=== PATIENT | male | born 1945 | race African-American/Black ===

== ENCOUNTER 2016-11-26 06:15 | Inpatient (IN) ==
[2016-11-26] MEDS ORDERED: *HR* FentaNYL (PF) 100 MCG/2 ML VIAL ONE (06:33)
[2016-11-26] MEDS ORDERED: *HR* Midazolam HCl 2 MG/2 ML VIAL ONE (06:33)
[2016-11-26] MEDS ORDERED: Dexamethasone 4 MG/ML VIAL ONE (06:35)
[2016-11-26] MEDS ORDERED: *HR* Rocuronium Bromide 50 MG/5 ML VIAL ONE ×3 (06:35→10:47)
[2016-11-26] MEDS ORDERED: Lidocaine -MPF 2% 2 ML VIAL ONE (06:35)
[2016-11-26] MEDS ORDERED: Lidocaine -MPF 4% 5 ML AMPUL ONE (06:35)
[2016-11-26] MEDS ORDERED: *HR* Succinylcholine 200 MG/10 ML VIAL IVP ONE (06:35)
[2016-11-26] MEDS ORDERED: *HR* Propofol 200 MG/20 ML VIAL IVP ONE (06:35)
[2016-11-26] MEDS ORDERED: Ondansetron 4 MG/2 ML VIAL ONE (06:35)
[2016-11-26] MEDS ORDERED: Lidocaine 1% 20 ML MDV ID ONE (06:50)
[2016-11-26] MEDS ORDERED: CeFAZolin Pre 2,000 MG/100 ML 2,000 MG/100 ML BAG IVPB ONE (06:50)
[2016-11-26] MEDS ORDERED: Ringers Solution, Lactated 1,000 ML IVC SCH (07:00)
--- NOTE | 2016-11-26 07:05 | Anesthesia Evaluation PreOp ---
Date of Encounter: 11/26/16 Time of Encounter: 07:03 - Past History Planned Operation: Right Lap. Radicle Nephrectomy Cardiac History: HTN Pulmonary History: Denies Any Significant HX SKEIN DYER History: Denies Any Significant HX Other Medical History: Diabetes Type II, Other (Gout) Anesthesia History: No Prior Anesthetic Complications, Past Anesthesia (1989) Alcohol Use: none Drug use: none Medications and Allergies Allopurinol [Zyloprim] 300 mg PO DAILY 07/12/16 [History] Gabapentin [Neurontin] 300 mg PO BID 07/12/16 [History] GlyBURIDE 5 mg PO BIDWM 07/12/16 [History] Lisinopril [Zestril] 10 mg PO DAILY 07/12/16 [History] Lovastatin 10 mg PO DAILY 07/12/16 [History] Metformin HCl [Glucophage] 1,000 mg PO BID 07/12/16 [History] HYDROcodone/Acet 10/325 mg [Stanford 10-325 mg] 1 tab PO Q6HR PRN #42 tab 10/22/16 [Rx] Linagliptin [Tradjenta] 5 mg PO DAILY 10/22/16 [History] Ondansetron HCl [Zofran] 4 mg PO Q6HR PRN #20 tablet 10/22/16 [Rx] Aspirin [Lo-Dose Aspirin EC] 81 mg PO DAILY 11/05/16 [History] Tamsulosin HCl [Flomax] 0.4 mg PO DAILY 11/05/16 [History] Allergies No Known Allergies Allergy (Verified 10/22/16 14:41) - Meds/Allergy Pre-op Review Medications Reviewed: Yes Allergies Reviewed: Yes Beta Blockers on Current Med List: Yes If Beta Blockers taken, Date/Time (Last Dose taken): Atenolol @ 0705: 11/26/2016 Anesthesia Results - Labs Laboratory Tests 10/22/16 11/14/16 11/14/16 15:19 15:45 15:45 WBC 7.2 Hgb 12.4 L Hct 37.0 L Plt Count 135 L INR 1.2 Sodium 138 Potassium 4.4 Chloride 106 Carbon Dioxide 21 BUN 13 Creatinine 0.92 - Imaging EKG: image reviewed (ST, LAFB) Anesthesia Exam O2 Sat Height 1.88 m Height 1.88 m Height 1.88 m Weight 107.501 kg Weight 107.501 kg Weight 107.501 kg O2 Sat by Pulse Oximetry 99 O2 Sat by Pulse Oximetry 99 Vital Signs Temp Pulse Resp BP Pulse Ox 98.1 F 97 18 124/66 99 11/26/16 06:38 11/26/16 06:38 11/26/16 06:38 11/26/16 06:38 11/26/16 06:38 Height: 6'2'' Weight: 237# NPO (# of Hours): > 8 hrs Pain Scale: 0 Pain Scale Used: Numeric (1 - 10) - HEENT Pupil (Motor): Pupils equal, EOMI Mallampati: III Teeth: Edentulous Oral Opening: Greater than 3 - SKEIN DYER LOC: Oriented SKEIN DYER Motor: Normal RUE, Normal LUE, Normal RLE, Normal LLE, Normal Face SKEIN DYER Sensory: Normal: RUE, LUE, RLE, LLE, Face - Cardiac Rhythm: Regular Murmur: None JVD: No Carotid Bruit: No - Pulmonary Breath Sounds: bilateral Clear Respiratory Effort: Symmetrical Anesthesia Assess/Plan ASA Score: 2 Modified Arianne Scale for Level of Consciousness: Cooperative, oriented, and tranquil Anesthetic Plan: General Autologous Blood: Yes Monitoring Plan: Standard Monitors, A-Line Recovery Plan: PACU
--- NOTE | 2016-11-26 07:11 | History & Physical Report ---
Date of Encounter: 11/26/16 Time of Encounter: 07:11 24 Hour HP Update - Instructions Instructions: If the History and Physical is less than 30 days old and was completed prior to A.M. admission and or procedure and has NOT been updated on calendar day of procedure please complete this update prior to performing procedure. - Update Patient reports changes in Medical Condition: No Changes in assessment/condition: No Changes in Medication: No Preop tests/diagnostics Reviewed: Yes Surgery Remains Indicated: Yes Consent for Planned Operative Procedure(s) Verified: Yes - Pre-Operative Checklist Preoperative Checklist Indicated: Yes Prophylactic Antibiotic Ordered: Yes Home Medications Include Beta Ralf: Yes Beta Ralf Taken Today (Day of Surgery): Yes Beta Ralf Taken Yesterday (Day Prior to Surgery): Yes Is VTE Prophylaxis Indicated?: Yes
[2016-11-26] MEDS ORDERED: Bupivacaine/EPI 1:200k 0.25%PF 10 ML VIAL INFILT ONE (07:13)
[2016-11-26] MEDS ORDERED: Water for inj. (sterile) 10 ML IV ONE ×2 (07:15→11:19)
[2016-11-26] MEDS ORDERED: *HR* Phenylephrine 10 MG/ML VIAL ONE ×2 (07:16→10:42)
[2016-11-26] MEDS ORDERED: Heparin 1,000 UNITS/500 mL NS 500 ML ONE ×2 (07:17→07:21)
[2016-11-26] MEDS ORDERED: EPHEDrine 50 MG/ML VIAL ONE (08:39)
[2016-11-26] MEDS ORDERED: Neostigmine Methylsulfate 3 MG/3 ML SYRINGE ONE (08:53)
[2016-11-26] MEDS ORDERED: *HR* Promethazine 25 MG/ML VIAL IVP PRN (09:36)
[2016-11-26] MEDS ORDERED: Ondansetron 4 MG/2 ML VIAL IVP ONE (09:36)
[2016-11-26] MEDS ORDERED: Dexamethasone 4 MG/ML VIAL IVP ONE (09:36)
[2016-11-26] MEDS ORDERED: *HR* Labetalol 100 MG/20 ML MDV IVP PRN (09:36)
[2016-11-26] MEDS ORDERED: *HR* HYDROmorphone (PF) 1 MG/ML SYRINGE IVP PRN (09:36)
[2016-11-26] MEDS ORDERED: *HR* Heparin 5,000 UNIT/ML VIAL ONE (10:15)
[2016-11-26 10:26] LABS: ABG Base Excess -2.7 mEq/L (-2.0 to 3.0); ABG HCO3 21.8 mEQ/L (21-27); ABG Oxygen Saturation 100 % (95-98); ABG PCO2 36 mmHg (35-45); ABG PH 7.39 pH Units (7.32-7.45); ABG PO2 223 mmHg (85-104); ABG TCO2 22.9 mEq/L (20-26)
[2016-11-26 11:13] LABS: ABG Hematocrit 33 % (35-51)
[2016-11-26] MEDS ORDERED: *HR* HYDROmorphone 2 MG/ML SYRINGE ONE (11:17)
--- NOTE | 2016-11-26 12:26 | Operative Note ---
Date of procedure: 11/26/16 Pre-op diagnosis: right renal mass Post-op diagnosis: same Procedure: right laparoscopic converted to open radical nephrectomy Urethral dilation and cystoscopy with difficult catheter placement Anesthesia: GETA Surgeon: Quentin Solis Estimated blood loss (cc): 1,000 Specimen: Right kidney Condition: stable Disposition: PACU Procedure in Detail: Patient was taken back to the operating room positioned supine on the operating table. Anesthesia was applied without complication. I attempted to place a Perkins catheter but it would not pass through the mid penile urethra. I suspected a urethral stricture. I passed a sensor wire but it would not pass and then I converted to a zip wire which did pass. I dilated the penile urethra with Leonel dilators from 12 [place] up to 18. Initially the Perkins catheter did not pass after back loading onto the zip wire. I performed a flexible cystoscopy and confirmed proper positioning of the zip wire in the bladder. He did have significant BPH but a fairly patent prostatic urethra. At that point I withdrew the cystoscope and then was able to place the 16 [place] Perkins catheter over the zip wire. I returned clear urine. He was then positioned in a modified 45 up flank position. He was prepped and draped sterile fashion. I made a Whitt incision in the right lower quadrant for my hand port. I was able to enter the peritoneum in this location. 2 additional laparoscopic ports were placed in the umbilicus and then superiorly below the sternum. Using the Harmonic scalpel I began to reflect the descending colon over after incising the white line of Toldt. I quickly realized that the posterior aspect of the colon and mesentery was densely adherent to the tumor. I was able to also image superiorly near the duodenum which did also appear to be adherent to the tumor. After approximately 15-20 minutes of an attempt to free this up laparoscopically I felt it safer to move to an open procedure. A 15 blade scalpel was used to make a modified chevron incision and the underlying tissue was dissected and opened using a left cautery Bovie. I was able to enter the peritoneum over the kidney and then place a Bookwalter retractor. I had good exposure with the Bookwalter in place. Unfortunately, there was minimal surgical planes between the posterior mesentery of the colon and the tumor itself I am concerned that there are may be extension of the tumor in this location. With blunt dissection sharp dissection and Bovie I was finally able to free up the colon and mesentery. I do not feel that I compromised the blood flow to the colon as it appeared viable following the procedure and the mesentery remained intact. There were some nodular areas within the mesentery either reaction or potentially gross extension of tumor. The duodenum was not as densely adherent but still did not separate as freely as it should have. I used a combination of Metzenbaum scissors, blunt dissection and surgical clips to release the duodenum and complete the Merrifield maneuver. There were multiple parasitic vessels surrounding Rolo does fashion which did result in continued blood loss during the procedure. I was able to identify the ureter and likely gonadal vein which appeared significantly dilated. I elected to take both the gonadal vein and ureter with an endovascular stapler. Was able to continue my dissection superiorly until I encountered the renal artery. This was taken with the endovascular stapler. The renal vein was identified as well and taken separately with the endovascular stapler. I was able to free up the posterior and lateral attachments using blunt dissection, clips, Harmonic scalpel. The majority of my bleeding occurred superior to the renal vein as the vena cava and tumor were not easily . It appears that the adrenal vein was injured but I was able to control this with a Sondra clamp. I was eventually able to continue my dissection superiorly using multiple endovascular staple loads to come across the superior pole of the kidney. Multiple clips were placed along the adrenal vein which provided hemostasis and the clamp was removed. I placed FloSeal and Surgicel in this area for further hemostasis. We estimated blood loss at 1000 mL at this point. Both my abdominal incisions were closed using #1 looped PDS for the fascia. This included the hand port and by modified chevron incision. 2-0 Vicryl was used to close the Tiesha's tissue and the skin was all closed with jacy. The patient was stable after the procedure and there were no apparent complications besides the potential tumor extension mentioned in the operative note.
[2016-11-26] MEDS ORDERED: 0.9 % Sodium Chloride 500 ML ONE (12:31)
--- NOTE | 2016-11-26 13:31 | Anesthesia Evaluation Post Op ---
Date of Encounter: 11/26/16 Time of Encounter: 13:28 - Vital Signs Vital Signs: Vital Signs/O2 Sat/Glucose, Most Recent Temp Pulse Resp BP Pulse Ox 97.7 F 78 16 108/55 98 11/26/16 13:06 11/26/16 13:26 11/26/16 13:26 11/26/16 13:26 11/26/16 13:26 Blood Glucose* 183 - Lungs Lungs: Clear Ascult./Percussion - Airway Airway: Non-obstructed - Cardiovascular Regular Rate, Baseline Rhythm - Mental Status Mental Status: Asleep with brisk response to light stimulation - Pain Pain Scale: 0 Pain Scale used: Radha (Faces) - Nausea Vomiting Nausea Vomiting: Not Present - Hydration Hydration: NPO (denies fluid/ice chips. Denies N/V. prefers to rest.) Notes: 11/26/16 13:29 Will ordered [employer] to hang 1 unit PRBC sedondary to hypotension r/t 1000 mL EBL. Unit completely infused at 1325. Patient states "feeling better". VS normal. - Discharge PostOp Status: Transfer Patient to floor
[2016-11-26] MEDS ORDERED: Naloxone 0.4 MG/ML INJ IVP PRN (13:52)
[2016-11-26] MEDS ORDERED: Ondansetron 4 MG/2 ML VIAL IVP PRN (13:52)
[2016-11-26] MEDS ORDERED: *HR* Morphine 2 MG/ML SYRINGE IVP PRN (13:52)
[2016-11-26] MEDS ORDERED: *HR* Promethazine 25 MG/ML VIAL IV PRN (13:52)
[2016-11-26] MEDS: 0.9 % Sodium Chloride 1,000 ML IVC SCH (15:45)
[2016-11-26] MEDS ORDERED: *HR* Dextrose 50 % in Water (Syg) 50 ML SYRINGE IVP PRN (17:36)
[2016-11-26] MEDS ORDERED: D5% in Water 1,000 ML IV PRN (17:36)
[2016-11-26] MEDS ORDERED: Dextrose Gel 15 GM PO PRN ×2 (17:36)
[2016-11-26] MEDS: ceFAZolin 2,000 MG in D5% in Water 100 ML IVPB SCH (18:30)
[2016-11-26] MEDS: Insulin LISPRO 300 UNITS/3 ML VIAL SQ SCH ×2 (18:31→20:52)
[2016-11-26] MEDS: *HR* HYDROmorphone (PF) 1 MG/ML SYRINGE IVP PRN (20:52)
[2016-11-27] MEDS: 0.9 % Sodium Chloride 1,000 ML IVC SCH ×2 (00:34→19:59)
[2016-11-27] MEDS: ceFAZolin 2,000 MG in D5% in Water 100 ML IVPB SCH ×2 (00:34→07:38)
[2016-11-27] MEDS: *HR* HYDROmorphone (PF) 1 MG/ML SYRINGE IVP PRN (00:35)
[2016-11-27 05:09] LABS: Basophils % 0.2 %; Hematocrit 31.7 % (37.5-50.1); Hemoglobin 10.7 g/dL (12.9-16.9); Immature Granulocytes % 0.4 % (0-4); Lymphocytes # 0.9 K/mcL (0.6-4.6); Lymphocytes % 7.3 %; Mean Corpuscular HGB Conc 33.8 g/dL (31.6-35.5); Mean Corpuscular Hemoglobin 31.6 pg (28.0-33.3); Mean Corpuscular Volume 93.5 fL (83.0-100.0); Mean Platelet Volume 11.5 fL (9.4-12.4); Monocytes # 1.8 K/mcL (0.0-1.3); Monocytes % 14.7 %; Neutrophils # 9.2 K/mcL (1.6-8.9); Platelet Count 125 K/mcL (140-400); Red Blood Count 3.39 M/mcL (4.19-5.50); Red Cell Distribution Width 13.8 % (11.5-14.5); Segmented Neutrophils % 77.4 %
[2016-11-27 05:37] LABS: BUN/Creatinine Ratio 14 (6-26); Blood Urea Nitrogen 20 mg/dL (8-26); Calcium 7.8 mg/dL (8.6-10.8); Carbon Dioxide 19 mEq/L (19-29); Chloride 105 mEq/L (98-109); Glucose 193 mg/dL (70-99); Osmolality,Calculated 284 (280-300); Potassium 4.4 mEq/L (3.5-4.5); Sodium 133 mEq/L (136-145); eGFR For African Americans > 60 (> 60); eGFR For Non-African Americans 50 (> 60)
--- NOTE | 2016-11-27 07:25 | Urology Progress Note ---
Date of Encounter: 11/27/16 Time of Encounter: 07:23 - Assessment and Plan (1) Right kidney mass Current Visit: No Status: Acute Assessment and plan: lap converted to open right radiacl nephrectomy. difficult case. stable this AM. labs/vitals OK. keep cath in place bc dilated urethral stricture. out of bed to chair today. apply abd binder. Progress Note Subjective: still having pain Narrative: feels OK. expected pain Objective Initial Vital Signs Temp Pulse Resp BP Pulse Ox 98.1 F 97 18 124/66 99 11/26/16 06:38 11/26/16 06:38 11/26/16 06:38 11/26/16 06:38 11/26/16 06:38 - General physical appearance Present: well developed, no distress - Additional Exam russell cath with clear urine. - Labs 11/27/16 04:12 11/27/16 04:12 Diabetes panel 11/27/16 Range/Units 04:12 Sodium 133 L (136-145) mEq/L Potassium 4.4 (3.5-4.5) mEq/L Chloride 105 (98-109) mEq/L Carbon Dioxide 19 (19-29) mEq/L BUN 20 (8-26) mg/dL Creatinine 1.41 H (0.72-1.25) mg/dL Glucose 193 H (70-99) mg/dL Calcium 7.8 L (8.6-10.8) mg/dL Calcium panel 11/27/16 Range/Units 04:12 Calcium 7.8 L (8.6-10.8) mg/dL Pituitary panel 11/27/16 Range/Units 04:12 Sodium 133 L (136-145) mEq/L Potassium 4.4 (3.5-4.5) mEq/L Chloride 105 (98-109) mEq/L Carbon Dioxide 19 (19-29) mEq/L BUN 20 (8-26) mg/dL Creatinine 1.41 H (0.72-1.25) mg/dL Glucose 193 H (70-99) mg/dL Calcium 7.8 L (8.6-10.8) mg/dL Adrenal panel 11/27/16 Range/Units 04:12 Sodium 133 L (136-145) mEq/L Potassium 4.4 (3.5-4.5) mEq/L Chloride 105 (98-109) mEq/L Carbon Dioxide 19 (19-29) mEq/L BUN 20 (8-26) mg/dL Creatinine 1.41 H (0.72-1.25) mg/dL Glucose 193 H (70-99) mg/dL Calcium 7.8 L (8.6-10.8) mg/dL - VTE Documentation of Mechanical Device: Intermittent pneumatic compression device Consult Discharge Plan - Plan Referrals: Debi Richard [Primary Care Provider] -
[2016-11-27] MEDS: *HR* GlyBURIDE 5 MG TABLET PO SCH ×2 (07:37→16:42)
[2016-11-27] MEDS: Insulin LISPRO 300 UNITS/3 ML VIAL SQ SCH ×4 (07:40→22:54)
[2016-11-27] MEDS: *HR* OxyCODONE/APAP 5/325 TABLET PO PRN ×2 (09:59→22:52)
[2016-11-28] MEDS: *HR* OxyCODONE/APAP 5/325 TABLET PO PRN ×2 (03:12→19:47)
[2016-11-28] MEDS: 0.9 % Sodium Chloride 1,000 ML IVC SCH ×3 (03:13→19:50)
--- NOTE | 2016-11-28 07:08 | Urology Progress Note ---
Date of Encounter: 11/28/16 Time of Encounter: 07:06 - Assessment and Plan (1) Right kidney mass Current Visit: No Status: Acute Assessment and plan: hold diet bc some nausea. pt is passing gas. remove russell. will check labs bc pt doesnt feel as good as yesterday. overall doing OK. Progress Note Subjective: still having pain, flatus, nausea Objective Initial Vital Signs Temp Pulse Resp BP Pulse Ox 98.1 F 97 18 124/66 99 11/26/16 06:38 11/26/16 06:38 11/26/16 06:38 11/26/16 06:38 11/26/16 06:38 - General physical appearance Present: well developed, no distress - Abdomen Present: distended (distanded but soft. incisions closed and dry. ) - Additional Exam urine clear. - Labs 11/27/16 04:12 11/27/16 04:12 - VTE Documentation of Mechanical Device: Intermittent pneumatic compression device Consult Discharge Plan - Plan Referrals: Debi Richard [Primary Care Provider] -
[2016-11-28 07:59] LABS: Hematocrit 34.8 % (37.5-50.1); Hemoglobin 11.5 g/dL (12.9-16.9); Mean Corpuscular Hemoglobin 30.8 pg (28.0-33.3); Mean Corpuscular Volume 93.3 fL (83.0-100.0); Mean Platelet Volume 10.5 fL (9.4-12.4); Platelet Count 121 K/mcL (140-400); Red Blood Count 3.73 M/mcL (4.19-5.50); Red Cell Distribution Width 13.6 % (11.5-14.5)
[2016-11-28 08:12] LABS: Potassium 4.2 mEq/L (3.5-4.5)
[2016-11-28] MEDS: *HR* GlyBURIDE 5 MG TABLET PO SCH ×2 (08:28→18:52)
[2016-11-28] MEDS: Insulin LISPRO 300 UNITS/3 ML VIAL SQ SCH ×4 (08:28→21:41)
[2016-11-29] MEDS: 0.9 % Sodium Chloride 1,000 ML IVC SCH ×3 (04:03→16:33)
[2016-11-29] MEDS: *HR* OxyCODONE/APAP 5/325 TABLET PO PRN (04:10)
[2016-11-29] MEDS: *HR* HYDROmorphone (PF) 1 MG/ML SYRINGE IVP PRN (08:00)
[2016-11-29] MEDS: Insulin LISPRO 300 UNITS/3 ML VIAL SQ SCH ×4 (08:00→21:28)
[2016-11-29] MEDS: *HR* GlyBURIDE 5 MG TABLET PO SCH ×2 (08:01→16:35)
--- NOTE | 2016-11-29 09:11 | Urology Progress Note ---
Date of Encounter: 11/29/16 Time of Encounter: 09:09 - Assessment and Plan (1) Right kidney mass Current Visit: No Status: Acute Assessment and plan: hold advancing diet. keep cath in place for now. dulcolax suppository to promote bowel motility. continue ambulating. Progress Note Narrative: pt couldnt void overnight and cath reinserted. 2 episodes of N/V this AM. + flatus. Objective Initial Vital Signs Temp Pulse Resp BP Pulse Ox 98.1 F 97 18 124/66 99 11/26/16 06:38 11/26/16 06:38 11/26/16 06:38 11/26/16 06:38 11/26/16 06:38 - General physical appearance Present: well developed, no distress - Abdomen Present: soft, distended - Additional Exam incisions intact. no redness. - Labs 11/28/16 07:49 11/28/16 07:49 - VTE Documentation of Mechanical Device: Intermittent pneumatic compression device Consult Discharge Plan - Plan Referrals: Debi Richard [Primary Care Provider] -
[2016-11-29] MEDS: Bisacodyl 10 MG RECTAL SUPPOSITORY RC SCH (12:17)
[2016-11-30] MEDS: *HR* OxyCODONE/APAP 5/325 TABLET PO PRN ×3 (01:44→23:19)
[2016-11-30] MEDS: 0.9 % Sodium Chloride 1,000 ML IVC SCH ×7 (05:44→23:20)
--- NOTE | 2016-11-30 08:16 | Urology Progress Note ---
Date of Encounter: 11/30/16 Time of Encounter: 08:14 - Assessment and Plan (1) Right kidney mass Current Visit: No Status: Acute Assessment and plan: encourage ambulation. continue clears. sit in chair as much as possible. will check labs. Progress Note Narrative: POD 4 from right nephrectomy. + ambulation. + flatus, still with some vomiting which he states is because nothing tastes good. Objective Initial Vital Signs Temp Pulse Resp BP Pulse Ox 98.1 F 97 18 124/66 99 11/26/16 06:38 11/26/16 06:38 11/26/16 06:38 11/26/16 06:38 11/26/16 06:38 - General physical appearance Present: well developed - Abdomen Present: soft (incisions c/d/i) - Labs 11/28/16 07:49 11/28/16 07:49 - VTE Documentation of Mechanical Device: Intermittent pneumatic compression device Consult Discharge Plan - Plan Referrals: Debi Richard [Primary Care Provider] -
[2016-11-30 08:47] LABS: Basophils # 0.1 K/mcL (0.0-0.2); Basophils % 0.6 %; Eosinophils # 0.4 K/mcL (0.0-0.6); Eosinophils % 2.9 %; Hematocrit 32.3 % (37.5-50.1); Immature Granulocytes % 0.4 % (0-4); Lymphocytes # 1.3 K/mcL (0.6-4.6); Lymphocytes % 9.6 %; Mean Corpuscular HGB Conc 34.1 g/dL (31.6-35.5); Mean Corpuscular Hemoglobin 31.9 pg (28.0-33.3); Mean Corpuscular Volume 93.6 fL (83.0-100.0); Mean Platelet Volume 10.7 fL (9.4-12.4); Monocytes # 1.6 K/mcL (0.0-1.3); Monocytes % 11.7 %; Neutrophils # 10.4 K/mcL (1.6-8.9); Platelet Count 190 K/mcL (140-400); Red Blood Count 3.45 M/mcL (4.19-5.50); Red Cell Distribution Width 13.8 % (11.5-14.5); Segmented Neutrophils % 74.8 %
[2016-11-30 08:58] LABS: Calcium 8.4 mg/dL (8.6-10.8); Magnesium 1.2 mg/dL (1.6-2.6); Potassium 3.6 mEq/L (3.5-4.5)
[2016-11-30] MEDS: Bisacodyl 10 MG RECTAL SUPPOSITORY RC SCH (09:14)
[2016-11-30] MEDS: *HR* GlyBURIDE 5 MG TABLET PO SCH ×2 (09:14→18:30)
[2016-11-30] MEDS: Insulin LISPRO 300 UNITS/3 ML VIAL SQ SCH ×4 (09:14→20:51)
[2016-11-30] MEDS ORDERED: Magnesium Sulfate 2 GM in D5% in Water 100 ML IVPB ONE (09:16)
[2016-12-01] MEDS: *HR* OxyCODONE/APAP 5/325 TABLET PO PRN ×3 (03:52→23:21)
[2016-12-01] MEDS: 0.9 % Sodium Chloride 1,000 ML IVC SCH ×3 (07:20→16:09)
--- NOTE | 2016-12-01 08:19 | Urology Progress Note ---
Date of Encounter: 12/01/16 Time of Encounter: 08:16 - Assessment and Plan (1) Right kidney mass Current Visit: No Status: Acute Assessment and plan: ambulation. Chest xray for crepitus. continue using IS. continue clears until nausea resolves. sit in chair as much as possible Progress Note Narrative: pOD 5 from right nephrectomy. doreen a little more liquids. no more vomitting last night. + flatus and possible small BM. + ambulation. nurse noted some crepitus on right chest. Objective Initial Vital Signs Temp Pulse Resp BP Pulse Ox 98.1 F 97 18 124/66 99 11/26/16 06:38 11/26/16 06:38 11/26/16 06:38 11/26/16 06:38 11/26/16 06:38 - General physical appearance Present: well developed - Respiratory Present: other (+ crepitus on right lower chest no pain on palpation) - Abdomen Present: soft (softer than before. ) - Labs 11/30/16 08:28 11/30/16 08:28 Diabetes panel 11/30/16 Range/Units 08:28 Sodium 138 (136-145) mEq/L Potassium 3.6 (3.5-4.5) mEq/L Chloride 106 (98-109) mEq/L Carbon Dioxide 23 (19-29) mEq/L BUN 31 H D (8-26) mg/dL Creatinine 1.52 H (0.72-1.25) mg/dL Glucose 182 H (70-99) mg/dL Calcium 8.4 L (8.6-10.8) mg/dL Calcium panel 11/30/16 Range/Units 08:28 Calcium 8.4 L (8.6-10.8) mg/dL Pituitary panel 11/30/16 Range/Units 08:28 Sodium 138 (136-145) mEq/L Potassium 3.6 (3.5-4.5) mEq/L Chloride 106 (98-109) mEq/L Carbon Dioxide 23 (19-29) mEq/L BUN 31 H D (8-26) mg/dL Creatinine 1.52 H (0.72-1.25) mg/dL Glucose 182 H (70-99) mg/dL Calcium 8.4 L (8.6-10.8) mg/dL Adrenal panel 11/30/16 Range/Units 08:28 Sodium 138 (136-145) mEq/L Potassium 3.6 (3.5-4.5) mEq/L Chloride 106 (98-109) mEq/L Carbon Dioxide 23 (19-29) mEq/L BUN 31 H D (8-26) mg/dL Creatinine 1.52 H (0.72-1.25) mg/dL Glucose 182 H (70-99) mg/dL Calcium 8.4 L (8.6-10.8) mg/dL - VTE Documentation of Mechanical Device: Intermittent pneumatic compression device Consult Discharge Plan - Plan Referrals: Debi Richard [Primary Care Provider] -
[2016-12-01] MEDS: Insulin LISPRO 300 UNITS/3 ML VIAL SQ SCH ×4 (09:02→20:58)
[2016-12-01] MEDS: Bisacodyl 10 MG RECTAL SUPPOSITORY RC SCH (09:06)
[2016-12-01] MEDS: *HR* GlyBURIDE 5 MG TABLET PO SCH ×2 (09:06→16:23)
[2016-12-02] MEDS: 0.9 % Sodium Chloride 1,000 ML IVC SCH ×4 (00:27→07:36)
[2016-12-02] MEDS: Insulin LISPRO 300 UNITS/3 ML VIAL SQ SCH ×4 (07:25→20:25)
[2016-12-02] MEDS: *HR* GlyBURIDE 5 MG TABLET PO SCH ×3 (07:32→18:27)
[2016-12-02] MEDS: Bisacodyl 10 MG RECTAL SUPPOSITORY RC SCH (07:32)
[2016-12-02] MEDS: *HR* OxyCODONE/APAP 5/325 TABLET PO PRN ×2 (07:32→18:33)
--- NOTE | 2016-12-02 12:25 | Urology Progress Note ---
Date of Encounter: 12/02/16 Time of Encounter: 12:23 - Assessment and Plan (1) Right kidney mass Current Visit: No Status: Acute Assessment and plan: pt has definately turned the corner and doing well. cath removed. attempt voiding trial. hopefully discharge in the AM Progress Note Subjective: feels better, tolerating a regular diet, flatus Objective Initial Vital Signs Temp Pulse Resp BP Pulse Ox 98.1 F 97 18 124/66 99 11/26/16 06:38 11/26/16 06:38 11/26/16 06:38 11/26/16 06:38 11/26/16 06:38 - General physical appearance Present: well developed, no distress - Abdomen Present: soft - Additional Exam cath with clear urine. cath removed by MD - Labs 11/30/16 08:28 11/30/16 08:28 - VTE Documentation of Mechanical Device: Intermittent pneumatic compression device Consult Discharge Plan - Plan Referrals: Debi Richard [Primary Care Provider] -
[2016-12-03] MEDS: *HR* OxyCODONE/APAP 5/325 TABLET PO PRN ×2 (05:37→09:55)
--- NOTE | 2016-12-03 06:59 | Discharge Summary ---
Date of Encounter: 12/03/16 Time of Encounter: 06:54 - Discharge Diagnosis (1) Right kidney mass Priority: Primary Status: Resolved (2) Urinary retention Priority: Secondary Status: Acute - Discharge Medications Prescriptions: OxyCODONE/APAP 5/325 [Percocet 5/325 MG] 1 each PO Q4HR PRN #30 tablet PRN Reason: Pain Home Medications: Allopurinol [Zyloprim] 300 mg PO DAILY 07/12/16 [History] GlyBURIDE 5 mg PO BIDWM 07/12/16 [History] Lisinopril [Zestril] 10 mg PO DAILY 07/12/16 [History] Linagliptin [Tradjenta] 5 mg PO DAILY 10/22/16 [History] Aspirin [Lo-Dose Aspirin EC] 81 mg PO DAILY 11/05/16 [History] Tamsulosin HCl [Flomax] 0.4 mg PO DAILY 11/05/16 [History] OxyCODONE/APAP 5/325 [Percocet 5/325 MG] 1 each PO Q4HR PRN #30 tablet 12/03/16 [Rx] Allergies/Adverse Reactions: Allergies No Known Allergies Allergy (Verified 10/22/16 14:41) Labs on day of discharge: Labs from last 24 hours 12/02/16 12/02/16 16:20 11:01 POC Glucose 123 H 153 H - Impressions ITS Impressions Chest X-Ray 12/01/16 08:14 IMPRESSION: Linear atelectasis at the lung bases Pneumoperitoneum D/ / 12/01/2016 09:55:59 Ghulam Ruiz MD / [email or web address] Interpreting Provider: Ghulam Ruiz MD Date of admission: 11/26/16 13:37 Primary care physician: Debi Richard Discharging clinician: Quentin Solis Anticipated date of discharge: 12/03/16 - Patient Status Disposition: Home, Self-Care Condition: Good Functional capacity at discharge: independent ambulation Overall status at discharge: patient is progressing back to baseline - Discharge Instructions Follow Up With: Debi Richard [Primary Care Provider] - Quentin Solis MD [Partnered Physician] - (next week for voiding trial) Additional Instructions: OK to shower. avoid baths and swimming. keep cath in place at discharge. will attempt voiding trial at followup avoid heavy lifting and activity no driving until at least followup appointment with urology wear abd binder for comfort - Diet and Activity Activity: increase activity as tolerated Diet: diabetic diet - Hospital Course Hospital course: Mr. Olivera is a 71 year old male POD#6 laparoscopic converted to open radical nephrectomy. T3a. slow return bowel function but doing better. has failed 2 voiding trials and plan to discharge with cath in place. vitals stable. mild tachycardia. - Time Spent with Patient Total time spent providing and/or coordinating discharge services: Less than 30 minutes Exam Initial Vital Signs Temp Pulse Resp BP Pulse Ox 98.1 F 97 18 124/66 99 11/26/16 06:38 11/26/16 06:38 11/26/16 06:38 11/26/16 06:38 11/26/16 06:38 - General physical appearance Present: well developed, no distress - Abdomen Abdomen: Present: soft - Additional Findings russell with clear urine. - VTE Documentation of Mechanical Device: Intermittent pneumatic compression device
[2016-12-03 08:00] VITALS: BP 130/65
[2016-12-03] MEDS: Insulin LISPRO 300 UNITS/3 ML VIAL SQ SCH (09:02)
[2016-12-03] MEDS: Bisacodyl 10 MG RECTAL SUPPOSITORY RC SCH (09:04)
[2016-12-03] MEDS: *HR* GlyBURIDE 5 MG TABLET PO SCH (09:09)
== END 2016-12-03 12:06 | disposition home or self-care (01) | DRG 658 ==
LOC: SAMDAY 06:15 → 3ANU 13:37
PROVIDERS: ADMIT Urology; ATTEND Urology

== ENCOUNTER 2016-12-05 15:21 | Inpatient (IN) ==
[2016-12-05] MEDS ORDERED: Naloxone 0.4 MG/ML INJ IVP PRN (19:17)
[2016-12-05] MEDS ORDERED: Acetaminophen 325 MG TABLET PO PRN (19:17)
[2016-12-05] MEDS ORDERED: *HR* OxyCODONE/APAP 5/325 TABLET PO PRN (19:22)
[2016-12-05] MEDS ORDERED: 0.9 % Sodium Chloride 1,000 ML IVC SCH ×2 (19:30→19:41)
[2016-12-05] MEDS ORDERED: Vancomycin 1,750 MG in D5% in Water 500 ML IVPB ONE (20:00)
[2016-12-05] MEDS ORDERED: *HR* Phytonadione 5 MG TABLET PO ONE (20:00)
[2016-12-05 20:56] LABS: BUN/Creatinine Ratio 27 (6-26); Blood Urea Nitrogen 39 mg/dL (8-26); eGFR For African Americans 59 (> 60); eGFR For Non-African Americans 49 (> 60)
--- NOTE | 2016-12-05 21:37 | Internal Med History&Physical ---
<Tere Singleton - Last Filed: 12/06/16 00:08> Date of Encounter: 12/05/16 Time of Encounter: 21:14 Assessment and Plan (1) HCAP (healthcare-associated pneumonia) Status: Acute Patient discharged on 12/03/16 after open right nephrectomy for stage 3 kidney cancer. Patient now weak, lethargic, coughing. CT of the chest showed airspace disease in lower lobes, left upper lobe and lingula. Patient is afebrile, WBC 11.1, mildly tachycardic in the 90s, but not tachypnic. Does not meet sepsis criteria, however Lactate elevated at 3.3. Will recheck lactate. 2L total of fluid bolus IV fluids 0.9NS at 150mL/hr x 1 bag Vanc and Zosyn IVPB titrate oxygen to maintain O2 sat > 92% Duonebs QID (2) Elevated INR Status: Acute Patient's INR elevated to 2.05. Patient not on coumadin or anti-coagulation. LFTs normal except elevated Alk phos of 142 and Albumin low at 2.3. Suspect possible synthetic dysfunction of the liver. 10mg Vitamin K ordered. Will check LFTs and coags again in the morning. (3) Acute kidney injury Status: Acute BUN/Cr 49/2.28 at [facility] ED. Patient had a recent right radical nephrectomy. Cr was up from 1.52 on discharge after Nephrectomy.He has a russell catheter in place. Patient has received fluids and had a recheck of BUN/Cr this evening and has improved to 39/1.43. CHRIS likely related to dehydration. Will check labs again in the morning. (4) Renal cell carcinoma Status: Acute Patient s/p right radical nephrectomy by Dr. Solis on 11/26. Consult to Urology ordered, will need to be called in the morning. Qualifiers: Laterality: right Qualified Code(s): C64.1 - Malignant neoplasm of right kidney, except renal pelvis (5) Type 2 diabetes mellitus Status: Acute Diabetic diet check blood sugars ACHS sliding scale correction dose ACHS hypoglycemic protocol. Qualifiers: Diabetes mellitus complication status: without complication Diabetes mellitus intermediate teacher insulin use: with intermediate teacher use Qualified Code(s): E11.9 - Type 2 diabetes mellitus without complications; Z79.4 - rodent exterminator (current) use of insulin (6) DVT prophylaxis Status: Acute Up to chair BID SCDs Patient's INR is elevated despite not being on anticoagulation. Will hold any additional anticoagulation at this point. Internal Medicine - H&P: HPI Chief complaint: weakness and lethargy Admitted From: Hospital to Hospital Transfer Plans for Post Hospital Care: Home History of present illness: Mr. Olivera is a 71 year old male with hypertension, diabetes, renal cell cancer status post recent open right radical nephrectomy discharged on December 03, transferred from [facility] emergency department with pneumonia. Patient's called the squad because patient was weak and lethargic, sleepy and confused. Evaluation in the [facility] emergency department showed the patient was satting in the 80s on room air, his CRP was elevated to 11.9, white blood cell count was mildly elevated to 11.1, BUN elevated to 49, creatinine was elevated to 2.28, lactate was elevated at 3.3. CT of the chest showed airspace disease in the lower lobes and left upper lobe and lingula patient INR was also elevated to 2.05, though patient is not on Coumadin or anticoagulation. On exam, patient is drowsy, oriented to person, only answering questions with yes or no, not able to elaborate. Patient's abdomen is soft but distended. He has surgical incisions with jacy near his right groin approximately 8 cm and across his mid abdomen approximately 28 cm, both are clean, intact. The midabdomen incision has some small amount of serosanguineous drainage. He also has 2 additional laparoscopic incisions with 2 jacy each also clean dry and intact. Heart has regular rate and rhythm, lungs have rhonchi, and rales on the left. Past Med Surg Social Fam HX - Past Medical History Medical history: cancer (Stage 3 Right renal cancer), diabetes, hypertension, other Psychiatric history: no psych history - Past Surgical History Surgical History: cancer surgery (Right radical nephrectomy) - Social History Smoking Status: Never smoker Smokeless Tobacco Status: Yes Alcohol use: occasionally Drug use: none Internal Medicine - H&P: Meds Allopurinol [Zyloprim] 300 mg PO DAILY 07/12/16 [History] GlyBURIDE 10 mg PO BIDWM 07/12/16 [History] Lisinopril [Zestril] 10 mg PO DAILY 07/12/16 [History] Aspirin [Lo-Dose Aspirin EC] 81 mg PO DAILY 11/05/16 [History] Tamsulosin HCl [Flomax] 0.4 mg PO DAILY 11/05/16 [History] Metformin [Glucophage] 1,000 mg PO BIDWM 12/06/16 [History] Levofloxacin 750 mg PO DAILY #5 tablet 12/08/16 [Rx] OxyCODONE/APAP 5/325 [Percocet 5/325 MG] 1 each PO Q4HR PRN #30 tablet 12/08/16 [Rx] Allergies No Known Allergies Allergy (Verified 10/22/16 14:41) ROS unobtainable: due to mental status All Systems PM: A 10-system review of systems was performed and is negative for pertinent findings except as documented above in the HPI. - Constitutional Vitals: Temp Pulse Resp BP Pulse Ox 97.4 F L 92 18 114/73 100 12/05/16 17:36 12/05/16 17:36 12/05/16 17:36 12/05/16 17:36 12/05/16 17:36 General appearance: Present: no acute distress. Absent: answers questions appropriately - Head Head exam: Present: atraumatic, normocephalic - Eye Eye exam: Present: PERRL, conjuntiva pink, sclera anicteric Pupils: Present: PERRL - Neck Neck exam general surgery: Present: supple, trachea midline. Absent: lymphadenopathy - Respiratory Respiratory exam: Present: rales, rhonchi. Absent: accessory muscle use, wheezes - Cardiovascular Cardiovascular exam: Present: RRR, +S1, +S2, systolic murmur. Absent: diastolic murmur, gallop, rubs - GI/Abdominal GI/Abdominal exam: Present: distended, normal bowel sounds, soft, no peritoneal signs. Absent: tenderness - Extremities Exam Extremities exam: Present: pedal edema (trace), warm, radial pulses palpable and symetrical. Absent: calf tenderness, cyanotic - Neurological Exam Neurological exam: Present: CN II-XII intact, no focal deficits. Absent: facial droop, speech deficit - Expanded Neurological Exam Patient oriented to: Present: person - Skin Skin exam: Present: dry, intact Internal Med - H&P Results - Labs CBC & Chem 7: 12/05/16 20:37 Labs: BMP 12/05/16 20:37 BUN 39 H Creatinine 1.43 H Labs from [facility]: Na 140 K 4.3 Cl 107 Co2 19 BUN 49 Cr 2.28 Glu 181 Ca 8.1 AST 32 ALT 24 Alk Phos 142 Tbili 0.9 Albumin 2.3 total protein 5.9 BUN/Cr ratio 21.4 CRP 11.9 PT 17.7 INR 2.05 PTT 31.4 WBC 11.1 HGB 10.4 Hct 31.9 PLT 168 pH 7.47 PCO2 23.0 PO2 78 Bicarb 16.7 CO2 total 17.4 O2 Sat 96% UA Urine pH 5.5 Spec Grav 1.020 Protein Trace Glucose Negative Ketones Trace Bilirubin Small Blood Moderate Urobilogen 0.2 Nitrites Negative Leuk Est Negative RBC 6-10 Epith 0-2 <Jose Luis Pedraza - Last Filed: 12/10/16 10:22> Internal Medicine - H&P: HPI History of present illness: Mr. Olivera is a 71 year old male All Systems PM: A 10-system review of systems was performed and is negative for pertinent findings except as documented above in the HPI. - Constitutional Vitals: Temp Pulse Resp BP Pulse Ox 98.4 F 99 16 126/66 99 12/08/16 10:13 12/08/16 10:13 12/08/16 10:13 12/08/16 10:13 12/08/16 10:13 Internal Med - H&P Results - Labs CBC & Chem 7: 12/07/16 08:14 12/07/16 08:14 - Attending Attestation I examined this patient and my medical decision-making was reviewed with the Advanced Practice Nurse. I agree with the documented findings, disposition and treatment plan as described except to the extent set forth below. Patient is being admitted for healthcare associated pneumonia. He has had a recent nephrectomy for renal cell carcinoma. On exam he appears somnolent but arousable. Lung exam reveals diminished breath sounds bilaterally and rales. We will admit, provide treatment with broad-spectrum IV antibiotics for pneumonia.
[2016-12-05] MEDS: 0.9 % Sodium Chloride 1,000 ML IVC SCH ×2 (21:52→22:40)
[2016-12-05] MEDS ORDERED: Dextrose Gel 15 GM PO PRN ×2 (22:06)
[2016-12-05] MEDS ORDERED: D5% in Water 1,000 ML IV PRN (22:06)
[2016-12-05] MEDS ORDERED: *HR* Dextrose 50 % in Water (Syg) 50 ML SYRINGE IVP PRN (22:06)
[2016-12-05] MEDS: Ipratropium/Albuterol Neb 3 ML IH SCH (22:58)
[2016-12-06] MEDS ORDERED: *HR* Heparin 5,000 UNIT/ML VIAL SQ SCH
[2016-12-06] MEDS: Piperacillin/Tazobactam 3.375 GM in D5% in Water (Mini-Bag+) 100 ML IVPB SCH ×4 (01:47→23:35)
[2016-12-06] MEDS: Insulin LISPRO 300 UNITS/3 ML VIAL SQ SCH ×5 (01:49→23:36)
[2016-12-06] MEDS: Ipratropium/Albuterol Neb 3 ML IH SCH ×3 (03:39→15:25)
[2016-12-06 04:44] LABS: INR 1.6; Prothrombin Time 17.7 Seconds (9.4-12.1)
[2016-12-06 04:47] LABS: Activated Partial Thrombo Time 28.7 Seconds (26.0-36.0)
[2016-12-06 04:51] LABS: Mean Corpuscular HGB Conc 32.4 g/dL (31.6-35.5); Mean Corpuscular Hemoglobin 30.4 pg (28.0-33.3); Mean Corpuscular Volume 93.9 fL (83.0-100.0); Mean Platelet Volume 10.3 fL (9.4-12.4); Platelet Count 211 K/mcL (140-400); Red Blood Count 3.09 M/mcL (4.19-5.50); Red Cell Distribution Width 13.5 % (11.5-14.5)
[2016-12-06 05:17] LABS: BUN/Creatinine Ratio 25 (6-26); Blood Urea Nitrogen 35 mg/dL (8-26); Calcium 7.4 mg/dL (8.6-10.8); Carbon Dioxide 16 mEq/L (19-29); Chloride 116 mEq/L (98-109); Glucose 126 mg/dL (70-99); Osmolality,Calculated 302 (280-300); Potassium 3.6 mEq/L (3.5-4.5); Sodium 141 mEq/L (136-145); eGFR For African Americans > 60 (> 60); eGFR For Non-African Americans 50 (> 60)
[2016-12-06 05:18] LABS: Albumin/Globulin Ratio 0.6 (1.1-2.2); Bilirubin,Direct 0.4 mg/dL (0.0-0.5); Bilirubin,Indirect 0.3 mg/dL (0.0-1.2); Bilirubin,Total 0.7 mg/dL (0.2-1.2); Globulin 3.4 g/dL (2.4-3.5); Total Protein 5.4 g/dL (6.0-8.3)
[2016-12-06 05:53] LABS: Hemoglobin 9.4 g/dL (12.9-16.9); Lymphocytes # 1.1 K/mcL (0.6-4.6)
[2016-12-06 06:34] LABS: Eosinophils # 0.4 K/mcL (0.0-0.6); Monocytes # 0.4 K/mcL (0.0-1.3); Neutrophils # 8.7 K/mcL (1.6-8.9); Platelet Estimate Normal (Normal)
--- NOTE | 2016-12-06 07:27 | Urology Progress Note ---
Date of Encounter: 12/06/16 Time of Encounter: 07:24 - Assessment and Plan (1) Renal cell carcinoma Current Visit: Yes Status: Acute Assessment and plan: Patient is 1.5 weeks status post a laparoscopic converted to open radical nephrectomy. Final pathology revealed stage T3a. He was discharged from the hospital early in the week and reports that he was doing fine. Readmitted for confusion, lethargy, acute kidney injury. Overall, his abdominal exam is benign and I do not appreciate any acute surgical issues. His labs, including renal function and coags have improved, his mental status is normal and his exam is unconcerning. I do not feel that there is an acute need for repeat imaging of his abdomen at this point. I recommend hydration and supportive care for now. Appreciate hospitalist input. Qualifiers: Laterality: right Qualified Code(s): C64.1 - Malignant neoplasm of right kidney, except renal pelvis Progress Note Subjective: feels better Narrative: Patient transferred in from [facility] last night. When I asked the patient what happened he states "all hell broke loose " he states he had no nausea vomiting. He lost control of his bowels. Per the reported also appears he was lethargic and confused. States he feels better this morning Objective Initial Vital Signs Temp Pulse Resp BP Pulse Ox 97.4 F L 92 18 114/73 100 12/05/16 17:36 12/05/16 17:36 12/05/16 17:36 12/05/16 17:36 12/05/16 17:36 - General physical appearance Present: no distress, no pain - Abdomen Present: soft (Overall the abdomen is soft. There is no significant distention. Incisions are intact with minimal erythema. In the central portion of the Chevron incision there is some serous drainage when I palpate around the area. No obvious hernia. No crepitus. Minimal discomfort on deep palpation) - Genitourinary Urine Appearance: Present: Clear - Psychiatric Present: oriented to person, oriented to place, speech is normal, memory intact. Absent: oriented to time - Labs 12/06/16 04:08 12/06/16 04:08 Diabetes panel 12/05/16 12/06/16 12/06/16 Range/Units 20:37 04:08 04:08 Sodium 141 (136-145) mEq/L Potassium 3.6 (3.5-4.5) mEq/L Chloride 116 H (98-109) mEq/L Carbon Dioxide 16 L (19-29) mEq/L BUN 39 H 35 H (8-26) mg/dL Creatinine 1.43 H 1.41 H (0.72-1.25) mg/dL Glucose 126 H (70-99) mg/dL Calcium 7.4 L (8.6-10.8) mg/dL AST 25 (5-34) Units/L ALT 20 (0-55) Units/L Alkaline Phosphatase 136 H (38-126) Units/L Albumin 2.0 L (3.5-5.0) g/dL Calcium panel 12/06/16 12/06/16 Range/Units 04:08 04:08 Calcium 7.4 L (8.6-10.8) mg/dL Albumin 2.0 L (3.5-5.0) g/dL Pituitary panel 12/05/16 12/06/16 Range/Units 20:37 04:08 Sodium 141 (136-145) mEq/L Potassium 3.6 (3.5-4.5) mEq/L Chloride 116 H (98-109) mEq/L Carbon Dioxide 16 L (19-29) mEq/L BUN 39 H 35 H (8-26) mg/dL Creatinine 1.43 H 1.41 H (0.72-1.25) mg/dL Glucose 126 H (70-99) mg/dL Calcium 7.4 L (8.6-10.8) mg/dL Adrenal panel 12/05/16 12/06/16 12/06/16 Range/Units 20:37 04:08 04:08 Sodium 141 (136-145) mEq/L Potassium 3.6 (3.5-4.5) mEq/L Chloride 116 H (98-109) mEq/L Carbon Dioxide 16 L (19-29) mEq/L BUN 39 H 35 H (8-26) mg/dL Creatinine 1.43 H 1.41 H (0.72-1.25) mg/dL Glucose 126 H (70-99) mg/dL Calcium 7.4 L (8.6-10.8) mg/dL Total Bilirubin 0.7 (0.2-1.2) mg/dL AST 25 (5-34) Units/L ALT 20 (0-55) Units/L Alkaline Phosphatase 136 H (38-126) Units/L Albumin 2.0 L (3.5-5.0) g/dL Consult Discharge Plan - Plan Referrals: Debi Richard [Primary Care Provider] -
[2016-12-06] MEDS: Aspirin Enteric Coated 81 MG Tablet PO SCH (08:46)
[2016-12-06] MEDS: Vancomycin 1,500 MG in D5% in Water 250 ML IVPB SCH ×2 (10:51→19:58)
[2016-12-06] MEDS ORDERED: *HR* OxyCODONE/APAP 5/325 TABLET PO PRN (13:54)
--- NOTE | 2016-12-06 17:14 | Internal Med Progress Note ---
Date of Encounter: 12/06/16 Time of Encounter: 17:12 - Assessment and plan (1) HCAP (healthcare-associated pneumonia) Current Visit: Yes Status: Acute Assessment and plan: CT done at [facility] showed airspace disease. he has been started on IV antibiotics and clinically he appears much better. no leucocytosis or fever. will continue vanco and zosyn for today and de- escalate tomm. will send sputum for studies if he can bring out any. (2) Renal cell carcinoma Current Visit: Yes Status: Acute Assessment and plan: Patient is 1.5 weeks status post a laparoscopic converted to open radical nephrectomy. Final pathology revealed stage T3a. He was discharged from the hospital early in the week and reports that he was doing fine. seen by urology, recommend supportive treatment at this time. Qualifiers: Laterality: right Qualified Code(s): C64.1 - Malignant neoplasm of right kidney, except renal pelvis (3) Type 2 diabetes mellitus Current Visit: Yes Status: Acute Assessment and plan: will conitnue to monitotor fsg, continue humalog Qualifiers: Diabetes mellitus complication status: without complication Diabetes mellitus intermodal customer service insulin use: with detention use Qualified Code(s): E11.9 - Type 2 diabetes mellitus without complications; Z79.4 - halfway (current) use of insulin - Time Spent With Patient 25 - 35 minutes - Subjective Interval history: seen at the bedside,denies any complains and reports he feels a lot better. admitted for HCAP, transfer from [facility]. being treated with IV antibiotic. - Constitutional Vitals: Temp Pulse Resp BP Pulse Ox 97.4 F L 113 20 120/58 99 12/06/16 15:49 12/06/16 15:49 12/06/16 15:49 12/06/16 15:49 12/06/16 15:49 General appearance: Present: A&O X 3, no acute distress. Absent: answers questions appropriately Exam: - Head Head exam: Present: atraumatic, normocephalic - Eye Eye exam: Present: PERRL, conjuntiva pink, sclera anicteric Pupils: Present: PERRL - Neck Neck exam general surgery: Present: supple, trachea midline. Absent: lymphadenopathy - Respiratory Respiratory exam: Present: rales, rhonchi. Absent: accessory muscle use, wheezes - Cardiovascular Cardiovascular exam: Present: RRR, +S1, +S2, systolic murmur. Absent: diastolic murmur, gallop, rubs - GI/Abdominal GI/Abdominal exam: Present: distended, normal bowel sounds, soft, no peritoneal signs. Absent: tenderness - Extremities Exam Extremities exam: Present: pedal edema (trace), warm, radial pulses palpable and symetrical. Absent: calf tenderness, cyanotic - Neurological Exam Neurological exam: Present: CN II-XII intact, no focal deficits. Absent: facial droop, speech deficit - Expanded Neurological Exam Patient oriented to: Present: person - Skin Skin exam: Present: dry, intact Internal Medicine: Result - Labs CBC & Chem 7: 12/06/16 04:08 12/06/16 04:08 Labs: Short CBC 12/06/16 Range/Units 04:08 WBC 10.6 (4.3-11.1) K/mcL Hgb 9.4 L D (12.9-16.9) g/dL Hct 29.0 L (37.5-50.1) % Plt Count 211 (140-400) K/mcL Neutrophils # 8.7 (1.6-8.9) K/mcL BMP 12/05/16 12/06/16 20:37 04:08 Sodium 141 Potassium 3.6 Chloride 116 H Carbon Dioxide 16 L BUN 39 H 35 H Creatinine 1.43 H 1.41 H Glucose 126 H Calcium 7.4 L Liver Function 12/06/16 Range/Units 04:08 Total Bilirubin 0.7 (0.2-1.2) mg/dL Direct Bilirubin 0.4 (0.0-0.5) mg/dL AST 25 (5-34) Units/L ALT 20 (0-55) Units/L Alkaline Phosphatase 136 H (38-126) Units/L Albumin 2.0 L (3.5-5.0) g/dL - ABG Interpretation ABG results: PT/INR, D-dimer PT 17.7 Seconds (9.4-12.1) H 12/06/16 04:08 Consult Discharge Plan - Plan Referrals: Debi Richard [Primary Care Provider] -
[2016-12-06] MEDS ORDERED: Ipratropium/Albuterol Neb 3 ML IH PRN (19:49)
[2016-12-07 08:22] LABS: Basophils # 0.1 K/mcL (0.0-0.2); Basophils % 0.6 %; Eosinophils # 0.4 K/mcL (0.0-0.6); Eosinophils % 4.2 %; Hematocrit 28.3 % (37.5-50.1); Hemoglobin 9.4 g/dL (12.9-16.9); Immature Granulocytes % 1.4 % (0-4); Lymphocytes # 1.4 K/mcL (0.6-4.6); Lymphocytes % 13.6 %; Mean Corpuscular HGB Conc 33.2 g/dL (31.6-35.5); Mean Corpuscular Hemoglobin 31.3 pg (28.0-33.3); Mean Corpuscular Volume 94.3 fL (83.0-100.0); Mean Platelet Volume 9.9 fL (9.4-12.4); Monocytes % 9.7 %; Neutrophils # 7.2 K/mcL (1.6-8.9); Platelet Count 196 K/mcL (140-400); Red Cell Distribution Width 13.8 % (11.5-14.5); Segmented Neutrophils % 70.5 %
[2016-12-07] MEDS: Aspirin Enteric Coated 81 MG Tablet PO SCH (08:23)
[2016-12-07] MEDS: Piperacillin/Tazobactam 3.375 GM in D5% in Water (Mini-Bag+) 100 ML IVPB SCH ×2 (08:23→18:55)
[2016-12-07] MEDS: Insulin LISPRO 300 UNITS/3 ML VIAL SQ SCH ×4 (08:24→21:40)
--- NOTE | 2016-12-07 08:27 | Urology Progress Note ---
Date of Encounter: 12/07/16 Time of Encounter: 08:24 - Assessment and Plan (1) Renal cell carcinoma Current Visit: Yes Status: Acute Assessment and plan: He seems to be doing fairly well today. He is moving his bowels well. He is tolerating diet. No fevers overnight. Abdomen is soft. Appreciate IM support. Continue antibiotics for HCAP. Will continue to monitor. Labs are pending for today. Qualifiers: Laterality: right Qualified Code(s): C64.1 - Malignant neoplasm of right kidney, except renal pelvis Progress Note Narrative: 71-year-old man status post right nephrectomy who returned with hospital- acquired pneumonia. He is feeling better today. He denies any shortness of breath. He is moving his bowels, but does have some loose stools. A Perkins catheter is in place and he has clear urine. Objective Initial Vital Signs Temp Pulse Resp BP Pulse Ox 97.4 F L 92 18 114/73 100 12/05/16 17:36 12/05/16 17:36 12/05/16 17:36 12/05/16 17:36 12/05/16 17:36 - General physical appearance Present: well developed, well nourished, no distress - Respiratory Present: normal respiratory effort - Abdomen Present: soft (Staple line is intact. No erythema to the wound. Mild serous drainage noted from nephrectomy site.) - Labs 12/07/16 08:14 12/06/16 04:08 Consult Discharge Plan - Plan Referrals: Debi Richard [Primary Care Provider] -
[2016-12-07 08:33] LABS: Calcium 7.5 mg/dL (8.6-10.8); Potassium 3.6 mEq/L (3.5-4.5)
--- NOTE | 2016-12-07 17:29 | Internal Med Progress Note ---
Date of Encounter: 12/07/16 Time of Encounter: 17:27 - Assessment and plan (1) HCAP (healthcare-associated pneumonia) Current Visit: Yes Status: Acute Assessment and plan: CT done at [facility] showed airspace disease. he has been started on IV antibiotics and clinically he appears much better. no leucocytosis or fever. will continue vanco and zosyn for now. de - escalate tomm and plan dc. will order PT/OT consult. (2) Renal cell carcinoma Current Visit: Yes Status: Acute Assessment and plan: Patient is 1.5 weeks status post a laparoscopic converted to open radical nephrectomy. Final pathology revealed stage T3a. He was discharged from the hospital early in the week and reports that he was doing fine. seen by urology, recommend supportive treatment at this time. Qualifiers: Laterality: right Qualified Code(s): C64.1 - Malignant neoplasm of right kidney, except renal pelvis (3) Type 2 diabetes mellitus Current Visit: Yes Status: Acute Assessment and plan: will conitnue to monitotor fsg, continue humalog Qualifiers: Diabetes mellitus complication status: without complication Diabetes mellitus terminologist insulin use: with shelter use Qualified Code(s): E11.9 - Type 2 diabetes mellitus without complications; Z79.4 - intermediate manager (current) use of insulin - Time Spent With Patient 25 - 35 minutes - Subjective Interval history: seen at the bedside, reports he feels a lot better but says he feels weak. admitted for HCAP, transfer from [facility]. being treated with IV antibiotic. - Constitutional Vitals: Temp Pulse Resp BP Pulse Ox 98.1 F 97 16 128/64 99 12/07/16 14:44 12/07/16 14:44 12/07/16 14:44 12/07/16 14:44 12/07/16 14:44 General appearance: Present: A&O X 3, no acute distress. Absent: answers questions appropriately Exam: - Head Head exam: Present: atraumatic, normocephalic - Eye Eye exam: Present: PERRL, conjuntiva pink, sclera anicteric Pupils: Present: PERRL - Neck Neck exam general surgery: Present: supple, trachea midline. Absent: lymphadenopathy - Respiratory Respiratory exam: Present: b/l clear Absent: accessory muscle use, wheezes - Cardiovascular Cardiovascular exam: Present: RRR, +S1, +S2, systolic murmur. Absent: diastolic murmur, gallop, rubs - GI/Abdominal GI/Abdominal exam: Present: distended, normal bowel sounds, soft, no peritoneal signs. Absent: tenderness - Extremities Exam Extremities exam: Present: pedal edema (trace), warm, radial pulses palpable and symetrical. Absent: calf tenderness, cyanotic - Neurological Exam Neurological exam: Present: CN II-XII intact, no focal deficits. Absent: facial droop, speech deficit - Expanded Neurological Exam Patient oriented to: Present: person - Skin Skin exam: Present: dry, intact Internal Medicine: Result - Labs CBC & Chem 7: 12/07/16 08:14 12/07/16 08:14 Labs: Short CBC 12/07/16 Range/Units 08:14 WBC 10.2 (4.3-11.1) K/mcL Hgb 9.4 L (12.9-16.9) g/dL Hct 28.3 L (37.5-50.1) % Plt Count 196 (140-400) K/mcL Neutrophils # 7.2 (1.6-8.9) K/mcL BMP 12/07/16 08:14 Sodium 141 Potassium 3.6 Chloride 117 H Carbon Dioxide 18 L BUN 22 D Creatinine 1.52 H Glucose 127 H Calcium 7.5 L - ABG Interpretation ABG results: PT/INR, D-dimer PT 17.7 Seconds (9.4-12.1) H 12/06/16 04:08 Consult Discharge Plan - Plan Referrals: Debi Richard [Primary Care Provider] -
[2016-12-07] MEDS ORDERED: Vancomycin 1,250 MG in D5% in Water 250 ML IVPB SCH (20:00)
[2016-12-08] MEDS: Piperacillin/Tazobactam 3.375 GM in D5% in Water (Mini-Bag+) 100 ML IVPB SCH (00:40)
[2016-12-08] MEDS: Aspirin Enteric Coated 81 MG Tablet PO SCH (08:36)
[2016-12-08] MEDS: Insulin LISPRO 300 UNITS/3 ML VIAL SQ SCH ×2 (08:36→12:17)
[2016-12-08] MEDS ORDERED: levoFLOXacin 750 MG TABLET PO SCH (09:00)
--- NOTE | 2016-12-08 10:00 | Urology Progress Note ---
Date of Encounter: 12/08/16 Time of Encounter: 09:59 - Assessment and Plan (1) Renal cell carcinoma Current Visit: Yes Status: Acute Assessment and plan: Doing well after admission for hospital-acquired pneumonia. I removed his catheter today. He was able to pass a voiding trial. He can follow up with Dr. Solis in 1 week for a staple removal. Qualifiers: Laterality: right Qualified Code(s): C64.1 - Malignant neoplasm of right kidney, except renal pelvis Progress Note Narrative: Doing well today. He is tolerating diet. He has more firm stools today. He wishes to have his catheter removed. I filled his bladder with 240 mL of sterile saline. The catheter was removed. He was able to void 200 mL. He felt his flow was good. Objective Initial Vital Signs Temp Pulse Resp BP Pulse Ox 97.4 F L 92 18 114/73 100 12/05/16 17:36 12/05/16 17:36 12/05/16 17:36 12/05/16 17:36 12/05/16 17:36 - General physical appearance Present: well developed, well nourished, no distress - Respiratory Present: normal respiratory effort - Abdomen Present: soft (Serous drainage from the wound. No evidence of erythema. Ronn are intact.) - Genitourinary Present: normal penis with no external lesions, other (Edematous foreskin.) - Labs 12/07/16 08:14 12/07/16 08:14 Consult Discharge Plan - Plan Referrals: Debi Richard [Primary Care Provider] -
[2016-12-08 10:15] VITALS: BP 126/66
--- NOTE | 2016-12-08 10:29 | Physician Discharge Referral ---
ExtendedCare Referral Info Transfer To: [facility] Provider in Charge: laura nolan Institutional Level of Care: Intermediate - MR - Diagnosis (1) HCAP (healthcare-associated pneumonia) Status: Acute (2) Renal cell carcinoma Status: Acute (3) Type 2 diabetes mellitus Status: Acute - Transfer Medications Prescriptions: OxyCODONE/APAP 5/325 [Percocet 5/325 MG] 1 each PO Q4HR PRN #30 tablet PRN Reason: Pain Levofloxacin 750 mg PO DAILY #5 tablet Home Medications: Allopurinol [Zyloprim] 300 mg PO DAILY 07/12/16 [History] GlyBURIDE 10 mg PO BIDWM 07/12/16 [History] Lisinopril [Zestril] 10 mg PO DAILY 07/12/16 [History] Linagliptin [Tradjenta] 5 mg PO DAILY 10/22/16 [History] Aspirin [Lo-Dose Aspirin EC] 81 mg PO DAILY 11/05/16 [History] Tamsulosin HCl [Flomax] 0.4 mg PO DAILY 11/05/16 [History] Metformin [Glucophage] 1,000 mg PO BIDWM 12/06/16 [History] Levofloxacin 750 mg PO DAILY #5 tablet 12/08/16 [Rx] OxyCODONE/APAP 5/325 [Percocet 5/325 MG] 1 each PO Q4HR PRN #30 tablet 12/08/16 [Rx] Allergies/Adverse Reactions: Allergies No Known Allergies Allergy (Verified 10/22/16 14:41) - Respiratory Orders Smoking Cessation: Smoking cessation has been advised. For more information, call the [place] Tobacco Quit Line at 3-086-JMUY-NOW. - Advance Directives Code Status: Full Code - Mobility Orders Chair, Ambulate - Rehabiliation Orders Rehab Potential: Fair Rehab Orders: Evaluation for Physical Therapy, Evaluation for Occupational Therapy - Diet Orders Regular CERTIFICATION: I certify that the transfer of the above named patient to an Extended Care Facility is necessary for the continuing treatment of the diagnosis listed. The above information is true and accurate reflection of patient's current condition. Confidential - Redisclosure prohibited without a patient's written consent.
--- NOTE | 2016-12-08 10:29 | Discharge Summary ---
Date of Encounter: 12/08/16 Time of Encounter: 10:27 - Discharge Diagnosis (1) HCAP (healthcare-associated pneumonia) Priority: Primary Status: Acute (2) Renal cell carcinoma Priority: Secondary Status: Acute Qualifiers: Laterality: right Qualified Code(s): C64.1 - Malignant neoplasm of right kidney, except renal pelvis (3) Type 2 diabetes mellitus Priority: Secondary Status: Acute Qualifiers: Diabetes mellitus complication status: without complication Diabetes mellitus shelter insulin use: with shelter use Qualified Code(s): E11.9 - Type 2 diabetes mellitus without complications; Z79.4 - dedicated intermodal truck driver (current) use of insulin - Discharge Medications Prescriptions: OxyCODONE/APAP 5/325 [Percocet 5/325 MG] 1 each PO Q4HR PRN #30 tablet PRN Reason: Pain Levofloxacin 750 mg PO DAILY #5 tablet Home Medications: Allopurinol [Zyloprim] 300 mg PO DAILY 07/12/16 [History] GlyBURIDE 10 mg PO BIDWM 07/12/16 [History] Lisinopril [Zestril] 10 mg PO DAILY 07/12/16 [History] Linagliptin [Tradjenta] 5 mg PO DAILY 10/22/16 [History] Aspirin [Lo-Dose Aspirin EC] 81 mg PO DAILY 11/05/16 [History] Tamsulosin HCl [Flomax] 0.4 mg PO DAILY 11/05/16 [History] Metformin [Glucophage] 1,000 mg PO BIDWM 12/06/16 [History] Levofloxacin 750 mg PO DAILY #5 tablet 12/08/16 [Rx] OxyCODONE/APAP 5/325 [Percocet 5/325 MG] 1 each PO Q4HR PRN #30 tablet 12/08/16 [Rx] Allergies/Adverse Reactions: Allergies No Known Allergies Allergy (Verified 10/22/16 14:41) Date of admission: 12/05/16 20:55 Primary care physician: Debi Richard Consults: 12/05/16 19:02 Consult to Mantel Craftsman [CONS] Routine Reason for SW Consult: possible needs for home health when d/c 12/05/16 19:43 Consult to Urology [CONS] Routine Consulting Provider: Urology Flavia Reason for Consult: 71M discharged 12/03 after right radical nephrectomy for right renal mass (Dr. Solis) readmitted with HCAP Call Completed: No 12/07/16 08:28 Consult to Occupational Therapy [CONS] Stat Comment: Evaluate, develop and implement POC Consult to Physical Therapy [CONS] Stat Comment: Evaluate, develop and implement POC Discharging clinician: Tere Qiu Anticipated date of discharge: 12/08/16 - Patient Status Disposition: Transfer Inpatient Rehab Fac Condition: Fair Functional capacity at discharge: independent ambulation Overall status at discharge: patient is back to baseline - Discharge Instructions Follow Up With: Jayden Pretty MD [Partnered Physician] - (A web request will be entered for this appt. Thank you) - Diet and Activity Activity: as per physical therapy Diet: advance to your usual diet Interval History: Mr. Olivera is a 71 year old male with hypertension, diabetes, renal cell cancer status post recent open right radical nephrectomy discharged on December 03, transferred from [facility] emergency department with pneumonia. Patient's called the squad because patient was weak and lethargic, sleepy and confused. Evaluation in the [facility] emergency department showed the patient was satting in the 80s on room air, his CRP was elevated to 11.9, white blood cell count was mildly elevated to 11.1, BUN elevated to 49, creatinine was elevated to 2.28, lactate was elevated at 3.3. CT of the chest showed airspace disease in the lower lobes and left upper lobe and lingula . he was sent to ED for further evlautaion. he was admitted with HCAP and was started emperically on IV antibotics. consulted urology and recommended that there is no surgical issues at this time. he had a russell in place which was draining well and was later removed at the time of dc. he improved clinically with IV antibiotics. he was consulted with PT/OT adn was recommneded to be dc to inpt. rehab,. he is being dc to inpt. rehab in stable condition. Hospital course: Mr. Olivera is a 71 year old male Time spent discussing smoking cessation with patient: more than 10 minutes - Time Spent with Patient Total time spent providing and/or coordinating discharge services: Greater than 30 minutes - Constitutional Vitals: Temp Pulse Resp BP Pulse Ox 98.4 F 99 16 126/66 99 12/08/16 10:13 12/08/16 10:13 12/08/16 10:13 12/08/16 10:13 12/08/16 10:13 General appearance: Present: A&O X 3, no acute distress. Absent: answers questions appropriately Exam: Head Head exam: Present: atraumatic, normocephalic - Eye Eye exam: Present: PERRL, conjuntiva pink, sclera anicteric Pupils: Present: PERRL - Neck Neck exam general surgery: Present: supple, trachea midline. Absent: lymphadenopathy - Respiratory Respiratory exam: Present: b/l clear Absent: accessory muscle use, wheezes - Cardiovascular Cardiovascular exam: Present: RRR, +S1, +S2, systolic murmur. Absent: diastolic murmur, gallop, rubs - GI/Abdominal GI/Abdominal exam: Present: distended, normal bowel sounds, soft, no peritoneal signs. Absent: tenderness - Extremities Exam Extremities exam: Present: pedal edema (trace), warm, radial pulses palpable and symetrical. Absent: calf tenderness, cyanotic - Neurological Exam Neurological exam: Present: CN II-XII intact, no focal deficits. Absent: facial droop, speech deficit - Expanded Neurological Exam Patient oriented to: Present: person - Skin Skin exam: Present: dry, intact
[2016-12-08] MEDS ORDERED: Aminoglycoside Consult 1 EACH MC ONE (14:49)
== END 2016-12-08 14:50 | DRG 194 ==
LOC: 3ANU → SUATTDRO 20:55
PROVIDERS: ADMIT Internal Medicine; ATTEND Internal Medicine Endocrinology, Diabetes & Metabolism

== ENCOUNTER 2018-01-02 15:49 | Inpatient (IN) ==
[2018-01-02] MEDS ORDERED: *HR* FentaNYL (PF) 100 MCG/2 ML VIAL IVP ONE (16:49)
[2018-01-02] MEDS ORDERED: 0.9 % Sodium Chloride 1,000 ML IVC ONE (16:49)
--- NOTE | 2018-01-02 17:03 | Emergency Department Note ---
Disposition Clinical Impression: CKD (chronic kidney disease) stage 3, GFR 30-59 ml/min, Urinary retention Hematuria Qualifiers: Hematuria type: gross Qualified Code(s): R31.0 - Gross hematuria Disposition: Admitted As Inpatient Condition: Fair Referrals: Debi Richard [Primary Care Provider] - Forms: ED Satisfaction Letter Time of Disposition: 19:27 General Adult HPI - General Chief complaint: ED Urogenital-Male Stated complaint: blood in urine Time Seen by Provider: 01/02/18 16:35 Source: patient, family Mode of arrival: ambulatory Limitations: no limitations Nursing Notes Reviewed: Yes Vital Signs Reviewed: Yes - History of Present Illness HPI Narrative: 72-year-old male with history of right-sided nephrectomy due to renal cancer presents to the emergency department complaining of blood in the urine. He did have his right kidney removed in approximately 13 months ago. States had no problems since then. Said last 2 or 3 days he has noticed bright red blood in his urine. Said this is never happened to him before. He has had some generalized weakness but said that is mainly due to back pain that he is currently going through rehabilitation with. Patient states he is having mild abdominal pain mainly suprapubic nonradiating said that 6 out of 10 dull ache. Patient is having no other complaints including fevers, chills, nausea, vomiting , headaches, blurry vision, neck pain, back pain, changes in bowel movements, pain with urination, pain or tingling down the arms or legs. Pain Scale: 10 - Related Data Home Medications Medication Instructions Recorded Confirmed Allopurinol [Zyloprim] 300 mg PO DAILY 07/12/16 10/30/17 Aspirin [Lo-Dose Aspirin EC] 81 mg PO DAILY 11/05/16 10/30/17 Tamsulosin HCl [Flomax] 0.4 mg PO DAILY 11/05/16 10/30/17 Insulin Glargine,Hum.rec.anlog 40 unit SQ HS 03/11/17 10/30/17 [Lantus Solostar] Insulin ASPART [Novolog Flexpen] 20 unit SQ QPM 04/08/17 10/30/17 Insulin Glargine,Hum.rec.anlog 65 unit SQ QAM 07/08/17 10/30/17 [Lantus Solostar] Atenolol [Tenormin] 12.5 mg PO DAILY 10/30/17 10/30/17 Bumetanide 0.5 mg PO DAILY 10/30/17 10/30/17 Cholecalciferol (Vitamin D3) 50,000 unit PO QWEEK 10/30/17 10/30/17 [Vitamin D] Ferrous Sulfate [Iron] 325 mg PO DAILY 10/30/17 10/30/17 Allergies Allergy/AdvReac Type Severity Reaction Status Date / Time No Known Allergies Allergy Verified 10/30/17 08:43 Review of Systems: 10 point review of systems done and negative unless otherwise stated in the history of present illness. All systems ED: reviewed and negative except as stated. Review of Systems: As Per [facility] Past Medical History - Past Medical History Attestation: Yes The following information was validated with the patient. Source: patient Medical history: Reports: cancer, diabetes, hypertension, other Surgical history: Reports: cancer surgery Psychiatric history: Reports: no psych history - Social History Smoking Status: Former smoker Smokeless Tobacco Status: No Alcohol use: Reports: none Drug use: Reports: none Physical Exam - General Limitations: no limitations General appearance: alert, in no apparent distress - Head Head exam: atraumatic, normocephalic, normal inspection - Eye Eye exam: Present: normal appearance, PERRL, EOMI - ENT ENT exam: normal exam, normal oropharynx, mucous membranes moist - Neck Neck exam: Present: normal inspection, full ROM, trachea midline - Chest Chest inspection: Present: normal inspection, symmetric chest wall rise - Respiratory Respiratory exam: Present: normal lung sounds bilaterally. Absent: respiratory distress, wheezes, accessory muscle use - Cardiovascular Cardiovascular exam: Present: regular rate, normal rhythm, normal heart sounds - Abdominal Exam Abdominal exam: Present: soft, Non-Tender, tenderness, normal bowel sounds. Absent: distention, guarding, rebound, rigidity, Huynh's sign, Rovsing's sign, tenderness at McBurney's Point, mass, bruit Abdominal tenderness: Present: suprapubic, mild - Extremities Exam Extremities exam: Present: normal inspection, full ROM. Absent: tenderness, pedal edema - Expanded Lower Extremity Exam Neurovascular/Tendon exam: Present: normal capillary refill. Absent: pulse deficit, motor deficit, sensory deficit, tendon deficit - Back Exam Back exam: Present: normal inspection, full ROM. Absent: tenderness, CVA tenderness (R), CVA tenderness (L) - Neurological Exam Neurological exam: Present: alert, oriented X3 - Skin Skin exam: Present: warm, dry, intact, normal color Course Course Narrative: 72-year-old male presented to the emergency department complaining of blood in the urine. We will get urinalysis, basic labs including CBC, CMP as well as coags. We will also do CT abdomen and pelvis without contrast. We will give IV fluids as well as fentanyl for pain control. Disposition pending results - Reevaluation(s) Reevaluation #1: Patient was finally able to urinate but it was Alejandro gross blood so we did not do a bladder scan this time. We will try and place a 20-Kazakh Perkins catheter so we can irrigate well. Plan on admitting patient due to elevated creatinine. This all based on his hydronephrosis and hydroureter seen on CT. Time: 18:40 - Consultations Consultation #1: Spoke with the on-call urologist Dr. Pretty who recommended we place a 20- Kazakh to a catheter in and do an irrigation until the clot is removed. He also recommended admission due to patient only having one kidney and a bump in his creatinine. Time: 18:56 Vital Signs Temperature 98.2 F 01/02/18 16:15 Pulse Rate 81 01/02/18 16:15 Respiratory Rate 16 01/02/18 16:15 Blood Pressure 103/53 01/02/18 16:15 O2 Sat by Pulse Oximetry 99 01/02/18 16:15 Temperature 98.2 F 01/02/18 16:15 Pulse Rate 62 01/02/18 19:18 Respiratory Rate 16 01/02/18 19:18 Blood Pressure 114/54 01/02/18 19:18 O2 Sat by Pulse Oximetry 98 01/02/18 19:18 Oxygen Delivery Oxygen Delivery Room Air Medical Decision Making - [facility] Narrative Medical decision making narrative: 72-year-old male presented to the emergency department complaining of hematuria. He does have renal cell carcinoma of his right kidney which was removed said no problems since then. He has had a TURP done in the past for hypertrophy of the prostate. I did speak with urology as he had most likely bladder obstruction for a Perkins placement to have it then flushed but we tried with both and 18 and 20-Kazakh to a catheter and runny unable to pass it. I think I will urologist back who said that he would come and see the patient. Due to patient having one kidney having hydroureter and hydronephrosis recommended admission due to elevated creatinine. I spoke with the hospitalist Dr. Bridges who agreed to admit the patient to their service. Patient's urine did show positive nitrites but no bacteria so we will treat him prophylactically with Rocephin here in the emergency department. All other labs were normal. Patient does not take any blood thinners. Patient is admitted in stable condition. Abdomen/Pelvis CT 01/02/18 16:48 IMPRESSION: Markedly distended bladder concerning for bladder outlet obstruction. There is a small amount of soft tissue layering in the gravity dependent portion of the bladder, which could represent hemorrhagic material. Underlying lesion/mass cannot be excluded. Consider direct visualization or cystoscopy. There is associated mild left hydroureter and hydronephrosis. A 10 mm left renal cyst is slightly more dense on this examination and likely represents a hyperdense cyst with proteinaceous material. Postsurgical change of prior right nephrectomy. Cirrhosis. D/ / 01/02/2018 17:50:25 Jose Elias Stern MD / [facility] Interpreting Provider: Jose Elias Stern MD - Medical Records Medical records reviewed: Yes I reviewed the patient's medical records. - Lab Data Lab results reviewed: Yes I reviewed the patient's lab results. Result diagrams: 01/02/18 16:58 01/02/18 16:58 Lab Results 01/02/18 01/02/18 01/02/18 Range/Units 16:58 16:58 16:58 WBC 9.4 (4.3-11.1) K/mcL RBC 3.93 L (4.19-5.50) M/mcL Hgb 11.9 L (12.9-16.9) g/dL Hct 36.5 L (37.5-50.1) % MCV 92.9 (83.0-100.0) fL MCH 30.3 (28.0-33.3) pg MCHC 32.6 (31.6-35.5) g/dL RDW 13.8 (11.5-14.5) % Plt Count 121 L (140-400) K/mcL MPV 11.8 (9.4-12.4) fL Immature Gran % 0.4 (0-4) % Seg Neutrophils % 74.4 % Lymphocytes % 15.2 % Monocytes % 7.8 % Eosinophils % 1.6 % Basophils % 0.6 % Neutrophils # 7.0 (1.6-8.9) K/mcL Lymphocytes # 1.4 (0.6-4.6) K/mcL Monocytes # 0.7 (0.0-1.3) K/mcL Eosinophils # 0.2 (0.0-0.6) K/mcL Basophils # 0.1 (0.0-0.2) K/mcL PT 12.5 H (9.4-12.1) Seconds INR 1.2 APTT 31.1 (26.0-36.0) Seconds Sodium 137 (136-145) mEq/L Potassium 4.4 (3.5-5.1) mEq/L Chloride 107 (98-107) mEq/L Carbon Dioxide 24 (23-29) mEq/L BUN 39 H (8-23) mg/dL Creatinine 2.21 H (0.70-1.30) mg/dL Est GFR ( Amer) 36 L (> 60) Est GFR (Non-Af Amer) 30 L (> 60) BUN/Creatinine Ratio 18 (6-26) Glucose 179 H (70-105) mg/dL Calculated Osmolality 298 (280-300) Calcium 9.4 (8.6-10.3) mg/dL Total Bilirubin 0.5 (0.3-1.0) mg/dL AST 22 (13-39) Units/L ALT 17 (7-52) Units/L Alkaline Phosphatase 99 (34-104) Units/L Serum Total Protein 7.1 (6.4-8.9) g/dL Albumin 3.9 (3.5-5.7) g/dL Globulin 3.2 (2.4-3.5) g/dL Albumin/Globulin Ratio 1.2 (1.1-2.2) Ur Specimen Adequacy Urine Color (Yellow) Urine Clarity (Clear) Urine pH (5.0-8.0) pH Units Ur Specific [place] (1.010-1.025) Urine Protein (Neg-Trace) mg/dL Urine Glucose (UA) (Normal) mg/dL Urine Ketones (Negative) mg/dL Urine Blood (Negative) Urine Nitrite (Negative) Urine Bilirubin (Negative) Urine Urobilinogen (Normal) mg/dL Ur Leukocyte Esterase (Negative) Ur Culture Indicated? (NO) 01/02/18 Range/Units 18:39 WBC (4.3-11.1) K/mcL RBC (4.19-5.50) M/mcL Hgb (12.9-16.9) g/dL Hct (37.5-50.1) % MCV (83.0-100.0) fL MCH (28.0-33.3) pg MCHC (31.6-35.5) g/dL RDW (11.5-14.5) % Plt Count (140-400) K/mcL MPV (9.4-12.4) fL Immature Gran % (0-4) % Seg Neutrophils % % Lymphocytes % % Monocytes % % Eosinophils % % Basophils % % Neutrophils # (1.6-8.9) K/mcL Lymphocytes # (0.6-4.6) K/mcL Monocytes # (0.0-1.3) K/mcL Eosinophils # (0.0-0.6) K/mcL Basophils # (0.0-0.2) K/mcL PT (9.4-12.1) Seconds INR APTT (26.0-36.0) Seconds Sodium (136-145) mEq/L Potassium (3.5-5.1) mEq/L Chloride (98-107) mEq/L Carbon Dioxide (23-29) mEq/L BUN (8-23) mg/dL Creatinine (0.70-1.30) mg/dL Est GFR ( Amer) (> 60) Est GFR (Non-Af Amer) (> 60) BUN/Creatinine Ratio (6-26) Glucose (70-105) mg/dL Calculated Osmolality (280-300) Calcium (8.6-10.3) mg/dL Total Bilirubin (0.3-1.0) mg/dL AST (13-39) Units/L ALT (7-52) Units/L Alkaline Phosphatase (34-104) Units/L Serum Total Protein (6.4-8.9) g/dL Albumin (3.5-5.7) g/dL Globulin (2.4-3.5) g/dL Albumin/Globulin Ratio (1.1-2.2) Ur Specimen Adequacy See below A Urine Color Red A (Yellow) Urine Clarity Cloudy A (Clear) Urine pH 6.0 (5.0-8.0) pH Units Ur Specific [place] 1.021 (1.010-1.025) Urine Protein >=300 H (Neg-Trace) mg/dL Urine Glucose (UA) Normal (Normal) mg/dL Urine Ketones Trace H (Negative) mg/dL Urine Blood Large H (Negative) Urine Nitrite Positive A (Negative) Urine Bilirubin Moderate H (Negative) Urine Urobilinogen Normal (Normal) mg/dL Ur Leukocyte Esterase Moderate H (Negative) Ur Culture Indicated? YES A (NO)
--- NOTE | 2018-01-02 17:08 | Emergency Department Note ---
START Narrative - START START: I examined this patient and my medical decision-making was reviewed with the Resident Physician. I agree with the documented findings, disposition and treatment plan as described except to the extent set forth below. 72-year-old male presented to the emergency room for hematuria. Patient has a history of a previous nephrectomy secondary to renal cancer. He states he did not have to have any chemotherapy done. He denies any blood thinners. States he is having some suprapubic pain and pressure that radiates to his back. He does admit to the hematuria since this morning. No other complaints at this time. No blood in his stool. No gum bleeding. We will do labs as well as a CT scan and urinalysis.
[2018-01-02 17:21] LABS: Basophils # 0.1 K/mcL (0.0-0.2); Basophils % 0.6 %; Eosinophils # 0.2 K/mcL (0.0-0.6); Eosinophils % 1.6 %; Hematocrit 36.5 % (37.5-50.1); Hemoglobin 11.9 g/dL (12.9-16.9); Immature Granulocytes % 0.4 % (0-4); Lymphocytes # 1.4 K/mcL (0.6-4.6); Lymphocytes % 15.2 %; Mean Corpuscular HGB Conc 32.6 g/dL (31.6-35.5); Mean Corpuscular Hemoglobin 30.3 pg (28.0-33.3); Mean Corpuscular Volume 92.9 fL (83.0-100.0); Mean Platelet Volume 11.8 fL (9.4-12.4); Monocytes # 0.7 K/mcL (0.0-1.3); Monocytes % 7.8 %; Platelet Count 121 K/mcL (140-400); Red Blood Count 3.93 M/mcL (4.19-5.50); Red Cell Distribution Width 13.8 % (11.5-14.5); Segmented Neutrophils % 74.4 %
[2018-01-02 17:26] LABS: INR 1.2; Prothrombin Time 12.5 Seconds (9.4-12.1)
[2018-01-02 17:29] LABS: Activated Partial Thrombo Time 31.1 Seconds (26.0-36.0)
[2018-01-02 17:42] LABS: Albumin 3.9 g/dL (3.5-5.7); Albumin/Globulin Ratio 1.2 (1.1-2.2); Bilirubin,Total 0.5 mg/dL (0.3-1.0); Calcium 9.4 mg/dL (8.6-10.3); Globulin 3.2 g/dL (2.4-3.5); Potassium 4.4 mEq/L (3.5-5.1); Total Protein 7.1 g/dL (6.4-8.9)
[2018-01-02 19:04] LABS: Bilirubin,Urine Moderate (Negative); Blood,Urine Large (Negative); Clarity,Urine Cloudy (Clear); Color,Urine Red (Yellow); Glucose,Urine (UA) Normal (Normal); Ketones,Urine Trace mg/dL (Negative); Leukocyte Esterase,Urine Moderate (Negative); Nitrite,Urine Positive (Negative); Protein,Urine >=300 mg/dL (Neg-Trace); Specific Gravity,Urine 1.021 (1.010-1.025); Urobilinogen,Urine Normal (Normal)
[2018-01-02] MEDS ORDERED: cefTRIAXone 1,000 MG in Water for inj. (sterile) 20 ML 10 ML IVP ONE (19:25)
[2018-01-02] MEDS ORDERED: *HR* Nalbuphine 20 MG/ML AMPUL IVP ONE (20:05)
[2018-01-02] MEDS ORDERED: *HR* Nalbuphine 10 MG/ML AMPUL IVP ONE (20:15)
[2018-01-02] MEDS ORDERED: Naloxone 0.4 MG/ML INJ IVP PRN (21:28)
[2018-01-02] MEDS ORDERED: Ondansetron 4 MG/2 ML VIAL IVP PRN (21:28)
[2018-01-02] MEDS ORDERED: *HR* Promethazine 25 MG/ML VIAL IVP PRN (21:28)
[2018-01-02] MEDS ORDERED: D5% in Water 1,000 ML IVC PRN (21:36)
[2018-01-02] MEDS ORDERED: *HR* Dextrose 50 % in Water (Syg) 50 ML SYRINGE IVP PRN (21:36)
[2018-01-02] MEDS ORDERED: Dextrose Gel 15 GM/37.5 ML TUBE PO PRN ×2 (21:36)
--- NOTE | 2018-01-02 21:43 | Internal Med History&Physical ---
Date of Encounter: 01/02/18 Time of Encounter: 20:15 Internal Medicine - H&P: HPI Chief complaint: Hematuria Admitted From: Emergency Dept Plans for Post Hospital Care: Home History of present illness: Mr. Olivera is a 72 year old male with known past medical history of HTN, DM2, Renal cell cancer s/p right-sided nephrectomy pt presented to the emergency department complaining of blood in the urine. He did have his right kidney removed in approximately 13 months ago. States had no problems since then. Said last 2 or 3 days he has noticed bright red blood in his urine. He does c/ o generalized weakness and mild low back pain. He does have mild supra pubic pain. He denied any fever / chills. Denied any urinary retention Past Med Surg Social Fam HX - Past Medical History Medical history: cancer, diabetes, hypertension, other Psychiatric history: no psych history - Past Surgical History Surgical History: cancer surgery - Social History Smoking Status: Former smoker Smokeless Tobacco Status: No Alcohol use: none Drug use: none - Additional Family History Additional family history: Family hsitory reviewed and non contribuitory to current problem. Internal Medicine - H&P: Meds Allopurinol [Zyloprim] 300 mg PO DAILY 07/12/16 [History] Aspirin [Lo-Dose Aspirin EC] 81 mg PO DAILY 11/05/16 [History] Tamsulosin HCl [Flomax] 0.4 mg PO DAILY 11/05/16 [History] Insulin Glargine,Hum.rec.anlog [Lantus Solostar] 40 unit SQ HS 03/11/17 [History ] Insulin ASPART [Novolog Flexpen] 20 unit SQ QPM 04/08/17 [History] Insulin Glargine,Hum.rec.anlog [Lantus Solostar] 64 unit SQ QAM 07/08/17 [ History] Atenolol [Tenormin] 12.5 mg PO DAILY 10/30/17 [History] Bumetanide 0.5 mg PO DAILY 10/30/17 [History] Cholecalciferol (Vitamin D3) [Vitamin D] 50,000 unit PO TU 10/30/17 [History] Ferrous Sulfate [Iron] 325 mg PO DAILY 10/30/17 [History] 3 Allergy/AdvReac Type Severity Reaction Status Date / Time No Known Allergies Allergy Verified 10/30/17 08:43 All Systems PM: A 10-system review of systems was performed and is negative for pertinent findings except as documented above in the HPI. Review of systems: All the systems are reviewed everything is benign except the systems and symptoms I mentioned in the history of present illness - Constitutional Vitals: Temp Pulse Resp BP Pulse Ox 98.2 F 62 16 130/70 98 01/02/18 16:15 01/02/18 20:49 01/02/18 19:18 01/02/18 20:49 01/02/18 19:18 General appearance: Present: A&O X 3, no acute distress, answers questions appropriately - Head Head exam: Present: atraumatic, normal inspection - Neck Neck exam general surgery: Present: supple - Respiratory Respiratory exam: Present: decreased breath sounds. Absent: rales, respiratory distress, rhonchi, wheezes - Cardiovascular Cardiovascular exam: Present: RRR, +S1, +S2. Absent: tachycardia - GI/Abdominal GI/Abdominal exam: Present: normal bowel sounds, soft. Absent: rebound, rigid, tenderness - Extremities Exam Extremities exam: Absent: calf tenderness, pedal edema, tenderness - Back Exam Back exam: Present: paraspinal tenderness (mild). Absent: CVA tenderness (L), CVA tenderness (R) - Neurological Exam Neurological exam: Present: alert, oriented X3 - Psychiatric Psychiatric exam: Present: normal affect, normal mood - Skin Skin exam: Absent: rash Internal Med - H&P Results - Labs CBC & Chem 7: 01/02/18 16:58 01/02/18 16:58 - Assessment and plan (1) Hematuria Current Visit: Yes Status: Acute Assessment and plan: Admit the pt into Med Surg So far stable Hb @ 11.9 Cont close monitoring of H/H Held ASA Avoid any anti coag / Anti platelets Reviewed CT of Abd / Pelvis showed markedly distended bladder concerning for outlet obstruction He urinated well now.. Urologist planning on placing a russell Need bladder irrigation Urology consulted Qualifiers: Hematuria type: gross Qualified Code(s): R31.0 - Gross hematuria (2) UTI (urinary tract infection) Current Visit: Yes Status: Acute Assessment and plan: Reviewed UA - positive for WBC, Nitrite and bacteria started him on empirical abx Rocephin Qualifiers: Urinary tract infection type: acute cystitis Hematuria presence: with hematuria Qualified Code(s): N30.01 - Acute cystitis with hematuria (3) Acute kidney injury Current Visit: No Status: Acute Assessment and plan: Slightly elevated Cr than baseline he does have CKD-3 avoid nephro toxic meds Urinary retention noticed Urology consulted (4) Renal cell carcinoma Current Visit: Yes Status: Chronic Qualifiers: Laterality: right Qualified Code(s): C64.1 - Malignant neoplasm of right kidney, except renal pelvis (5) Type 2 diabetes mellitus Current Visit: No Status: Chronic Assessment and plan: on ISS + Levemir 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 Diabetes mellitus complication status: without complication Qualified Code(s): E11.9 - Type 2 diabetes mellitus without complications; Z79.4 - middle or intermediate school principal (current) use of insulin (6) CKD (chronic kidney disease) stage 3, GFR 30-59 ml/min Current Visit: Yes Status: Chronic (7) Thrombocytopenia Current Visit: No Status: Chronic Assessment and plan: chronic thrombocytopenia noticed unclear etiology stable platelets @ 120 - Time Spent With Patient Total time spent is greater than 50% in coordination of care (as documented) at patient's floor/unit and/or counseling patient:
[2018-01-02 21:58] LABS: Hemoglobin 11.2 g/dL (12.9-16.9)
[2018-01-02] MEDS: Insulin DETEMIR 100 UNIT/ML X5UNITS SQ SCH (22:18)
--- NOTE | 2018-01-03 00:30 | Urology - Consult Note ---
Date of Encounter: 01/03/18 Time of Encounter: 00:27 - Assessment and Plan (1) Hematuria Current Visit: Yes Status: Acute Assessment and plan: I was able to pass a 16-Georgian Perkins catheter after dilating his urethra. The catheter did irrigate to a light pink color. We will see how the hematuria does with drainage. It may be more challenging to place a large bore 3-way catheter given his stricture disease. Qualifiers: Hematuria type: gross Qualified Code(s): R31.0 - Gross hematuria (2) UTI (urinary tract infection) Current Visit: Yes Status: Acute Assessment and plan: There is concern for urinary tract infection. He has been given IV antibiotic. We will await results from his urine culture. Qualifiers: Urinary tract infection type: acute cystitis Hematuria presence: with hematuria Qualified Code(s): N30.01 - Acute cystitis with hematuria (3) Urinary retention Current Visit: Yes Status: Acute Assessment and plan: I was able to pass a catheter. We will need to maintain his Perkins through his hospital stay. Urology CN:[email or web address] Consult date: 01/03/18 Reason for consult Urology: Difficult Perkins History of present illness: 72-year-old man who is well-known to the urology service status post right nephrectomy returns with a history of gross hematuria. He had a CT scan which showed a distended bladder and some layering debris at the trigone. The bleeding started this morning. He had some slowing of his stream. He feels that he is not emptying adequately. The urine was maroon colored. He came to the emergency department. Attempts were made at placing a catheter but they were unsuccessful. He was then admitted to the hospital. Past Med Surg Social Fam HX - Past Medical History Medical history: cancer, diabetes, hypertension, other Psychiatric history: no psych history - Past Surgical History Surgical History: cancer surgery - Social History Smoking Status: Former smoker Smokeless Tobacco Status: Yes (Snuff) Alcohol use: none Drug use: none Medications and Allergies Allopurinol [Zyloprim] 300 mg PO DAILY 07/12/16 [History] Aspirin [Lo-Dose Aspirin EC] 81 mg PO DAILY 11/05/16 [History] Tamsulosin HCl [Flomax] 0.4 mg PO DAILY 11/05/16 [History] Insulin Glargine,Hum.rec.anlog [Lantus Solostar] 40 unit SQ HS 03/11/17 [History ] Insulin ASPART [Novolog Flexpen] 20 unit SQ QPM 04/08/17 [History] Insulin Glargine,Hum.rec.anlog [Lantus Solostar] 64 unit SQ QAM 07/08/17 [ History] Atenolol [Tenormin] 12.5 mg PO DAILY 10/30/17 [History] Bumetanide 0.5 mg PO DAILY 10/30/17 [History] Cholecalciferol (Vitamin D3) [Vitamin D] 50,000 unit PO TU 10/30/17 [History] Ferrous Sulfate [Iron] 325 mg PO DAILY 10/30/17 [History] 3 Allergy/AdvReac Type Severity Reaction Status Date / Time No Known Allergies Allergy Verified 10/30/17 08:43 Review of Systems - Constitutional no chills, no fever(s) - EENT Nose, mouth and throat: no dizziness - Cardiovascular no chest pain - Respiratory no dyspnea - Gastrointestinal no nausea, no vomiting - Genitourinary difficulty urinating, hematuria, no flank pain - Musculoskeletal no back pain - Integumentary no erythema, no rash - Neurological no weakness - Psychiatric no suicidal ideation - Hematologic/Lymphatic no easy bleeding - Allergic/Immunologic no wheezing Exam Initial Vital Signs Temp Pulse Resp BP Pulse Ox 98.2 F 81 16 103/53 99 01/02/18 16:15 01/02/18 16:15 01/02/18 16:15 01/02/18 16:15 01/02/18 16:15 - General physical appearance Present: well developed, well nourished, no distress - Eyes Absent: icteric - ENT Present: normal nares - Neck Present: trachea midline - Respiratory Present: normal respiratory effort - Cardiovascular Cardiovascular exam IM: RRR - Abdomen Abdomen: Present: soft - Genitourinary normal penis with no external lesions, testicles non-tender Penis: Present: edema Urethral meatis: Present: patent, orthotopic Testicles: Present: normal size - Integumentary Present: no rash - Neurologic Present: normal coordination - Musculoskeletal Present: other (No edema) Urology Results - Labs 01/02/18 21:49 01/02/18 16:58 Abnormal lab results RBC 3.93 M/mcL (4.19-5.50) L 01/02/18 16:58 Hgb 11.2 g/dL (12.9-16.9) L 01/02/18 21:49 Hct 34.0 % (37.5-50.1) L 01/02/18 21:49 Plt Count 121 K/mcL (140-400) L 01/02/18 16:58 PT 12.5 Seconds (9.4-12.1) H 01/02/18 16:58 BUN 39 mg/dL (8-23) H 01/02/18 16:58 Creatinine 2.21 mg/dL (0.70-1.30) H 01/02/18 16:58 Est GFR ( Amer) 36 (> 60) L 01/02/18 16:58 Est GFR (Non-Af Amer) 30 (> 60) L 01/02/18 16:58 Glucose 179 mg/dL (70-105) H 01/02/18 16:58 Ur Specimen Adequacy See below A 01/02/18 18:39 Urine Color Red (Yellow) A 01/02/18 18:39 Urine Clarity Cloudy (Clear) A 01/02/18 18:39 Urine Protein >=300 mg/dL (Neg-Trace) H 01/02/18 18:39 Urine Ketones Trace mg/dL (Negative) H 01/02/18 18:39 Urine Blood Large (Negative) H 01/02/18 18:39 Urine Nitrite Positive (Negative) A 01/02/18 18:39 Urine Bilirubin Moderate (Negative) H 01/02/18 18:39 Ur Leukocyte Esterase Moderate (Negative) H 01/02/18 18:39 Ur Culture Indicated? YES (NO) A 01/02/18 18:39 All other labs normal. - Imaging CT scan - abdomen: report reviewed, image reviewed CT scan - pelvis: report reviewed, image reviewed Procedures:Urology - Catheter Insertion (Urinary) Additional comments: Under sterile conditions I attempted to place a catheter. I first passed a wire down his urethra. He voiced the sensation of feeling the wire in his bladder. I attempted to pass a 16-Georgian catheter over the wire, but resistance was met within the penile urethra. The catheter was removed and I sequentially dilated the urethra to 18-Georgian. I was unable to pass a 16- Georgian Perkins catheter in the bladder. 10 mL was instilled the balloon. Approximately 1 L of maroon colored urine drained from the bladder. I then irrigated the catheter and it was fairly clear without any significant clot. The catheter was left to dependent drainage. Consult Discharge Plan - Plan Referrals: Debi Richard [Primary Care Provider] -
[2018-01-03] MEDS: Acetaminophen 325 MG TABLET PO PRN (05:47)
[2018-01-03 06:17] LABS: Red Cell Distribution Width 14.1 % (11.5-14.5)
[2018-01-03 06:19] LABS: Basophils % 0.3 %; Eosinophils # 0.1 K/mcL (0.0-0.6); Eosinophils % 0.8 %; Hematocrit 31.4 % (37.5-50.1); Hemoglobin 10.3 g/dL (12.9-16.9); Immature Granulocytes % 0.2 % (0-4); Immature Platelets 4.7 % (1.1-6.1); Lymphocytes # 0.7 K/mcL (0.6-4.6); Lymphocytes % 8.1 %; Mean Corpuscular HGB Conc 32.8 g/dL (31.6-35.5); Mean Corpuscular Hemoglobin 30.2 pg (28.0-33.3); Mean Corpuscular Volume 92.1 fL (83.0-100.0); Mean Platelet Volume 11.9 fL (9.4-12.4); Monocytes # 0.9 K/mcL (0.0-1.3); Monocytes % 10.8 %; Red Blood Count 3.41 M/mcL (4.19-5.50); Segmented Neutrophils % 79.8 %
[2018-01-03 06:21] LABS: Neutrophils # 6.9 K/mcL (1.6-8.9); Platelet Count 83 K/mcL (140-400)
[2018-01-03 06:35] LABS: Calcium 8.8 mg/dL (8.6-10.3); Magnesium 1.7 mg/dL (1.6-2.6); Potassium 4.1 mEq/L (3.5-5.1)
[2018-01-03] MEDS: Insulin LISPRO 300 UNITS/3 ML VIAL SQ SCH ×4 (08:01→20:42)
[2018-01-03] MEDS: cefTRIAXone 1,000 MG in Water for inj. (sterile) 20 ML 10 ML IVP SCH (08:06)
--- NOTE | 2018-01-03 09:57 | Urology Progress Note ---
Date of Encounter: 01/03/18 Time of Encounter: 09:56 - Assessment and Plan (1) Hematuria Current Visit: Yes Status: Acute Assessment and plan: 72-year-old man with gross hematuria and urinary tract infection. Continue Perkins catheter. He will need to follow-up as an outpatient for catheter removal. Continue IV antibiotic for UTI and await urine culture results. Qualifiers: Hematuria type: gross Qualified Code(s): R31.0 - Gross hematuria (2) UTI (urinary tract infection) Current Visit: Yes Status: Acute Qualifiers: Urinary tract infection type: acute cystitis Hematuria presence: with hematuria Qualified Code(s): N30.01 - Acute cystitis with hematuria (3) Urinary retention Current Visit: Yes Status: Acute Progress Note Narrative: Doing well this morning. Urine is clearing. Objective Initial Vital Signs Temp Pulse Resp BP Pulse Ox 98.2 F 81 16 103/53 99 01/02/18 16:15 01/02/18 16:15 01/02/18 16:15 01/02/18 16:15 01/02/18 16:15 - General physical appearance Present: well developed, well nourished, no distress - Respiratory Present: normal respiratory effort - Abdomen Present: soft - Genitourinary Present: other (Catheter in place. Urine is tea colored.) - Labs 01/03/18 05:45 01/03/18 05:45 Diabetes panel 01/03/18 Range/Units 05:45 Sodium 139 (136-145) mEq/L Potassium 4.1 (3.5-5.1) mEq/L Chloride 112 H (98-107) mEq/L Carbon Dioxide 21 L (23-29) mEq/L BUN 39 H (8-23) mg/dL Creatinine 2.03 H (0.70-1.30) mg/dL Glucose 81 (70-105) mg/dL Calcium 8.8 (8.6-10.3) mg/dL Calcium panel 01/03/18 Range/Units 05:45 Calcium 8.8 (8.6-10.3) mg/dL Pituitary panel 01/03/18 Range/Units 05:45 Sodium 139 (136-145) mEq/L Potassium 4.1 (3.5-5.1) mEq/L Chloride 112 H (98-107) mEq/L Carbon Dioxide 21 L (23-29) mEq/L BUN 39 H (8-23) mg/dL Creatinine 2.03 H (0.70-1.30) mg/dL Glucose 81 (70-105) mg/dL Calcium 8.8 (8.6-10.3) mg/dL Adrenal panel 01/03/18 Range/Units 05:45 Sodium 139 (136-145) mEq/L Potassium 4.1 (3.5-5.1) mEq/L Chloride 112 H (98-107) mEq/L Carbon Dioxide 21 L (23-29) mEq/L BUN 39 H (8-23) mg/dL Creatinine 2.03 H (0.70-1.30) mg/dL Glucose 81 (70-105) mg/dL Calcium 8.8 (8.6-10.3) mg/dL - VTE Documentation of Mechanical Device: Intermittent pneumatic compression device Consult Discharge Plan - Plan Referrals: Debi Richard [Primary Care Provider] -
[2018-01-03] MEDS ORDERED: 0.9 % Sodium Chloride 500 ML IVC ONE (12:22)
--- NOTE | 2018-01-03 12:23 | Internal Med Progress Note ---
Date of Encounter: 01/03/18 Time of Encounter: 12:20 - Assessment and plan (1) Sepsis Current Visit: Yes Status: Acute Assessment and plan: NOw septic with T max 101.4, tachycardia, UTI Lactate is WNL Blood pressure is WNL Give additional bolus for CHRIS Blood culture sent today 01/03 urine culture sent 01/02, pending Continue ceftriaxone MOnitor closely Qualifiers: Sepsis type: sepsis due to unspecified organism Qualified Code(s): A41.9 - Sepsis, unspecified organism (2) Acute kidney injury Current Visit: Yes Status: Acute Assessment and plan: CHRIS on CKD Post-renal due to urinary retention Improving slowly Give additional bolus Per urology needs to eb discharged home on Perkins Avoid nephrotoxins MOnitor closely (3) Renal cell carcinoma Current Visit: Yes Status: Chronic Assessment and plan: chronic stable Qualifiers: Laterality: right Qualified Code(s): C64.1 - Malignant neoplasm of right kidney, except renal pelvis (4) Type 2 diabetes mellitus Current Visit: Yes Status: Chronic Assessment and plan: on ISS + Levemir, continue same FS acceptable ADA diet Qualifiers: Diabetes mellitus skilled nursing insulin use: with skilled nursing use Diabetes mellitus complication status: without complication Qualified Code(s): E11.9 - Type 2 diabetes mellitus without complications; Z79.4 - terminal superintendent (current) use of insulin (5) CKD (chronic kidney disease) stage 3, GFR 30-59 ml/min Current Visit: Yes Status: Chronic Assessment and plan: See CHRIS (6) Thrombocytopenia Current Visit: Yes Status: Chronic Assessment and plan: chronic thrombocytopenia noticed PLT this a.m 83 Possibly due to hemodilution as well as consumption from sepsis No bleeding Continue to monitor (7) Hematuria Current Visit: Yes Status: Resolved Assessment and plan: HB slighlt less to 10.3 following Urine is clear now Continue IVF MOnitor closley PEr , needs to be discharged on Perkins Qualifiers: Hematuria type: gross Qualified Code(s): R31.0 - Gross hematuria (8) UTI (urinary tract infection) Current Visit: Yes Status: Acute Assessment and plan: Contnue ceftriaxone Follow final urine culture Qualifiers: Urinary tract infection type: acute cystitis Hematuria presence: with hematuria Qualified Code(s): N30.01 - Acute cystitis with hematuria - Time Spent With Patient Total time spent is greater than 50% in coordination of care (as documented) at patient's floor/unit and/or counseling patient: - Subjective Interval history: Seen and evaluated at bedside 72 M with PMH of CKD III, HTN, DM, s/p R nephrectomy He is admitted and being managed for CHRIS on CKD, Urinary retention, Sepsis secondary to UTI He is being followed by urology He continues to have fever Lactic acid done this morning was WNL Blood pressure is WNL CHRIS is improving Urine is clear now. Urine culture has been sent and pending Blood culture has been sent and pending - Constitutional Vitals: Temp Pulse Resp BP Pulse Ox 99.4 F 85 18 128/57 97 01/03/18 11:20 01/03/18 11:20 01/03/18 11:20 01/03/18 11:20 01/03/18 11:20 General appearance: Present: A&O X 3, no acute distress, answers questions appropriately - Head Head exam: Present: atraumatic, normocephalic - Eye Eye exam: Present: PERRL, conjuntiva pink, sclera anicteric Pupils: Present: PERRL - Neck Neck exam general surgery: Present: supple, trachea midline. Absent: lymphadenopathy - Respiratory Respiratory exam: Present: CTAB. Absent: accessory muscle use, rales, rhonchi, wheezes - Cardiovascular Cardiovascular exam: Present: RRR, +S1, +S2. Absent: diastolic murmur, gallop, rubs, systolic murmur - GI/Abdominal GI/Abdominal exam: Present: normal bowel sounds, soft, no peritoneal signs. Absent: distended, tenderness - Additional comments: Perkins draining clear urine - Extremities Exam Extremities exam: Present: warm, radial pulses palpable and symmetrical. Absent : calf tenderness, cyanotic, pedal edema - Neurological Exam Neurological exam: Present: alert, CN II-XII intact, oriented X3, no focal deficits. Absent: pronater drift, facial droop, speech deficit - Skin Skin exam: Present: dry, intact Internal Medicine: Result - Labs CBC & Chem 7: 01/03/18 05:45 01/03/18 05:45 Labs: Short CBC 01/02/18 01/03/18 Range/Units 21:49 05:45 WBC 8.6 (4.3-11.1) K/mcL Hgb 11.2 L 10.3 L (12.9-16.9) g/dL Hct 34.0 L 31.4 L (37.5-50.1) % Plt Count 83 L (140-400) K/mcL Neutrophils # 6.9 (1.6-8.9) K/mcL BMP 01/03/18 05:45 Sodium 139 Potassium 4.1 Chloride 112 H Carbon Dioxide 21 L BUN 39 H Creatinine 2.03 H Glucose 81 Calcium 8.8 - ABG Interpretation ABG results: PT/INR, D-dimer PT 12.5 Seconds (9.4-12.1) H 01/02/18 16:58 - VTE Documentation of Mechanical Device: Intermittent pneumatic compression device Consult Discharge Plan - Plan Referrals: Debi Richard [Primary Care Provider] -
[2018-01-03] MEDS: *HR* HYDROcodone/Acet 5/325 mg TABLET PO PRN (20:41)
[2018-01-03] MEDS: Insulin DETEMIR 100 UNIT/ML X5UNITS SQ SCH (20:42)
[2018-01-04] MEDS: Acetaminophen 325 MG TABLET PO PRN ×2 (00:16→23:44)
[2018-01-04 06:51] LABS: Red Cell Distribution Width 13.8 % (11.5-14.5)
[2018-01-04 06:53] LABS: Basophils % 0.7 %; Eosinophils # 0.2 K/mcL (0.0-0.6); Eosinophils % 3.4 %; Hematocrit 30.6 % (37.5-50.1); Hemoglobin 10.2 g/dL (12.9-16.9); Immature Granulocytes % 0.2 % (0-4); Immature Platelets 2.9 % (1.1-6.1); Lymphocytes # 0.9 K/mcL (0.6-4.6); Lymphocytes % 20.8 %; Mean Corpuscular HGB Conc 33.3 g/dL (31.6-35.5); Mean Corpuscular Hemoglobin 31.2 pg (28.0-33.3); Mean Corpuscular Volume 93.6 fL (83.0-100.0); Monocytes # 0.6 K/mcL (0.0-1.3); Monocytes % 14.6 %; Nucleated Red Blood Cells 0.9 /100 WBC (0); Red Blood Count 3.27 M/mcL (4.19-5.50); Segmented Neutrophils % 60.3 %
[2018-01-04 07:01] LABS: Calcium 8.6 mg/dL (8.6-10.3); Potassium 4.2 mEq/L (3.5-5.1)
[2018-01-04 07:05] LABS: Neutrophils # 2.7 K/mcL (1.6-8.9); Platelet Count 73 K/mcL (140-400)
[2018-01-04] MEDS: cefTRIAXone 1,000 MG in Water for inj. (sterile) 20 ML 10 ML IVP SCH (08:12)
[2018-01-04] MEDS: Insulin LISPRO 300 UNITS/3 ML VIAL SQ SCH ×4 (08:14→20:43)
[2018-01-04 09:06] LABS: Estimated Average Glucose 128 mg/dl; Hemoglobin A1C 6.1 %
--- NOTE | 2018-01-04 10:02 | Urology Progress Note ---
Date of Encounter: 01/04/18 Time of Encounter: 10:01 - Assessment and Plan (1) Hematuria Current Visit: Yes Status: Resolved Assessment and plan: Resolved. Continue Perkins catheter. Qualifiers: Hematuria type: gross Qualified Code(s): R31.0 - Gross hematuria (2) UTI (urinary tract infection) Current Visit: Yes Status: Acute Assessment and plan: Defer to internal medicine. Continue IV antibiotics until fever curve resolved. Qualifiers: Urinary tract infection type: acute cystitis Hematuria presence: with hematuria Qualified Code(s): N30.01 - Acute cystitis with hematuria (3) Urinary retention Current Visit: Yes Status: Acute Progress Note Narrative: 72-year-old man with hematuria and incomplete bladder emptying is seen in the hospital today. His urine has been clear coming from the Perkins catheter. He did have a temperature after admission, and had some low-grade temperatures yesterday. He is on IV antibiotic. Objective Initial Vital Signs Temp Pulse Resp BP Pulse Ox 98.2 F 81 16 103/53 99 01/02/18 16:15 01/02/18 16:15 01/02/18 16:15 01/02/18 16:15 01/02/18 16:15 - General physical appearance Present: well developed, well nourished, no distress - Respiratory Present: normal respiratory effort - Abdomen Present: soft - Labs 01/04/18 06:02 01/04/18 06:02 Diabetes panel 01/04/18 Range/Units 06:02 Sodium 139 (136-145) mEq/L Potassium 4.2 (3.5-5.1) mEq/L Chloride 112 H (98-107) mEq/L Carbon Dioxide 24 (23-29) mEq/L BUN 31 H (8-23) mg/dL Creatinine 1.91 H (0.70-1.30) mg/dL Glucose 158 H (70-105) mg/dL Calcium 8.6 (8.6-10.3) mg/dL Calcium panel 01/04/18 Range/Units 06:02 Calcium 8.6 (8.6-10.3) mg/dL Pituitary panel 01/04/18 Range/Units 06:02 Sodium 139 (136-145) mEq/L Potassium 4.2 (3.5-5.1) mEq/L Chloride 112 H (98-107) mEq/L Carbon Dioxide 24 (23-29) mEq/L BUN 31 H (8-23) mg/dL Creatinine 1.91 H (0.70-1.30) mg/dL Glucose 158 H (70-105) mg/dL Calcium 8.6 (8.6-10.3) mg/dL Adrenal panel 01/04/18 Range/Units 06:02 Sodium 139 (136-145) mEq/L Potassium 4.2 (3.5-5.1) mEq/L Chloride 112 H (98-107) mEq/L Carbon Dioxide 24 (23-29) mEq/L BUN 31 H (8-23) mg/dL Creatinine 1.91 H (0.70-1.30) mg/dL Glucose 158 H (70-105) mg/dL Calcium 8.6 (8.6-10.3) mg/dL - VTE Documentation of Mechanical Device: Intermittent pneumatic compression device Consult Discharge Plan - Plan Referrals: Debi Richard [Primary Care Provider] -
[2018-01-04] MEDS: *HR* HYDROcodone/Acet 5/325 mg TABLET PO PRN (11:23)
--- NOTE | 2018-01-04 12:17 | Internal Med Progress Note ---
Date of Encounter: 01/04/18 Time of Encounter: 11:30 - Assessment and plan (1) Sepsis Current Visit: Yes Status: Acute Assessment and plan: septic with T max 101.4, tachycardia, UTI Lactate is WNL Blood pressure is WNL Give additional bolus for CHRIS Blood culture sent 01/03, prelim no growth urine culture sent 01/02, pending Continue ceftriaxone MOnitor closely Qualifiers: Sepsis type: sepsis due to unspecified organism Qualified Code(s): A41.9 - Sepsis, unspecified organism (2) Acute kidney injury Current Visit: Yes Status: Acute Assessment and plan: CHRIS on CKD Post-renal due to urinary retention Improving slowly Continue to monitor Per urology needs to eb discharged home on Russell Avoid nephrotoxins (3) Renal cell carcinoma Current Visit: Yes Status: Chronic Assessment and plan: chronic stable Qualifiers: Laterality: right Qualified Code(s): C64.1 - Malignant neoplasm of right kidney, except renal pelvis (4) Type 2 diabetes mellitus Current Visit: Yes Status: Chronic Assessment and plan: on ISS + Levemir, continue same FS acceptable ADA diet Qualifiers: Diabetes mellitus snf insulin use: with manager intermediate use Diabetes mellitus complication status: without complication Qualified Code(s): E11.9 - Type 2 diabetes mellitus without complications; Z79.4 - intermediate manager (current) use of insulin (5) CKD (chronic kidney disease) stage 3, GFR 30-59 ml/min Current Visit: Yes Status: Chronic Assessment and plan: See CHRIS (6) Thrombocytopenia Current Visit: Yes Status: Chronic Assessment and plan: chronic thrombocytopenia noticed PLT this a.m 73 Possibly due to hemodilution as well as consumption from sepsis No bleeding Continue to monitor (7) Hematuria Current Visit: Yes Status: Resolved Assessment and plan: HB slightly less to 10.2 - 10.3 following Urine is clear now MOnitor closley PEr , needs to be discharged on Russell Qualifiers: Hematuria type: gross Qualified Code(s): R31.0 - Gross hematuria (8) UTI (urinary tract infection) Current Visit: Yes Status: Acute Assessment and plan: Contnue ceftriaxone Follow final urine culture Qualifiers: Urinary tract infection type: acute cystitis Hematuria presence: with hematuria Qualified Code(s): N30.01 - Acute cystitis with hematuria - Time Spent With Patient Total time spent is greater than 50% in coordination of care (as documented) at patient's floor/unit and/or counseling patient: - Subjective Interval history: Seen and evaluated at bedside 72 M with PMH of CKD III, HTN, DM, s/p R nephrectomy He is admitted and being managed for CHRIS on CKD, Urinary retention, Sepsis secondary to UTI s/p russell placement with improvement in renal function Afebrile since 01/03 23.32 Blood culture prelim no growth, urine culture is pending His complain this mrn is of low back pain (chronic) - Constitutional Vitals: Temp Pulse Resp BP Pulse Ox 98.9 F 69 15 120/63 97 01/04/18 11:39 01/04/18 11:39 01/04/18 11:39 01/04/18 11:39 01/04/18 11:39 General appearance: Present: A&O X 3, no acute distress, answers questions appropriately - Head Head exam: Present: atraumatic, normocephalic - Eye Eye exam: Present: PERRL, conjuntiva pink, sclera anicteric Pupils: Present: PERRL - Neck Neck exam general surgery: Present: supple, trachea midline. Absent: lymphadenopathy - Respiratory Respiratory exam: Present: CTAB. Absent: accessory muscle use, rales, rhonchi, wheezes - Cardiovascular Cardiovascular exam: Present: RRR, +S1, +S2. Absent: diastolic murmur, gallop, rubs, systolic murmur - GI/Abdominal GI/Abdominal exam: Present: normal bowel sounds, soft, no peritoneal signs. Absent: distended, tenderness - Additional comments: Russell draining clear urine - Extremities Exam Extremities exam: Present: warm, radial pulses palpable and symmetrical. Absent : calf tenderness, cyanotic, pedal edema - Neurological Exam Neurological exam: Present: alert, CN II-XII intact, oriented X3, no focal deficits. Absent: pronater drift, facial droop, speech deficit - Skin Skin exam: Present: dry, intact Internal Medicine: Result - Labs CBC & Chem 7: 01/04/18 06:02 01/04/18 06:02 Labs: Short CBC 01/04/18 Range/Units 06:02 WBC 4.4 (4.3-11.1) K/mcL Hgb 10.2 L (12.9-16.9) g/dL Hct 30.6 L (37.5-50.1) % Plt Count 73 L (140-400) K/mcL Neutrophils # 2.7 (1.6-8.9) K/mcL BMP 01/04/18 06:02 Sodium 139 Potassium 4.2 Chloride 112 H Carbon Dioxide 24 BUN 31 H Creatinine 1.91 H Glucose 158 H Calcium 8.6 - ABG Interpretation ABG results: PT/INR, D-dimer PT 12.5 Seconds (9.4-12.1) H 01/02/18 16:58 - VTE Documentation of Mechanical Device: Intermittent pneumatic compression device Consult Discharge Plan - Plan Referrals: Debi Richard [Primary Care Provider] -
[2018-01-04] MEDS: Insulin DETEMIR 100 UNIT/ML X5UNITS SQ SCH (20:51)
[2018-01-05 05:11] LABS: Basophils % 0.7 %; Red Cell Distribution Width 13.5 % (11.5-14.5)
[2018-01-05 05:14] LABS: Eosinophils # 0.2 K/mcL (0.0-0.6); Eosinophils % 4.1 %; Hematocrit 31.6 % (37.5-50.1); Hemoglobin 10.5 g/dL (12.9-16.9); Immature Granulocytes % 0.2 % (0-4); Immature Platelets 3.9 % (1.1-6.1); Lymphocytes # 1.4 K/mcL (0.6-4.6); Lymphocytes % 25.5 %; Mean Corpuscular HGB Conc 33.2 g/dL (31.6-35.5); Mean Corpuscular Hemoglobin 30.7 pg (28.0-33.3); Mean Corpuscular Volume 92.4 fL (83.0-100.0); Mean Platelet Volume 11.9 fL (9.4-12.4); Monocytes # 0.7 K/mcL (0.0-1.3); Monocytes % 12.8 %; Neutrophils # 3.2 K/mcL (1.6-8.9); Red Blood Count 3.42 M/mcL (4.19-5.50); Segmented Neutrophils % 56.7 %
[2018-01-05 05:21] LABS: Calcium 8.9 mg/dL (8.6-10.3); Potassium 4.3 mEq/L (3.5-5.1)
[2018-01-05 05:27] LABS: Platelet Count 81 K/mcL (140-400)
[2018-01-05] MEDS: cefTRIAXone 1,000 MG in Water for inj. (sterile) 20 ML 10 ML IVP SCH (07:23)
[2018-01-05] MEDS: Insulin LISPRO 300 UNITS/3 ML VIAL SQ SCH ×2 (07:24→12:03)
[2018-01-05] MEDS: *HR* HYDROcodone/Acet 5/325 mg TABLET PO PRN (07:29)
--- NOTE | 2018-01-05 08:42 | Discharge Summary ---
<Kat Escobar - Last Filed: 01/05/18 12:58> Orders not resulted at time of discharge: Pending orders 01/03/18 08:39 Culture,Blood [BC] Stat Date of Encounter: 01/05/18 Time of Encounter: 08:15 - Discharge Diagnosis (1) Sepsis Priority: Primary Status: Acute Qualifiers: Sepsis type: sepsis due to unspecified organism Qualified Code(s): A41.9 - Sepsis, unspecified organism (2) Acute kidney injury Priority: Secondary Status: Acute (3) Renal cell carcinoma Priority: Secondary Status: Chronic Qualifiers: Laterality: right Qualified Code(s): C64.1 - Malignant neoplasm of right kidney, except renal pelvis (4) CKD (chronic kidney disease) stage 3, GFR 30-59 ml/min Priority: Secondary Status: Chronic (5) Thrombocytopenia Priority: Secondary Status: Chronic (6) Hematuria Priority: Secondary Status: Resolved Qualifiers: Hematuria type: gross Qualified Code(s): R31.0 - Gross hematuria (7) UTI (urinary tract infection) Priority: Secondary Status: Acute Qualifiers: Urinary tract infection type: acute cystitis Hematuria presence: with hematuria Qualified Code(s): N30.01 - Acute cystitis with hematuria (8) Type 2 diabetes mellitus Priority: Secondary Status: Chronic Qualifiers: Diabetes mellitus termite treater helper insulin use: with long-term use Diabetes mellitus complication status: without complication Qualified Code(s): E11.9 - Type 2 diabetes mellitus without complications; Z79.4 - nursing home (current) use of insulin Hospital course: Mr. Olivera is a 72 year old male with known past medical history of HTN, DM2, Renal cell cancer s/p right-sided nephrectomy pt presented to the emergency department complaining of blood in the urine. He did have his right kidney removed in approximately 13 months ago. States had no problems since then. Said last 2 or 3 days he has noticed bright red blood in his urine. He does c/ o generalized weakness and mild low back pain. He does have mild supra pubic pain. He denied any fever / chills. Denied any urinary retention. Attempts to place a fully catheter were unsuccessful. He was admitted in urology was consulted and was able to place a fully catheter. He was found to be septic with cause being UTI. Tachycardic, febrile. He also had an CHRIS for which IV fluids were given. Urinalysis demonstrated UTI. Abdominal CT demonstrated a distended bladder, bladder outlet obstruction with hydroureter and hydronephrosis. Started on Rocephin. The hematuria improved throughout his stay. Blood cultures were negative. Urine culture was positive for aerococcus. Upon discharge he was afebrile, white blood cell count within normal limits, CHRIS improving, hematuria resolved. He was then discharged home on omniceph for 10 more days, fully catheter in place, follow-up with nephrology outpatient. He was told to return to the hospital should he develop fever, chills, worsened hematuria. He is alert and oriented times 3 with full capacity and stated clear understanding the treatment plan. Discharge discussed with: patient - Time Spent with Patient Total time spent providing and/or coordinating discharge services: Greater than 30 minutes - Discharge Medications Prescriptions: Cefdinir [Omnicef] 300 mg PO DAILY #10 capsule Home Medications: Allopurinol [Zyloprim] 300 mg PO DAILY 07/12/16 [History] Aspirin [Lo-Dose Aspirin EC] 81 mg PO DAILY 11/05/16 [History] Tamsulosin HCl [Flomax] 0.4 mg PO DAILY 11/05/16 [History] Insulin Glargine,Hum.rec.anlog [Lantus Solostar] 40 unit SQ HS 03/11/17 [History ] Insulin ASPART [Novolog Flexpen] 20 unit SQ QPM 04/08/17 [History] Insulin Glargine,Hum.rec.anlog [Lantus Solostar] 64 unit SQ QAM 07/08/17 [ History] Atenolol [Tenormin] 12.5 mg PO DAILY 10/30/17 [History] Bumetanide 0.5 mg PO DAILY 10/30/17 [History] Cholecalciferol (Vitamin D3) [Vitamin D3] 50,000 unit PO TU 10/30/17 [History] Ferrous Sulfate [Iron] 325 mg PO DAILY 10/30/17 [History] Cefdinir [Omnicef] 300 mg PO DAILY #10 capsule 01/05/18 [Rx] Allergies/Adverse Reactions: 3 Allergy/AdvReac Type Severity Reaction Status Date / Time No Known Allergies Allergy Verified 10/30/17 08:43 Date of admission: 01/02/18 21:28 Primary care physician: Debi Richard Consults: Urology Discharging clinician: Armani Bynum Anticipated date of discharge: 01/05/18 - Constitutional Vitals: Temp Pulse Resp BP Pulse Ox 98.6 F 68 16 122/68 97 01/05/18 07:18 01/05/18 07:18 01/05/18 07:18 01/05/18 07:18 01/05/18 07:33 General appearance: Present: A&O X 3, no acute distress, answers questions appropriately Exam: Gen.: Vitals noted. No acute distress. AAOx3 HEENT: oropharynx clear, Normocephalic, atraumatic Neck: Supple. No adenopathy. Cardiac: RRR, no murmur, +S1/S2 Pulmonary: CTA bilaterally, no wheezes, rales or rhonchi, equal chest expansion Abdomen: soft, nontender, Bowel sounds noted, no guarding Extremities: no BLE edema, nontender calf, no cyanosis or clubbing Neuro: A&Ox3, moves all extremities, no focal deficits Psych: Appropriate mood and behavior - Patient Status Disposition: Home, Self-Care Condition: Fair Functional capacity at discharge: independent ambulation Overall status at discharge: patient is back to baseline - Discharge Instructions Follow Up With: Debi Richard [Primary Care Provider] - Jayden Pretty MD [Partnered Physician] - Additional Instructions: Finished taking antibiotic to completion. Follow-up with urology outpatient return hospital should you develop fever, chills, worsened hematuria. - Diet and Activity Activity: resume usual activities as tolerated Diet: advance to your usual diet - VTE Documentation of Mechanical Device: Intermittent pneumatic compression device <Armani Bynum - Last Filed: 01/05/18 13:39> Orders not resulted at time of discharge: Pending orders 01/03/18 08:39 Culture,Blood [BC] Stat Date of Encounter: 01/05/18 - Discharge Diagnosis (1) Sepsis Status: Acute Qualifiers: Sepsis type: sepsis due to unspecified organism Qualified Code(s): A41.9 - Sepsis, unspecified organism (2) Acute kidney injury Status: Acute (3) Renal cell carcinoma Status: Chronic Qualifiers: Laterality: right Qualified Code(s): C64.1 - Malignant neoplasm of right kidney, except renal pelvis (4) Type 2 diabetes mellitus Status: Chronic Qualifiers: Diabetes mellitus termite treater helper insulin use: with long-term use Diabetes mellitus complication status: without complication Qualified Code(s): E11.9 - Type 2 diabetes mellitus without complications; Z79.4 - intermediate card tender (current) use of insulin (5) CKD (chronic kidney disease) stage 3, GFR 30-59 ml/min Status: Chronic (6) Thrombocytopenia Status: Chronic (7) Hematuria Status: Resolved Qualifiers: Hematuria type: gross Qualified Code(s): R31.0 - Gross hematuria (8) UTI (urinary tract infection) Status: Acute Qualifiers: Urinary tract infection type: acute cystitis Hematuria presence: with hematuria Qualified Code(s): N30.01 - Acute cystitis with hematuria Hospital course: Mr. Olivera is a 72 year old male - Time Spent with Patient Total time spent providing and/or coordinating discharge services: Date of admission: 01/02/18 21:28 Primary care physician: Debi Richard - Constitutional Vitals: Temp Pulse Resp BP Pulse Ox 98.5 F 71 16 114/68 98 01/05/18 11:14 01/05/18 11:14 01/05/18 11:14 01/05/18 11:14 01/05/18 11:14 - Attending Attestation Seen and examined independently at the bedside Plan of care discussed with patient and resident physician Sepsis has resolved, patient has been afberile, urine culture with aerococcus urinae-usually branch-sensitive Safe to discharge home with indwelling Perkins and renally adjusted cephalosporin Rest of details is as in the resident physician's documentation
[2018-01-05 11:14] VITALS: BP 114/68
[2018-01-05] MEDS: Acetaminophen 325 MG TABLET PO PRN (12:06)
== END 2018-01-05 15:25 | disposition home or self-care (01) | DRG 872 ==
LOC: 3ANU 15:49 → EMEROO 15:49 → 3ANU 22:07
PROVIDERS: ADMIT Internal Medicine; ATTEND Internal Medicine

== ENCOUNTER 2019-07-21 18:03 | Inpatient (IN) ==
[2019-07-21 21:48] LABS: Immature Granulocytes % 0.4 % (0-4); Mean Platelet Volume 10.7 fL (9.4-12.4)
[2019-07-21 21:49] LABS: Basophils % 0.4 %; Eosinophils % 0.7 %; Hematocrit 33.3 % (37.5-50.1); Hemoglobin 11.1 g/dL (12.9-16.9); Immature Platelets 2.9 % (1.1-6.1); Lymphocytes # 0.6 K/mcL (0.6-4.6); Lymphocytes % 9.7 %; Mean Corpuscular HGB Conc 33.3 g/dL (31.6-35.5); Mean Corpuscular Hemoglobin 31.3 pg (28.0-33.3); Mean Corpuscular Volume 93.8 fL (83.0-100.0); Monocytes # 0.4 K/mcL (0.0-1.3); Monocytes % 6.2 %; Neutrophils # 4.7 K/mcL (1.6-8.9); Red Blood Count 3.55 M/mcL (4.19-5.50); Segmented Neutrophils % 82.6 %; White Blood Count 5.7 K/mcL (4.3-11.1)
[2019-07-21 22:05] LABS: Albumin 3.5 g/dL (3.5-5.7); Bilirubin,Direct 0.1 mg/dL (0.0-0.2); Bilirubin,Indirect 0.3 mg/dL (0.0-1.0); Bilirubin,Total 0.4 mg/dL (0.3-1.0); Calcium 8.7 mg/dL (8.6-10.3); Globulin 3.4 g/dL (2.4-3.5); Magnesium 1.7 mg/dL (1.6-2.6); Potassium 4.3 mEq/L (3.5-5.1); Total Protein 6.9 g/dL (6.4-8.9)
[2019-07-21] MEDS ORDERED: *HR* Dextrose 50 % in Water (Syg) 50 ML SYRINGE IVP PRN (22:08)
[2019-07-21] MEDS ORDERED: Dextrose Gel 15 GM/37.5 ML TUBE PO PRN (22:08)
[2019-07-21] MEDS ORDERED: Acetaminophen 325 MG TABLET PO PRN (22:08)
[2019-07-21] MEDS ORDERED: traMADol 50 MG TABLET PO PRN (22:08)
[2019-07-21 22:09] LABS: Platelet Count 81 K/mcL (140-400); Platelet Estimate Decreased (Normal)
[2019-07-21] MEDS: Insulin DETEMIR 100 UNIT/ML X5UNITS SQ SCH (22:45)
[2019-07-21] MEDS: 0.9 % Sodium Chloride 1,000 ML IVC SCH (23:48)
[2019-07-22] MEDS: *HR* Heparin 5,000 UNIT/ML VIAL SQ SCH ×2 (05:29→17:48)
[2019-07-22 05:43] LABS: Bilirubin,Urine Negative (Negative); Blood,Urine Large (Negative); Clarity,Urine Cloudy (Clear); Color,Urine Yellow (Yellow); Glucose,Urine (UA) Normal (Normal); Ketones,Urine Negative (Negative); Leukocyte Esterase,Urine Moderate (Negative); Nitrite,Urine Negative (Negative); Protein,Urine >=300 mg/dL (Neg-Trace); Specific Gravity,Urine 1.015 (1.010-1.025); Urobilinogen,Urine Normal (Normal)
[2019-07-22] MEDS: Dextrose Gel 15 GM/37.5 ML TUBE PO PRN (06:13)
[2019-07-22 06:51] LABS: Red Cell Distribution Width 13.2 % (11.5-14.5)
[2019-07-22 06:52] LABS: Hematocrit 29.8 % (37.5-50.1); Hemoglobin 10.2 g/dL (12.9-16.9); Immature Platelets 3.5 % (1.1-6.1); Mean Corpuscular HGB Conc 34.2 g/dL (31.6-35.5); Mean Corpuscular Hemoglobin 31.7 pg (28.0-33.3); Mean Corpuscular Volume 92.5 fL (83.0-100.0); Mean Platelet Volume 11.5 fL (9.4-12.4); Red Blood Count 3.22 M/mcL (4.19-5.50); White Blood Count 5.6 K/mcL (4.3-11.1)
[2019-07-22 07:15] LABS: Calcium 8.5 mg/dL (8.6-10.3)
[2019-07-22] MEDS ORDERED: D5% in Water 1,000 ML IVC PRN (07:56)
[2019-07-22] MEDS: 0.9 % Sodium Chloride 1,000 ML IVC SCH ×2 (11:24→17:48)
[2019-07-22] MEDS: Insulin LISPRO 300 UNITS/3 ML VIAL SQ SCH ×4 (11:27→21:18)
[2019-07-22] MEDS: Insulin DETEMIR 100 UNIT/ML X5UNITS SQ SCH (21:19)
[2019-07-23] MEDS: *HR* Heparin 5,000 UNIT/ML VIAL SQ SCH ×2 (04:35→17:22)
[2019-07-23] MEDS: 0.9 % Sodium Chloride 1,000 ML IVC SCH ×2 (04:35→12:18)
[2019-07-23 07:00] LABS: Basophils % 0.6 %; Immature Granulocytes % 0.2 % (0-4); Lymphocytes % 23.9 %; Red Cell Distribution Width 13.2 % (11.5-14.5)
[2019-07-23 07:02] LABS: Eosinophils # 0.1 K/mcL (0.0-0.6); Eosinophils % 2.2 %; Hematocrit 30.2 % (37.5-50.1); Hemoglobin 10.3 g/dL (12.9-16.9); Immature Platelets 2.8 % (1.1-6.1); Lymphocytes # 1.2 K/mcL (0.6-4.6); Mean Corpuscular HGB Conc 34.1 g/dL (31.6-35.5); Mean Corpuscular Hemoglobin 32.2 pg (28.0-33.3); Mean Corpuscular Volume 94.4 fL (83.0-100.0); Monocytes # 0.5 K/mcL (0.0-1.3); Monocytes % 9.5 %; Neutrophils # 3.2 K/mcL (1.6-8.9); Segmented Neutrophils % 63.6 %
[2019-07-23 07:07] LABS: Platelet Count 79 K/mcL (140-400)
[2019-07-23 07:20] LABS: Calcium 8.3 mg/dL (8.6-10.3)
[2019-07-23 07:21] LABS: % Iron Saturation 45 % (20-55); Iron 103 mcg/dL (65-175); Transferrin 164 mg/dL (203-362)
[2019-07-23] MEDS: Dextrose Gel 15 GM/37.5 ML TUBE PO PRN (07:26)
[2019-07-23 07:40] LABS: Ferritin 266 ng/mL (20-250)
[2019-07-23] MEDS: Insulin LISPRO 300 UNITS/3 ML VIAL SQ SCH ×4 (09:06→21:16)
[2019-07-23 09:15] LABS: Folate > 22.3 ng/mL (3.0-16.0); Vitamin B12 499 pg/mL (250-1100)
[2019-07-23 12:01] LABS: Estimated Average Glucose 166 mg/dl
[2019-07-23 12:39] LABS: Bilirubin,Urine Negative (Negative); Blood,Urine Large (Negative); Clarity,Urine Cloudy (Clear); Color,Urine Yellow (Yellow); Glucose,Urine (UA) Normal (Normal); Ketones,Urine Negative (Negative); Leukocyte Esterase,Urine Small (Negative); Nitrite,Urine Negative (Negative); Protein,Urine >=300 mg/dL (Neg-Trace); Specific Gravity,Urine 1.012 (1.010-1.025); Urobilinogen,Urine Normal (Normal)
[2019-07-23 12:41] LABS: Bacteria,Urine None Seen per hpf (None-Few); Hyaline Casts,Urine None Seen per lpf (None-Few); RBC,Urine TNTC per hpf (0-3); Squamous Epithelial Cell,Urine Many per lpf (None-Few); WBC,Urine 15-30 per hpf (0-3)
[2019-07-23 12:50] LABS: Protein/Creatinine Ratio,Urine 2.77 mg/mg (0.00-0.20); Sodium, Urine 80.2 mEq/L
[2019-07-23 15:37] LABS: Complement C3 112 mg/dL (87-200)
[2019-07-23] MEDS: Insulin DETEMIR 100 UNIT/ML X5UNITS SQ SCH (21:18)
[2019-07-24] MEDS: *HR* Heparin 5,000 UNIT/ML VIAL SQ SCH ×2 (05:56→20:41)
[2019-07-24 18:52] LABS: Calcium 8.4 mg/dL (8.6-10.3)
[2019-07-24 18:56] LABS: Basophils % 0.6 %; Eosinophils % 2.5 %; Immature Granulocytes % 0.2 % (0-4); Mean Platelet Volume 11.7 fL (9.4-12.4); Segmented Neutrophils % 61.6 %
[2019-07-24 18:58] LABS: Eosinophils # 0.1 K/mcL (0.0-0.6); Hematocrit 30.5 % (37.5-50.1); Hemoglobin 10.3 g/dL (12.9-16.9); Immature Platelets 3.3 % (1.1-6.1); Lymphocytes # 1.2 K/mcL (0.6-4.6); Lymphocytes % 25.3 %; Mean Corpuscular HGB Conc 33.8 g/dL (31.6-35.5); Mean Corpuscular Hemoglobin 31.4 pg (28.0-33.3); Monocytes # 0.5 K/mcL (0.0-1.3); Monocytes % 9.8 %; Red Blood Count 3.28 M/mcL (4.19-5.50); White Blood Count 4.8 K/mcL (4.3-11.1)
[2019-07-24 19:45] LABS: Platelet Count 81 K/mcL (140-400)
[2019-07-24] MEDS: Insulin LISPRO 300 UNITS/3 ML VIAL SQ SCH ×3 (20:32→22:31)
[2019-07-24] MEDS: Insulin DETEMIR 100 UNIT/ML X5UNITS SQ SCH (22:31)
[2019-07-25] MEDS: *HR* Heparin 5,000 UNIT/ML VIAL SQ SCH ×2 (06:36→16:19)
[2019-07-25 07:03] LABS: Magnesium 1.7 mg/dL (1.6-2.6); Phosphorous 3.7 mg/dL (2.7-4.5)
[2019-07-25 07:27] LABS: Basophils % 0.6 %; Eosinophils # 0.1 K/mcL (0.0-0.6); Eosinophils % 2.6 %; Hemoglobin 10.7 g/dL (12.9-16.9); Immature Granulocytes % 0.2 % (0-4); Lymphocytes # 1.2 K/mcL (0.6-4.6); Lymphocytes % 24.4 %; Mean Corpuscular HGB Conc 34.5 g/dL (31.6-35.5); Mean Corpuscular Hemoglobin 31.8 pg (28.0-33.3); Mean Platelet Volume 11.3 fL (9.4-12.4); Monocytes # 0.5 K/mcL (0.0-1.3); Monocytes % 10.3 %; Red Blood Count 3.37 M/mcL (4.19-5.50); Red Cell Distribution Width 12.9 % (11.5-14.5); Segmented Neutrophils % 61.9 %; White Blood Count 5.1 K/mcL (4.3-11.1)
[2019-07-25 07:28] LABS: Neutrophils # 3.2 K/mcL (1.6-8.9); Platelet Count 96 K/mcL (140-400)
[2019-07-25 07:33] LABS: Calcium 8.7 mg/dL (8.6-10.3); Potassium 4.8 mEq/L (3.5-5.1)
[2019-07-25] MEDS: Insulin LISPRO 300 UNITS/3 ML VIAL SQ SCH ×4 (07:33→22:01)
[2019-07-25] MEDS ORDERED: Ringers Solution, Lactated 1,000 ML IVC SCH (13:00)
[2019-07-25] MEDS ORDERED: Sodium Bicarbonate 75 MEQ in 0.45 % Sodium Chloride 1,000 ML IVC SCH (15:15)
[2019-07-25] MEDS: Insulin DETEMIR 100 UNIT/ML X5UNITS SQ SCH (22:01)
[2019-07-26 02:16] LABS: Kappa Qnt Free Light Chains 15.4 mg/dL (0.33-1.94); Lambda Qnt Free Light Chains 7.76 mg/dL (0.57-2.63)
[2019-07-26 05:10] LABS: Bilirubin,Urine Negative (Negative); Blood,Urine Large (Negative); Clarity,Urine Cloudy (Clear); Color,Urine Yellow (Yellow); Glucose,Urine (UA) Normal (Normal); Ketones,Urine Negative (Negative); Leukocyte Esterase,Urine Moderate (Negative); Nitrite,Urine Negative (Negative); Protein,Urine >=300 mg/dL (Neg-Trace); Specific Gravity,Urine 1.013 (1.010-1.025); Urobilinogen,Urine Normal (Normal)
[2019-07-26 05:12] LABS: Bacteria,Urine None Seen per hpf (None-Few); Hyaline Casts,Urine Few per lpf (None-Few); RBC,Urine TNTC per hpf (0-3); Squamous Epithelial Cell,Urine Many per lpf (None-Few); WBC,Urine TNTC per hpf (0-3)
[2019-07-26] MEDS: *HR* Heparin 5,000 UNIT/ML VIAL SQ SCH (05:19)
[2019-07-26 05:37] LABS: Immature Granulocytes % 0.2 % (0-4); Monocytes % 9.7 %
[2019-07-26 05:40] LABS: Basophils % 0.7 %; Eosinophils # 0.1 K/mcL (0.0-0.6); Eosinophils % 2.6 %; Hematocrit 29.6 % (37.5-50.1); Hemoglobin 10.1 g/dL (12.9-16.9); Lymphocytes # 1.1 K/mcL (0.6-4.6); Lymphocytes % 25.1 %; Mean Corpuscular HGB Conc 34.1 g/dL (31.6-35.5); Mean Corpuscular Hemoglobin 31.3 pg (28.0-33.3); Mean Corpuscular Volume 91.6 fL (83.0-100.0); Monocytes # 0.4 K/mcL (0.0-1.3); Neutrophils # 2.6 K/mcL (1.6-8.9); Platelet Count 79 K/mcL (140-400); Red Blood Count 3.23 M/mcL (4.19-5.50); Red Cell Distribution Width 12.7 % (11.5-14.5); Segmented Neutrophils % 61.7 %; White Blood Count 4.2 K/mcL (4.3-11.1)
[2019-07-26 05:41] LABS: INR 1.2; Prothrombin Time 13.4 Seconds (9.4-12.1)
[2019-07-26 05:44] LABS: Activated Partial Thrombo Time 32.6 Seconds (26.0-36.0)
[2019-07-26 06:01] LABS: Calcium 8.4 mg/dL (8.6-10.3); Magnesium 1.6 mg/dL (1.6-2.6); Potassium 4.2 mEq/L (3.5-5.1)
[2019-07-26] MEDS: Insulin LISPRO 300 UNITS/3 ML VIAL SQ SCH ×2 (07:49→12:56)
[2019-07-26] MEDS ORDERED: predniSONE 20 MG TABLET PO SCH (09:00)
[2019-07-26] MEDS ORDERED: *HR* Midazolam HCl 2 MG/2 ML VIAL IVP ONE (09:16)
[2019-07-26] MEDS ORDERED: *HR* Midazolam HCl 2 MG/2 ML VIAL ONE (09:21)
[2019-07-26] MEDS ORDERED: *HR* FentaNYL (PF) 100 MCG/2 ML VIAL ONE (09:22)
[2019-07-26] MEDS ORDERED: *HR* FentaNYL (PF) 100 MCG/2 ML VIAL IVP ONE (09:23)
[2019-07-26 09:43] VITALS: BP 130/71
[2019-07-26 09:50] LABS: Protein/Creatinine Ratio,Urine 3.03 mg/mg (0.00-0.20)
[2019-07-26 10:18] LABS: Serine Protease-3 Antibody 1 AU/mL (0-19)
[2019-07-26 10:26] LABS: ANA IgG by ELISA DETECTED (None Detected)
[2019-07-26] MEDS ORDERED: FLU Vac QV 19-20 (6Month+)/PF 0.5 ML SYRINGE IM ONE (10:48)
[2019-07-26 13:00] LABS: Hematocrit 32.2 % (37.5-50.1); Hemoglobin 10.5 g/dL (12.9-16.9)
[2019-07-27 11:11] LABS: ANA HEp-2 IgG IFA DETECTED (<1:80); Anti Nuclear Ab Pattern SPECKLED
[2019-07-27 13:04] LABS: Alpha 2 Globulin (PEP) 0.73 g/dL (0.48-1.05); Beta Globulin (PEP) 0.94 g/dL (0.48-1.10)
[2019-07-27 14:38] LABS: IFE Reflexed NOT DONE
== END 2019-07-26 13:17 | disposition home or self-care (01) | DRG 683 ==
LOC: 2ANU → SUATTDRO 20:10 → EDBD 20:10 → MERGE 07-23 14:09
PROVIDERS: ADMIT Student in an Organized Health Care Education/Training Program; ATTEND Pharmacist

== ENCOUNTER 2019-07-28 13:43 | Inpatient (IN) ==
[2019-07-28 14:35] LABS: Basophils % 0.1 %; Hematocrit 30.7 % (37.5-50.1); Hemoglobin 10.6 g/dL (12.9-16.9); Immature Granulocytes % 0.5 % (0-4); Lymphocytes # 0.5 K/mcL (0.6-4.6); Lymphocytes % 5.9 %; Mean Corpuscular HGB Conc 34.5 g/dL (31.6-35.5); Mean Corpuscular Hemoglobin 31.4 pg (28.0-33.3); Mean Corpuscular Volume 90.8 fL (83.0-100.0); Mean Platelet Volume 10.8 fL (9.4-12.4); Monocytes # 0.5 K/mcL (0.0-1.3); Monocytes % 5.6 %; Platelet Count 117 K/mcL (140-400); Red Blood Count 3.38 M/mcL (4.19-5.50); Red Cell Distribution Width 13.3 % (11.5-14.5); Segmented Neutrophils % 87.9 %
[2019-07-28 14:54] LABS: Calcium 8.7 mg/dL (8.6-10.3); Potassium 4.5 mEq/L (3.5-5.1)
[2019-07-28] MEDS ORDERED: 0.9 % Sodium Chloride 1,000 ML IVC SCH ×2 (15:15→17:30)
[2019-07-28 15:47] LABS: Bilirubin,Urine Negative (Negative); Blood,Urine Large (Negative); Clarity,Urine Cloudy (Clear); Color,Urine Yellow (Yellow); Glucose,Urine (UA) 100 mg/dL (Normal); Ketones,Urine Negative (Negative); Leukocyte Esterase,Urine Trace (Negative); Nitrite,Urine Negative (Negative); Protein,Urine >=300 mg/dL (Neg-Trace); Specific Gravity,Urine 1.019 (1.010-1.025); Urobilinogen,Urine Normal (Normal)
[2019-07-28 15:50] LABS: Bacteria,Urine None Seen per hpf (None-Few); Hyaline Casts,Urine None Seen per lpf (None-Few); RBC,Urine TNTC per hpf (0-3); Squamous Epithelial Cell,Urine Many per lpf (None-Few); WBC,Urine 15-30 per hpf (0-3)
[2019-07-28 16:04] LABS: Albumin 3.4 g/dL (3.5-5.7); Albumin/Globulin Ratio 1.1 (1.1-2.2); Bilirubin,Direct 0.1 mg/dL (0.0-0.2); Bilirubin,Indirect 0.2 mg/dL (0.0-1.0); Bilirubin,Total 0.3 mg/dL (0.3-1.0); Globulin 3.2 g/dL (2.4-3.5); Total Protein 6.6 g/dL (6.4-8.9)
[2019-07-28] MEDS ORDERED: Naloxone 0.4 MG/ML INJ IVP PRN (17:03)
[2019-07-28] MEDS: Insulin DETEMIR 100 UNIT/ML X5UNITS SQ SCH (20:44)
[2019-07-28] MEDS: Insulin LISPRO 300 UNITS/3 ML VIAL SQ SCH (20:44)
[2019-07-29 03:17] LABS: Calcium 8.2 mg/dL (8.6-10.3); Potassium 4.6 mEq/L (3.5-5.1)
[2019-07-29 03:22] LABS: Basophils % 0.2 %; Hematocrit 27.9 % (37.5-50.1); Hemoglobin 9.6 g/dL (12.9-16.9); Immature Granulocytes % 0.3 % (0-4); Lymphocytes # 0.8 K/mcL (0.6-4.6); Lymphocytes % 13.5 %; Mean Corpuscular HGB Conc 34.4 g/dL (31.6-35.5); Mean Corpuscular Hemoglobin 31.8 pg (28.0-33.3); Mean Corpuscular Volume 92.4 fL (83.0-100.0); Mean Platelet Volume 12.1 fL (9.4-12.4); Monocytes # 0.5 K/mcL (0.0-1.3); Monocytes % 8.4 %; Neutrophils # 4.6 K/mcL (1.6-8.9); Platelet Count 105 K/mcL (140-400); Red Blood Count 3.02 M/mcL (4.19-5.50); Red Cell Distribution Width 13.3 % (11.5-14.5); Segmented Neutrophils % 77.6 %
[2019-07-29] MEDS ORDERED: D5% in Water 1,000 ML IVC PRN (07:52)
[2019-07-29] MEDS ORDERED: *HR* Dextrose 50 % in Water (Syg) 50 ML SYRINGE IVP PRN (07:52)
[2019-07-29] MEDS ORDERED: Dextrose Gel 15 GM/37.5 ML TUBE PO PRN ×2 (07:52)
[2019-07-29] MEDS: Aspirin Enteric Coated 81 MG Tablet PO SCH (08:32)
[2019-07-29] MEDS: Insulin LISPRO 300 UNITS/3 ML VIAL SQ SCH ×4 (08:33→21:06)
[2019-07-29 10:35] LABS: Creatinine,Urine 102 mg/dL; Microalbumin,Urine > 1350 mg/L; Protein/Creatinine Ratio,Urine 6.11 mg/mg (0.00-0.20)
[2019-07-29] MEDS: Insulin DETEMIR 100 UNIT/ML X5UNITS SQ SCH (21:06)
[2019-07-30] MEDS: Aspirin Enteric Coated 81 MG Tablet PO SCH (07:38)
[2019-07-30] MEDS: Insulin LISPRO 300 UNITS/3 ML VIAL SQ SCH ×5 (07:57→21:33)
[2019-07-30 10:45] LABS: Calcium 8.1 mg/dL (8.6-10.3); Potassium 4.2 mEq/L (3.5-5.1)
[2019-07-30] MEDS: Insulin DETEMIR 100 UNIT/ML X5UNITS SQ SCH (21:36)
[2019-07-31 04:38] LABS: Hepatitis B Surface Antibody < 3.10 mIU/mL
[2019-07-31 04:49] LABS: Hepatitis B Surface Antigen Nonreactive (Nonreactive)
[2019-07-31 05:18] LABS: Hepatitis C Virus Antibody Nonreactive (Nonreactive)
[2019-07-31] MEDS: Insulin LISPRO 300 UNITS/3 ML VIAL SQ SCH ×4 (09:30→21:42)
[2019-07-31] MEDS: Aspirin Enteric Coated 81 MG Tablet PO SCH (09:34)
[2019-07-31 12:44] LABS: Calcium 8.5 mg/dL (8.6-10.3); Potassium 4.2 mEq/L (3.5-5.1)
[2019-07-31] MEDS: predniSONE 20 MG TABLET PO SCH (16:17)
[2019-07-31 20:07] LABS: HCV Quant Log NOT DETECTED log IU/mL
[2019-07-31] MEDS: Insulin DETEMIR 100 UNIT/ML X5UNITS SQ SCH (21:42)
[2019-08-01 06:30] LABS: Hematocrit 28.7 % (37.5-50.1)
[2019-08-01 06:52] LABS: Calcium 8.4 mg/dL (8.6-10.3); Potassium 4.7 mEq/L (3.5-5.1)
[2019-08-01] MEDS: predniSONE 20 MG TABLET PO SCH (07:47)
[2019-08-01] MEDS: Aspirin Enteric Coated 81 MG Tablet PO SCH (07:47)
[2019-08-01] MEDS: Insulin LISPRO 300 UNITS/3 ML VIAL SQ SCH ×4 (07:55→21:02)
[2019-08-01 08:56] LABS: HCV Quant Interpretation NOT DETECTED (Not Detected)
[2019-08-01 09:07] LABS: Ribonucleic Protein IgG-Sm/RNP 0 AU/mL (0-40); Ribosomal P Protein Antibody 0 AU/mL (0-40); SSA 52 (Anti-RO) Antibody 28 AU/mL (0-40); SSA 60 (Anti-RO) Antibody 0 AU/mL (0-40)
[2019-08-01 14:03] LABS: HBV Quant Log by PCR NOT DETECTED log IU/mL; HBV Quant by PCR NOT DETECTED
[2019-08-01] MEDS: Insulin DETEMIR 100 UNIT/ML X5UNITS SQ SCH (21:01)
[2019-08-02 05:24] LABS: Calcium 8.3 mg/dL (8.6-10.3); Potassium 4.3 mEq/L (3.5-5.1)
[2019-08-02] MEDS: Insulin LISPRO 300 UNITS/3 ML VIAL SQ SCH ×2 (07:37→11:26)
[2019-08-02 08:33] LABS: HBV Quant Interpretation NOT DETECTED (Not Detected)
[2019-08-02] MEDS: predniSONE 20 MG TABLET PO SCH (08:54)
[2019-08-02] MEDS: Aspirin Enteric Coated 81 MG Tablet PO SCH (08:56)
[2019-08-02 11:02] VITALS: BP 148/69
== END 2019-08-02 15:45 | disposition home or self-care (01) | DRG 683 ==
LOC: SUATTDRO → 2ANU 13:43 → EMEROOARM 13:43 → SUATTDRO 16:51 → 2ANU 17:28
PROVIDERS: ADMIT Internal Medicine; ATTEND Internal Medicine

== ENCOUNTER 2019-08-30 16:52 | Inpatient (IN) ==
[2019-08-30 17:47] LABS: Hematocrit 29.8 % (37.5-50.1); Hemoglobin 10.2 g/dL (12.9-16.9); Immature Granulocytes % 0.3 % (0-4); Immature Platelets 2.7 % (1.1-6.1); Lymphocytes # 0.1 K/mcL (0.6-4.6); Lymphocytes % 1.7 %; Mean Corpuscular HGB Conc 34.2 g/dL (31.6-35.5); Mean Corpuscular Volume 93.4 fL (83.0-100.0); Mean Platelet Volume 11.5 fL (9.4-12.4); Monocytes # 0.1 K/mcL (0.0-1.3); Monocytes % 1.7 %; Neutrophils # 6.9 K/mcL (1.6-8.9); Red Blood Count 3.19 M/mcL (4.19-5.50); Red Cell Distribution Width 13.3 % (11.5-14.5); Segmented Neutrophils % 96.3 %; White Blood Count 7.2 K/mcL (4.3-11.1)
[2019-08-30 17:48] LABS: Platelet Count 56 K/mcL (140-400)
[2019-08-30 18:02] LABS: Platelet Estimate Decreased (Normal); Toxic Granulation Present (Not Present)
[2019-08-30 18:10] LABS: Albumin 2.8 g/dL (3.5-5.7); Albumin/Globulin Ratio 1.4 (1.1-2.2); Bilirubin,Direct 0.1 mg/dL (0.0-0.2); Bilirubin,Indirect 0.3 mg/dL (0.0-1.0); Bilirubin,Total 0.4 mg/dL (0.3-1.0); Calcium 8.3 mg/dL (8.6-10.3); Potassium 5.3 mEq/L (3.5-5.1); Total Protein 4.8 g/dL (6.4-8.9); Troponin I 0.04 ng/mL (< 0.04)
[2019-08-30] MEDS ORDERED: Aspirin 325 MG TABLET PO ONE (18:12)
[2019-08-30] MEDS ORDERED: Naloxone 0.4 MG/ML INJ IVP PRN (22:44)
[2019-08-30] MEDS ORDERED: Dextrose Gel 15 GM/37.5 ML TUBE PO PRN ×2 (22:48)
[2019-08-30] MEDS ORDERED: *HR* Dextrose 50 % in Water (Syg) 50 ML SYRINGE IVP PRN (22:48)
[2019-08-30] MEDS ORDERED: D5% in Water 1,000 ML IVC PRN (22:48)
[2019-08-31] MEDS: Insulin LISPRO 300 UNITS/3 ML VIAL SQ SCH ×4 (00:21→20:55)
[2019-08-31 00:32] LABS: Calcium 8.2 mg/dL (8.6-10.3); Potassium 5.6 mEq/L (3.5-5.1)
[2019-08-31] MEDS ORDERED: Calcium Gluconate 1gm/50mL 1 GM/50 ML BAG IVPB ONE (00:45)
[2019-08-31] MEDS ORDERED: Insulin Human Regular 10 UNIT in 0.9 % Sodium Chloride 10 ML IV ONE (00:45)
[2019-08-31] MEDS ORDERED: Albuterol 2.5 MG/3 ML NEBULIZER IH ONE (00:46)
[2019-08-31 06:31] LABS: INR 1.1; Prothrombin Time 12.6 Seconds (9.4-12.1)
[2019-08-31 06:33] LABS: Hematocrit 27.2 % (37.5-50.1); Hemoglobin 9.2 g/dL (12.9-16.9); Immature Platelets 2.8 % (1.1-6.1); Mean Corpuscular HGB Conc 33.8 g/dL (31.6-35.5); Mean Corpuscular Hemoglobin 31.6 pg (28.0-33.3); Mean Corpuscular Volume 93.5 fL (83.0-100.0); Mean Platelet Volume 11.4 fL (9.4-12.4); Red Blood Count 2.91 M/mcL (4.19-5.50); Red Cell Distribution Width 13.4 % (11.5-14.5); White Blood Count 6.1 K/mcL (4.3-11.1)
[2019-08-31 07:00] LABS: Troponin I 0.04 ng/mL (< 0.04)
[2019-08-31 07:01] LABS: Albumin 2.7 g/dL (3.5-5.7); Albumin/Globulin Ratio 1.4 (1.1-2.2); Bilirubin,Total 0.4 mg/dL (0.3-1.0); Calcium 8.3 mg/dL (8.6-10.3); Magnesium 1.8 mg/dL (1.6-2.6); Phosphorous 4.8 mg/dL (2.7-4.5); Potassium 5.5 mEq/L (3.5-5.1); Total Protein 4.7 g/dL (6.4-8.9)
[2019-08-31] MEDS ORDERED: 0.9 % Sodium Chloride 250 ML IVC PRN (10:23)
[2019-08-31] MEDS ORDERED: 0.9 % Sodium Chloride 1,000 ML PRIME SCH (10:30)
[2019-08-31] MEDS ORDERED: 0.9 % Sodium Chloride 1,000 ML ONE (10:59)
[2019-08-31] MEDS ORDERED: Heparin 1,000 UNITS/500 mL 500 ML ONE (11:27)
[2019-08-31 11:59] LABS: Hepatitis B Surface Antibody < 3.10 mIU/mL
[2019-08-31 12:11] LABS: Hepatitis B Surface Antigen Nonreactive (Nonreactive)
[2019-08-31 12:40] LABS: Hepatitis B Core IgM Nonreactive (Nonreactive)
[2019-08-31] MEDS ORDERED: *HR* Midazolam HCl 2 MG/2 ML VIAL IVP ONE (12:47)
[2019-08-31] MEDS ORDERED: *HR* FentaNYL (PF) 100 MCG/2 ML VIAL IVP ONE (12:47)
[2019-08-31] MEDS ORDERED: CeFAZolin Premix DUPLEX 2,000 MG/50 ML BAG IVPB ONE (12:47)
[2019-08-31] MEDS ORDERED: 0.9 % Sodium Chloride 500 ML ONE (12:58)
[2019-08-31] MEDS ORDERED: *HR* Heparin 5,000 UNIT/ML VIAL ONE (13:04)
[2019-08-31] MEDS ORDERED: *HR* Heparin 5,000 UNIT/ML VIAL SQ SCH (18:00)
[2019-09-01 04:50] LABS: Eosinophils # 0.1 K/mcL (0.0-0.6); Eosinophils % 1.3 %; Hematocrit 23.2 % (37.5-50.1); Hemoglobin 7.9 g/dL (12.9-16.9); Immature Granulocytes % 0.2 % (0-4); Lymphocytes # 0.7 K/mcL (0.6-4.6); Lymphocytes % 14.9 %; Mean Corpuscular HGB Conc 34.1 g/dL (31.6-35.5); Mean Corpuscular Hemoglobin 31.7 pg (28.0-33.3); Mean Corpuscular Volume 93.2 fL (83.0-100.0); Mean Platelet Volume 9.8 fL (9.4-12.4); Monocytes # 0.3 K/mcL (0.0-1.3); Monocytes % 7.4 %; Neutrophils # 3.5 K/mcL (1.6-8.9); Red Blood Count 2.49 M/mcL (4.19-5.50); Red Cell Distribution Width 13.5 % (11.5-14.5); Segmented Neutrophils % 76.2 %; White Blood Count 4.6 K/mcL (4.3-11.1)
[2019-09-01 04:52] LABS: Platelet Count 53 K/mcL (140-400)
[2019-09-01 05:08] LABS: Calcium 7.7 mg/dL (8.6-10.3); Magnesium 1.8 mg/dL (1.6-2.6); Phosphorous 4.7 mg/dL (2.7-4.5); Potassium 4.2 mEq/L (3.5-5.1)
[2019-09-01] MEDS ORDERED: 0.9 % Sodium Chloride 250 ML IVC PRN (07:09)
[2019-09-01] MEDS: Insulin LISPRO 300 UNITS/3 ML VIAL SQ SCH ×4 (08:12→21:14)
[2019-09-01] MEDS: Aspirin Enteric Coated 81 MG Tablet PO SCH (08:14)
[2019-09-01] MEDS ORDERED: Sulfamethoxazole/Trimeth SS 1 TAB PO SCH ×2 (09:00→11:29)
[2019-09-01] MEDS ORDERED: *HR* Heparin 10,000 UNIT/10 ML VIAL IV PRN (11:06)
[2019-09-01 13:48] LABS: Hematocrit 27.1 % (37.5-50.1); Hemoglobin 8.7 g/dL (12.9-16.9)
[2019-09-01 14:01] LABS: Basophils % 0.1 %; Mean Corpuscular HGB Conc 34.3 g/dL (31.6-35.5); Monocytes % 5.8 %; Red Cell Distribution Width 13.8 % (11.5-14.5)
[2019-09-01 14:03] LABS: Eosinophils # 0.2 K/mcL (0.0-0.6); Eosinophils % 1.9 %; Immature Granulocytes % 0.5 % (0-4); Immature Platelets 3.5 % (1.1-6.1); Lymphocytes % 12.8 %; Mean Corpuscular Hemoglobin 31.9 pg (28.0-33.3); Mean Platelet Volume 11.6 fL (9.4-12.4); Monocytes # 0.5 K/mcL (0.0-1.3); Red Blood Count 2.85 M/mcL (4.19-5.50); Segmented Neutrophils % 78.9 %; White Blood Count 7.8 K/mcL (4.3-11.1)
[2019-09-01 14:06] LABS: Neutrophils # 6.2 K/mcL (1.6-8.9); Platelet Count 67 K/mcL (140-400)
[2019-09-01 16:48] LABS: Hematocrit 24.1 % (37.5-50.1); Hemoglobin 7.7 g/dL (12.9-16.9)
[2019-09-01 23:40] LABS: Hematocrit 22.4 % (37.5-50.1); Hemoglobin 7.7 g/dL (12.9-16.9)
[2019-09-02 05:50] LABS: Eosinophils # 0.1 K/mcL (0.0-0.6); Eosinophils % 1.3 %; Hematocrit 22.4 % (37.5-50.1); Hemoglobin 7.6 g/dL (12.9-16.9); Immature Granulocytes % 0.6 % (0-4); Immature Platelets 2.2 % (1.1-6.1); Lymphocytes # 0.6 K/mcL (0.6-4.6); Lymphocytes % 12.2 %; Mean Corpuscular HGB Conc 33.9 g/dL (31.6-35.5); Mean Corpuscular Hemoglobin 31.7 pg (28.0-33.3); Mean Corpuscular Volume 93.3 fL (83.0-100.0); Mean Platelet Volume 12.1 fL (9.4-12.4); Monocytes # 0.4 K/mcL (0.0-1.3); Monocytes % 8.4 %; Red Cell Distribution Width 13.6 % (11.5-14.5); Segmented Neutrophils % 77.5 %; White Blood Count 4.7 K/mcL (4.3-11.1)
[2019-09-02 06:08] LABS: Calcium 7.5 mg/dL (8.6-10.3); Neutrophils # 3.6 K/mcL (1.6-8.9); Platelet Count 45 K/mcL (140-400); Potassium 4.1 mEq/L (3.5-5.1)
[2019-09-02] MEDS: Insulin LISPRO 300 UNITS/3 ML VIAL SQ SCH ×5 (07:45→21:05)
[2019-09-02] MEDS ORDERED: 0.9 % Sodium Chloride 250 ML IVC PRN (07:51)
[2019-09-02] MEDS: Aspirin Enteric Coated 81 MG Tablet PO SCH (08:14)
[2019-09-02] MEDS ORDERED: 0.9 % Sodium Chloride 1,000 ML PRIME SCH (10:30)
[2019-09-02] MEDS ORDERED: *HR* Heparin 10,000 UNIT/10 ML VIAL IV PRN (10:30)
[2019-09-02 17:36] LABS: % Iron Saturation 18 % (20-55); Iron 34 mcg/dL (65-175); Transferrin 135 mg/dL (203-362)
[2019-09-03 07:09] LABS: Hematocrit 20.5 % (37.5-50.1); Lymphocytes % 16.5 %
[2019-09-03 07:11] LABS: Eosinophils # 0.1 K/mcL (0.0-0.6); Eosinophils % 1.6 %; Hemoglobin 6.9 g/dL (12.9-16.9); Immature Granulocytes % 0.9 % (0-4); Immature Platelets 2.9 % (1.1-6.1); Lymphocytes # 0.5 K/mcL (0.6-4.6); Mean Corpuscular HGB Conc 33.7 g/dL (31.6-35.5); Mean Corpuscular Hemoglobin 32.1 pg (28.0-33.3); Mean Corpuscular Volume 95.3 fL (83.0-100.0); Mean Platelet Volume 11.7 fL (9.4-12.4); Monocytes # 0.3 K/mcL (0.0-1.3); Monocytes % 8.4 %; Neutrophils # 2.3 K/mcL (1.6-8.9); Red Blood Count 2.15 M/mcL (4.19-5.50); Red Cell Distribution Width 13.4 % (11.5-14.5); Segmented Neutrophils % 72.6 %; White Blood Count 3.2 K/mcL (4.3-11.1)
[2019-09-03 07:14] LABS: Platelet Count 42 K/mcL (140-400)
[2019-09-03 07:29] LABS: Calcium 7.3 mg/dL (8.6-10.3); Potassium 4.2 mEq/L (3.5-5.1)
[2019-09-03] MEDS: Insulin LISPRO 300 UNITS/3 ML VIAL SQ SCH ×4 (07:47→20:09)
[2019-09-03] MEDS ORDERED: Lidocaine -MPF 2% 2 ML VIAL ONE (09:21)
[2019-09-03] MEDS ORDERED: *HR* Propofol 200 MG/20 ML VIAL IVP ONE (09:21)
[2019-09-03] MEDS ORDERED: 0.9 % Sodium Chloride 250 ML IVC PRN (11:25)
[2019-09-03] MEDS ORDERED: *HR* Heparin 10,000 UNIT/10 ML VIAL IV PRN (11:25)
[2019-09-03] MEDS: Famotidine 20 MG TABLET PO SCH (16:30)
[2019-09-03 16:54] LABS: Folate 14.1 ng/mL (3.0-16.0)
[2019-09-03 17:41] LABS: Uric Acid 1.7 mg/dL (2.3-7.6)
[2019-09-04 05:40] LABS: Mean Corpuscular Hemoglobin 31.5 pg (28.0-33.3); Red Cell Distribution Width 14.6 % (11.5-14.5)
[2019-09-04 05:43] LABS: Eosinophils % 1.3 %; Hematocrit 24.2 % (37.5-50.1); Hemoglobin 8.2 g/dL (12.9-16.9); Immature Granulocytes % 0.7 % (0-4); Immature Platelets 3.1 % (1.1-6.1); Lymphocytes # 0.5 K/mcL (0.6-4.6); Lymphocytes % 15.3 %; Mean Corpuscular HGB Conc 33.9 g/dL (31.6-35.5); Mean Corpuscular Volume 93.1 fL (83.0-100.0); Mean Platelet Volume 11.6 fL (9.4-12.4); Monocytes # 0.3 K/mcL (0.0-1.3); Monocytes % 10.1 %; Segmented Neutrophils % 72.6 %; White Blood Count 3.1 K/mcL (4.3-11.1)
[2019-09-04 05:48] LABS: Neutrophils # 2.3 K/mcL (1.6-8.9); Platelet Count 47 K/mcL (140-400)
[2019-09-04 05:57] LABS: Calcium 7.5 mg/dL (8.6-10.3)
[2019-09-04] MEDS: Famotidine 20 MG TABLET PO SCH ×2 (09:50→16:06)
[2019-09-04] MEDS: Insulin LISPRO 300 UNITS/3 ML VIAL SQ SCH ×3 (09:51→16:05)
[2019-09-04 14:30] LABS: Immature Granulocytes % 0.6 % (0-4); Red Cell Distribution Width 14.6 % (11.5-14.5)
[2019-09-04 14:32] LABS: Eosinophils # 0.1 K/mcL (0.0-0.6); Eosinophils % 1.5 %; Hematocrit 24.1 % (37.5-50.1); Hemoglobin 8.2 g/dL (12.9-16.9); Immature Platelets 2.8 % (1.1-6.1); Lymphocytes # 0.5 K/mcL (0.6-4.6); Lymphocytes % 14.6 %; Mean Corpuscular Hemoglobin 31.8 pg (28.0-33.3); Mean Corpuscular Volume 93.4 fL (83.0-100.0); Mean Platelet Volume 11.3 fL (9.4-12.4); Monocytes # 0.4 K/mcL (0.0-1.3); Monocytes % 10.7 %; Neutrophils # 2.4 K/mcL (1.6-8.9); Red Blood Count 2.58 M/mcL (4.19-5.50); Segmented Neutrophils % 72.6 %; White Blood Count 3.3 K/mcL (4.3-11.1)
[2019-09-04 14:35] LABS: Platelet Count 50 K/mcL (140-400)
[2019-09-04 15:25] VITALS: BP 136/56
[2019-09-06 11:43] LABS: ANA IgG by ELISA NONE DETECTED (None Detected)
[2019-09-08 01:34] LABS: Beta Globulin (PEP) 0.63 g/dL (0.48-1.10)
[2019-09-08 07:03] LABS: IFE Reflexed IFE Done
[2019-09-08 07:04] LABS: Immunoglobulin A 301 mg/dL (68-408); Immunoglobulin G 359 mg/dL (768-1632); Immunoglobulin M 40 mg/dL (35-263)
== END 2019-09-04 16:21 | disposition home or self-care (01) | DRG 291 ==
LOC: EMEROOARM 16:52 → 2ANU 16:52 → SUATTDRO 20:35 → 2ANU 21:14
PROVIDERS: ADMIT Internal Medicine; ATTEND Student in an Organized Health Care Education/Training Program
PROC: IRPERMA (2019-08-31 12:00)

== ENCOUNTER 2021-06-25 11:35 | Inpatient (IN) ==
[2021-06-25 14:22] LABS: Basophils % 0.4 %; Eosinophils # 0.2 K/mcL (0.0-0.6); Eosinophils % 1.9 %; Hematocrit 34.5 % (37.5-50.1); Hemoglobin 10.3 g/dL (12.9-16.9); Immature Granulocytes % 0.4 % (0-4); Lymphocytes # 0.9 K/mcL (0.6-4.6); Mean Corpuscular HGB Conc 29.9 g/dL (31.6-35.5); Mean Corpuscular Hemoglobin 28.6 pg (28.0-33.3); Mean Corpuscular Volume 95.8 fL (83.0-100.0); Mean Platelet Volume 11.3 fL (9.4-12.4); Monocytes # 0.7 K/mcL (0.0-1.3); Monocytes % 8.7 %; Neutrophils # 6.4 K/mcL (1.6-8.9); Platelet Count 175 K/mcL (140-400); Red Cell Distribution Width 14.1 % (11.5-14.5); Segmented Neutrophils % 77.6 %; White Blood Count 8.3 K/mcL (4.3-11.1)
[2021-06-25 14:34] LABS: INR 1.2; Prothrombin Time 13.9 Seconds (9.4-12.1)
[2021-06-25 14:48] LABS: Calcium 9.5 mg/dL (8.6-10.3); Troponin I 0.05 ng/mL (< 0.04)
[2021-06-25] MEDS ORDERED: Furosemide 20 MG/2 ML VIAL IVP ONE (14:51)
[2021-06-25] MEDS ORDERED: Ondansetron 4 MG/2 ML VIAL IVP PRN (15:46)
[2021-06-25] MEDS ORDERED: Naloxone 0.4 MG/ML INJ IVP PRN (15:46)
[2021-06-25] MEDS ORDERED: *HR* HYDROcodone/Acet 5/325 mg TABLET PO PRN (15:46)
[2021-06-25] MEDS ORDERED: Dextrose Gel 15 GM/37.5 ML TUBE PO PRN ×2 (15:50)
[2021-06-25] MEDS ORDERED: D5% in Water 1,000 ML IVC PRN (15:50)
[2021-06-25] MEDS ORDERED: Perflutren Lipid Microsphere 1.3 ML in 0.9 % Sodium Chloride 8.7 ML IVP PRN (15:51)
[2021-06-25] MEDS: Insulin LISPRO 300 UNITS/3 ML VIAL SUBQ SCH (17:45)
[2021-06-25] MEDS: Bumetanide 1 MG/4 ML VIAL IVP SCH (17:47)
[2021-06-26 01:48] LABS: Calcium 8.8 mg/dL (8.6-10.3); Magnesium 1.5 mg/dL (1.6-2.6); Phosphorous 3.1 mg/dL (2.7-4.5); Potassium 5.4 mEq/L (3.5-5.1)
[2021-06-26] MEDS: *HR* Dextrose 50 % in Water (Syg) 50 ML SYRINGE IVP PRN (04:01)
[2021-06-26] MEDS: Insulin LISPRO 300 UNITS/3 ML VIAL SUBQ SCH ×3 (09:10→15:44)
[2021-06-26] MEDS: allopurinoL 300 MG TABLET PO SCH (10:20)
[2021-06-26] MEDS: Aspirin Enteric Coated 81 MG Tablet PO SCH (10:21)
[2021-06-26] MEDS: Metoprolol XL (24 HR) Succ 25 MG TAB.ER.24H PO SCH (10:21)
[2021-06-26] MEDS: Bumetanide 1 MG/4 ML VIAL IVP SCH ×2 (10:22→19:01)
[2021-06-26 15:23] LABS: Bacteria,Urine Few per hpf (None-Few); Bilirubin,Urine Negative (Negative); Blood,Urine Negative (Negative); Clarity,Urine Turbid (Clear); Color,Urine Light-Yellow (Yellow); Glucose,Urine (UA) Normal (Normal); Ketones,Urine Negative (Negative); Leukocyte Esterase,Urine Large (Negative); Mucus,Urine Few per lpf (None-Few); Nitrite,Urine Negative (Negative); Protein,Urine Trace mg/dL (Neg-Trace); Squamous Epithelial Cell,Urine Few per hpf (None-Few); Urobilinogen,Urine Normal (Normal); WBC,Urine TNTC per hpf (0-3)
[2021-06-26 15:27] LABS: Protein/Creatinine Ratio,Urine 0.82 mg/mg (0.00-0.20)
[2021-06-26] MEDS: *HR* Heparin 5,000 UNIT/ML VIAL SQ SCH ×2 (16:19→20:41)
[2021-06-26] MEDS: Albumin 25% 25gram/100mL 25 GM/100 ML IV.SOLN IVPB SCH (16:19)
[2021-06-27 03:13] LABS: Basophils % 0.5 %; Eosinophils # 0.2 K/mcL (0.0-0.6); Eosinophils % 2.4 %; Hematocrit 29.8 % (37.5-50.1); Hemoglobin 9.1 g/dL (12.9-16.9); Immature Granulocytes % 0.3 % (0-4); Lymphocytes # 0.7 K/mcL (0.6-4.6); Mean Corpuscular HGB Conc 30.5 g/dL (31.6-35.5); Mean Corpuscular Hemoglobin 28.6 pg (28.0-33.3); Mean Corpuscular Volume 93.7 fL (83.0-100.0); Mean Platelet Volume 11.1 fL (9.4-12.4); Monocytes # 0.6 K/mcL (0.0-1.3); Monocytes % 9.1 %; Neutrophils # 4.7 K/mcL (1.6-8.9); Platelet Count 147 K/mcL (140-400); Red Blood Count 3.18 M/mcL (4.19-5.50); Red Cell Distribution Width 13.9 % (11.5-14.5); Segmented Neutrophils % 75.7 %; White Blood Count 6.2 K/mcL (4.3-11.1)
[2021-06-27 03:33] LABS: Calcium 8.6 mg/dL (8.6-10.3); Magnesium 1.7 mg/dL (1.6-2.6); Phosphorous 3.3 mg/dL (2.7-4.5); Potassium 5.1 mEq/L (3.5-5.1)
[2021-06-27] MEDS: *HR* Heparin 5,000 UNIT/ML VIAL SQ SCH ×3 (05:48→21:47)
[2021-06-27] MEDS: Insulin LISPRO 300 UNITS/3 ML VIAL SUBQ SCH ×3 (06:53→16:15)
[2021-06-27] MEDS: Albumin 25% 25gram/100mL 25 GM/100 ML IV.SOLN IVPB SCH ×2 (07:17→14:51)
[2021-06-27] MEDS: Metoprolol XL (24 HR) Succ 25 MG TAB.ER.24H PO SCH (07:18)
[2021-06-27] MEDS: Aspirin Enteric Coated 81 MG Tablet PO SCH (07:18)
[2021-06-27] MEDS: allopurinoL 300 MG TABLET PO SCH (07:18)
[2021-06-27] MEDS: Bumetanide 1 MG/4 ML VIAL IVP SCH ×2 (09:28→16:46)
[2021-06-28] MEDS: *HR* Heparin 5,000 UNIT/ML VIAL SQ SCH ×3 (05:11→20:08)
[2021-06-28] MEDS: *HR* Dextrose 50 % in Water (Syg) 50 ML SYRINGE IVP PRN ×2 (05:32→07:25)
[2021-06-28 06:15] LABS: Basophils % 0.6 %; Eosinophils # 0.2 K/mcL (0.0-0.6); Eosinophils % 4.1 %; Hematocrit 29.1 % (37.5-50.1); Hemoglobin 8.9 g/dL (12.9-16.9); Immature Granulocytes % 0.2 % (0-4); Lymphocytes # 0.7 K/mcL (0.6-4.6); Lymphocytes % 13.2 %; Mean Corpuscular HGB Conc 30.6 g/dL (31.6-35.5); Mean Corpuscular Hemoglobin 28.3 pg (28.0-33.3); Mean Corpuscular Volume 92.4 fL (83.0-100.0); Mean Platelet Volume 11.1 fL (9.4-12.4); Monocytes # 0.6 K/mcL (0.0-1.3); Monocytes % 11.6 %; Neutrophils # 3.6 K/mcL (1.6-8.9); Platelet Count 143 K/mcL (140-400); Red Blood Count 3.15 M/mcL (4.19-5.50); Red Cell Distribution Width 13.9 % (11.5-14.5); Segmented Neutrophils % 70.3 %; White Blood Count 5.1 K/mcL (4.3-11.1)
[2021-06-28 06:34] LABS: Calcium 8.8 mg/dL (8.6-10.3); Magnesium 1.6 mg/dL (1.6-2.6); Potassium 4.7 mEq/L (3.5-5.1)
[2021-06-28] MEDS: Insulin LISPRO 300 UNITS/3 ML VIAL SUBQ SCH (07:06)
[2021-06-28] MEDS: Albumin 25% 25gram/100mL 25 GM/100 ML IV.SOLN IVPB SCH (08:03)
[2021-06-28] MEDS: Aspirin Enteric Coated 81 MG Tablet PO SCH (10:10)
[2021-06-28] MEDS: Metoprolol XL (24 HR) Succ 25 MG TAB.ER.24H PO SCH (10:10)
[2021-06-28] MEDS: Bumetanide 1 MG/4 ML VIAL IVP SCH (10:23)
[2021-06-28] MEDS ORDERED: Lidocaine -MPF 2% 5 ML VIAL ONE (11:58)
[2021-06-28] MEDS ORDERED: *HR* Dextrose 50 % in Water (Syg) 50 ML SYRINGE IVP ONE (12:41)
[2021-06-28] MEDS ORDERED: *HR* Dextrose 50 % in Water (Syg) 50 ML SYRINGE ONE (12:45)
[2021-06-28] MEDS ORDERED: Artificial Tears SOLN 15 ML BOTTLE BOTH EYES PRN (12:47)
[2021-06-28 12:49] LABS: Red Blood Count 3.22 M/mcL (4.19-5.50); Red Cell Distribution Width 13.9 % (11.5-14.5)
[2021-06-28] MEDS: Midazolam HCl 50 MG/100 ML IV.SOLN IVC SCH ×2 (12:50→23:06)
[2021-06-28] MEDS: FentaNYL (PF) 1,000 MCG/100 ML IV.SOLN IVC SCH ×2 (12:50→20:21)
[2021-06-28 12:51] LABS: Basophils # 0.1 K/mcL (0.0-0.2); Basophils % 0.6 %; Eosinophils # 0.2 K/mcL (0.0-0.6); Eosinophils % 2.8 %; Hematocrit 30.7 % (37.5-50.1); Hemoglobin 9.3 g/dL (12.9-16.9); Immature Granulocytes % 3.1 % (0-4); Immature Platelets 3.8 % (1.1-6.1); Lymphocytes % 38.8 %; Mean Corpuscular HGB Conc 30.3 g/dL (31.6-35.5); Mean Corpuscular Hemoglobin 28.9 pg (28.0-33.3); Mean Corpuscular Volume 95.3 fL (83.0-100.0); Monocytes # 0.6 K/mcL (0.0-1.3); Monocytes % 7.9 %; Neutrophils # 3.6 K/mcL (1.6-8.9); Nucleated Red Blood Cells 0.5 /100 WBC (0); Platelet Count 120 K/mcL (140-400); Segmented Neutrophils % 46.8 %; White Blood Count 7.7 K/mcL (4.3-11.1)
[2021-06-28 13:37] LABS: Troponin I 0.05 ng/mL (< 0.04)
[2021-06-28 13:38] LABS: Albumin 3.6 g/dL (3.5-5.7); Albumin/Globulin Ratio 1.3 (1.1-2.2); Bilirubin,Total 0.8 mg/dL (0.3-1.0); Calcium 7.9 mg/dL (8.6-10.3); Globulin 2.8 g/dL (2.4-3.5); Magnesium 1.6 mg/dL (1.6-2.6); Potassium 3.9 mEq/L (3.5-5.1); Total Protein 6.4 g/dL (6.4-8.9)
[2021-06-28] MEDS ORDERED: Perflutren Lipid Microsphere 1.3 ML in 0.9 % Sodium Chloride 8.7 ML IVP PRN (14:14)
[2021-06-28 14:25] LABS: Basophils % 0.3 %; Eosinophils # 0.2 K/mcL (0.0-0.6); Eosinophils % 1.8 %; Hematocrit 30.1 % (37.5-50.1); Hemoglobin 9.2 g/dL (12.9-16.9); Lymphocytes # 0.4 K/mcL (0.6-4.6); Lymphocytes % 4.2 %; Mean Corpuscular HGB Conc 30.6 g/dL (31.6-35.5); Mean Platelet Volume 11.1 fL (9.4-12.4); Monocytes # 0.6 K/mcL (0.0-1.3); Monocytes % 6.1 %; Neutrophils # 8.5 K/mcL (1.6-8.9); Platelet Count 155 K/mcL (140-400); Red Blood Count 3.17 M/mcL (4.19-5.50); Red Cell Distribution Width 13.9 % (11.5-14.5); Segmented Neutrophils % 86.6 %; White Blood Count 9.8 K/mcL (4.3-11.1)
[2021-06-28 14:27] LABS: VBG Ionized Calcium 1.21 mmol/L (1.15-1.35)
[2021-06-28 14:36] LABS: INR 1.3; Prothrombin Time 14.6 Seconds (9.4-12.1)
[2021-06-28 14:39] LABS: Activated Partial Thrombo Time 30.7 Seconds (26.0-36.0)
[2021-06-28 14:51] LABS: Albumin 3.6 g/dL (3.5-5.7); Albumin/Globulin Ratio 1.1 (1.1-2.2); Bilirubin,Direct 0.3 mg/dL (0.0-0.2); Bilirubin,Indirect 0.5 mg/dL (0.0-1.0); Bilirubin,Total 0.8 mg/dL (0.3-1.0); Calcium 8.6 mg/dL (8.6-10.3); Globulin 3.2 g/dL (2.4-3.5); Magnesium 1.6 mg/dL (1.6-2.6); Phosphorous 4.2 mg/dL (2.7-4.5); Potassium 5.1 mEq/L (3.5-5.1); Total Protein 6.8 g/dL (6.4-8.9); Troponin I 0.06 ng/mL (< 0.04)
[2021-06-28 16:17] LABS: Adenovirus Not Detected (Not Detect); Bordetella Pertussis Not Detected (Not Detect); Chlamydophila pneumoniae Not Detected (Not Detect); Coronavirus 229E Not Detected (Not Detect); Coronavirus HKU1 Not Detected (Not Detect); Coronavirus NL63 Not Detected (Not Detect); Coronavirus OC43 Not Detected (Not Detect); Human Metapneumovirus Not Detected (Not Detect); Human Rhinovirus/Enterovirus Not Detected (Not Detect); Influenza A Subtype 2009 H1 Not Detected (Not Detect); Influenza B Not Detected (Not Detect); Mycoplasma pneumoniae Not Detected (Not Detect); Parainfluenza Virus 1 Not Detected (Not Detect); Parainfluenza Virus 2 Not Detected (Not Detect); Parainfluenza Virus 3 Not Detected (Not Detect); Parainfluenza Virus 4 Not Detected (Not Detect); Respiratory Syncytial Virus Not Detected (Not Detect); SARS-CoV-2 Not Detected (Not Detect)
[2021-06-28 16:32] LABS: ABG Base Excess -6 mEq/L (-2 to 3); ABG HCO3 21 mEq/L (21-27); ABG Oxygen Saturation 87 % (95-98); ABG PCO2 43 mmHg (35-45); ABG PH 7.29 pH Units (7.32-7.45); ABG PO2 59 mmHg (85-104); ABG TCO2 22 mEq/L (20-26); Blood Gas VT 500 cc
[2021-06-28] MEDS: Acetaminophen 325 MG TABLET PO SCH ×2 (17:58→23:09)
[2021-06-28] MEDS: Artificial Tears SOLN 15 ML BOTTLE BOTH EYES SCH ×3 (18:05→23:08)
[2021-06-28] MEDS: Norepinephrine 4 MG/254 ML IV.SOLN IVC SCH ×3 (19:47→23:09)
[2021-06-28] MEDS: Chlorhexidine Rinse 15 ML MOUTHWASH MM SCH (20:08)
[2021-06-29] MEDS: Artificial Tears SOLN 15 ML BOTTLE BOTH EYES SCH ×6 (02:37→23:11)
[2021-06-29] MEDS: FentaNYL (PF) 1,000 MCG/100 ML IV.SOLN IVC SCH ×2 (02:37→18:34)
[2021-06-29 03:17] LABS: VBG Ionized Calcium 1.19 mmol/L (1.15-1.35)
[2021-06-29 03:18] LABS: Basophils % 0.2 %; Eosinophils % 0.3 %; Hematocrit 32.6 % (37.5-50.1); Hemoglobin 9.7 g/dL (12.9-16.9); Immature Granulocytes % 0.3 % (0-4); Lymphocytes # 0.5 K/mcL (0.6-4.6); Lymphocytes % 3.4 %; Mean Corpuscular HGB Conc 29.8 g/dL (31.6-35.5); Mean Corpuscular Hemoglobin 28.7 pg (28.0-33.3); Mean Corpuscular Volume 96.4 fL (83.0-100.0); Mean Platelet Volume 10.4 fL (9.4-12.4); Monocytes # 1.2 K/mcL (0.0-1.3); Monocytes % 8.4 %; Platelet Count 167 K/mcL (140-400); Red Blood Count 3.38 M/mcL (4.19-5.50); Red Cell Distribution Width 14.1 % (11.5-14.5); Segmented Neutrophils % 87.4 %
[2021-06-29 03:20] LABS: Neutrophils # 12.9 K/mcL (1.6-8.9); White Blood Count 14.8 K/mcL (4.3-11.1)
[2021-06-29 03:34] LABS: Albumin 3.9 g/dL (3.5-5.7); Albumin/Globulin Ratio 1.1 (1.1-2.2); Bilirubin,Direct 0.3 mg/dL (0.0-0.2); Bilirubin,Indirect 0.6 mg/dL (0.0-1.0); Bilirubin,Total 0.9 mg/dL (0.3-1.0); Calcium 8.8 mg/dL (8.6-10.3); Globulin 3.4 g/dL (2.4-3.5); Magnesium 1.9 mg/dL (1.6-2.6); Phosphorous 4.4 mg/dL (2.7-4.5); Potassium 6.3 mEq/L (3.5-5.1); Total Protein 7.3 g/dL (6.4-8.9)
[2021-06-29] MEDS: Acetaminophen 325 MG TABLET PO SCH ×3 (03:54→15:50)
[2021-06-29 04:10] LABS: INR 1.2; Prothrombin Time 13.8 Seconds (9.4-12.1)
[2021-06-29 04:12] LABS: Activated Partial Thrombo Time 31.9 Seconds (26.0-36.0)
[2021-06-29 04:28] LABS: ABG Base Excess -5 mEq/L (-2 to 3); ABG HCO3 21 mEq/L (21-27); ABG Oxygen Saturation 97 % (95-98); ABG PCO2 43 mmHg (35-45); ABG PO2 96 mmHg (85-104); ABG TCO2 22 mEq/L (20-26); Blood Gas Modality ASSIST CONTROL; Blood Gas VT 500 cc
[2021-06-29] MEDS: *HR* Heparin 5,000 UNIT/ML VIAL SQ SCH ×3 (05:43→23:11)
[2021-06-29] MEDS: Metoprolol XL (24 HR) Succ 25 MG TAB.ER.24H PO SCH (07:54)
[2021-06-29] MEDS: Aspirin Enteric Coated 81 MG Tablet PO SCH (08:00)
[2021-06-29] MEDS: Bumetanide 1 MG TABLET PO SCH (08:00)
[2021-06-29] MEDS: Norepinephrine 4 MG/254 ML IV.SOLN IVC SCH ×2 (08:00→19:29)
[2021-06-29] MEDS: Pantoprazole 40 MG VIAL IVP SCH (08:03)
[2021-06-29] MEDS: Chlorhexidine Rinse 15 ML MOUTHWASH MM SCH ×2 (08:03→19:29)
[2021-06-29] MEDS: SODIUM ZIRCONIUM CYCLOSILICATE 5 GM POWD.PACK PO SCH ×2 (09:29→09:49)
[2021-06-29] MEDS ORDERED: 0.9 % Sodium Chloride 250 ML IVC PRN (11:38)
[2021-06-29] MEDS ORDERED: 0.9 % Sodium Chloride 1,000 ML PRIME SCH (11:45)
[2021-06-29 13:12] LABS: Hepatitis B Surface Antibody 17.14 mIU/mL
[2021-06-29 13:21] LABS: Hepatitis B Surface Antigen Nonreactive (Nonreactive)
[2021-06-29 19:57] LABS: Calcium 9.2 mg/dL (8.6-10.3); Potassium 4.7 mEq/L (3.5-5.1)
[2021-06-30] MEDS: Midazolam HCl 50 MG/100 ML IV.SOLN IVC SCH ×2 (01:03→13:41)
[2021-06-30] MEDS: Acetaminophen 325 MG TABLET PO SCH ×5 (03:35→23:23)
[2021-06-30] MEDS: Artificial Tears SOLN 15 ML BOTTLE BOTH EYES SCH ×6 (03:35→23:23)
[2021-06-30] MEDS: Norepinephrine 4 MG/254 ML IV.SOLN IVC SCH ×3 (03:44→22:16)
[2021-06-30 04:02] LABS: ABG Base Excess -3 mEq/L (-2 to 3); ABG HCO3 24 mEq/L (21-27); ABG Oxygen Saturation 92 % (95-98); ABG PCO2 49 mmHg (35-45); ABG PO2 70 mmHg (85-104); ABG TCO2 26 mEq/L (20-26); Blood Gas VT 500 cc
[2021-06-30 04:32] LABS: Basophils % 0.3 %; Eosinophils % 0.3 %; Hematocrit 30.6 % (37.5-50.1); Hemoglobin 9.2 g/dL (12.9-16.9); Immature Granulocytes % 0.4 % (0-4); Lymphocytes # 0.5 K/mcL (0.6-4.6); Lymphocytes % 4.5 %; Mean Corpuscular HGB Conc 30.1 g/dL (31.6-35.5); Mean Corpuscular Hemoglobin 28.9 pg (28.0-33.3); Mean Corpuscular Volume 96.2 fL (83.0-100.0); Mean Platelet Volume 11.3 fL (9.4-12.4); Monocytes # 1.2 K/mcL (0.0-1.3); Monocytes % 10.1 %; Neutrophils # 10.1 K/mcL (1.6-8.9); Platelet Count 140 K/mcL (140-400); Red Blood Count 3.18 M/mcL (4.19-5.50); Red Cell Distribution Width 13.9 % (11.5-14.5); Segmented Neutrophils % 84.4 %; White Blood Count 11.9 K/mcL (4.3-11.1)
[2021-06-30 04:32] LABS: INR 1.4; Prothrombin Time 15.8 Seconds (9.4-12.1)
[2021-06-30] MEDS: FentaNYL (PF) 1,000 MCG/100 ML IV.SOLN IVC SCH (04:34)
[2021-06-30 05:02] LABS: Bilirubin,Direct 0.4 mg/dL (0.0-0.2); Bilirubin,Indirect 0.7 mg/dL (0.0-1.0); Bilirubin,Total 1.1 mg/dL (0.3-1.0); Magnesium 1.8 mg/dL (1.6-2.6); Phosphorous 4.4 mg/dL (2.7-4.5); Potassium 5.1 mEq/L (3.5-5.1)
[2021-06-30 05:03] LABS: Albumin 3.6 g/dL (3.5-5.7); Albumin/Globulin Ratio 1.1 (1.1-2.2); Globulin 3.3 g/dL (2.4-3.5); Total Protein 6.9 g/dL (6.4-8.9)
[2021-06-30] MEDS: *HR* Heparin 5,000 UNIT/ML VIAL SQ SCH ×3 (05:10→20:25)
[2021-06-30] MEDS: Metoprolol XL (24 HR) Succ 25 MG TAB.ER.24H PO SCH (07:27)
[2021-06-30] MEDS: Bumetanide 1 MG TABLET PO SCH (07:29)
[2021-06-30] MEDS: Aspirin 81 MG TAB.CHEW PO SCH (07:29)
[2021-06-30] MEDS: Pantoprazole 40 MG VIAL IVP SCH (07:29)
[2021-06-30] MEDS: Chlorhexidine Rinse 15 ML MOUTHWASH MM SCH ×2 (07:29→20:16)
[2021-06-30] MEDS ORDERED: 0.9 % Sodium Chloride 250 ML IVC PRN (07:54)
[2021-06-30] MEDS: Dexmedetomidine HCl 400 MCG/100 ML MLS IVC SCH (18:45)
[2021-06-30 21:47] LABS: Potassium 4.2 mEq/L (3.5-5.1)
[2021-07-01 03:03] LABS: Basophils % 0.4 %; Eosinophils # 0.1 K/mcL (0.0-0.6); Eosinophils % 1.7 %; Hematocrit 28.8 % (37.5-50.1); Hemoglobin 8.8 g/dL (12.9-16.9); Immature Granulocytes % 0.4 % (0-4); Lymphocytes # 0.6 K/mcL (0.6-4.6); Lymphocytes % 7.7 %; Mean Corpuscular HGB Conc 30.6 g/dL (31.6-35.5); Mean Corpuscular Hemoglobin 28.7 pg (28.0-33.3); Mean Corpuscular Volume 93.8 fL (83.0-100.0); Mean Platelet Volume 11.4 fL (9.4-12.4); Monocytes # 0.8 K/mcL (0.0-1.3); Monocytes % 10.1 %; Neutrophils # 6.6 K/mcL (1.6-8.9); Platelet Count 126 K/mcL (140-400); Red Blood Count 3.07 M/mcL (4.19-5.50); Red Cell Distribution Width 13.7 % (11.5-14.5); Segmented Neutrophils % 79.7 %; White Blood Count 8.3 K/mcL (4.3-11.1)
[2021-07-01 03:08] LABS: VBG Ionized Calcium 1.17 mmol/L (1.15-1.35)
[2021-07-01 03:13] LABS: INR 1.4; Prothrombin Time 15.8 Seconds (9.4-12.1)
[2021-07-01 03:16] LABS: Activated Partial Thrombo Time 30.7 Seconds (26.0-36.0)
[2021-07-01 03:17] LABS: Albumin 3.3 g/dL (3.5-5.7); Bilirubin,Direct 0.5 mg/dL (0.0-0.2); Bilirubin,Indirect 0.8 mg/dL (0.0-1.0); Bilirubin,Total 1.3 mg/dL (0.3-1.0); Globulin 3.2 g/dL (2.4-3.5); Magnesium 2.1 mg/dL (1.6-2.6); Phosphorous 2.1 mg/dL (2.7-4.5); Potassium 4.1 mEq/L (3.5-5.1); Total Protein 6.5 g/dL (6.4-8.9)
[2021-07-01] MEDS: Dexmedetomidine HCl 400 MCG/100 ML MLS IVC SCH (03:21)
[2021-07-01 04:01] LABS: ABG Base Excess 5 mEq/L (-2 to 3); ABG HCO3 29 mEq/L (21-27); ABG Oxygen Saturation 94 % (95-98); ABG PCO2 41 mmHg (35-45); ABG PH 7.45 pH Units (7.32-7.45); ABG PO2 69 mmHg (85-104); ABG TCO2 30 mEq/L (20-26); Blood Gas VT 500 cc
[2021-07-01] MEDS: Artificial Tears SOLN 15 ML BOTTLE BOTH EYES SCH ×5 (04:36→20:07)
[2021-07-01] MEDS: *HR* Heparin 5,000 UNIT/ML VIAL SQ SCH ×3 (04:36→20:07)
[2021-07-01] MEDS: Acetaminophen 325 MG TABLET PO SCH ×2 (04:37→12:00)
[2021-07-01] MEDS: Chlorhexidine Rinse 15 ML MOUTHWASH MM SCH ×2 (08:48→20:07)
[2021-07-01] MEDS: Bumetanide 1 MG TABLET PO SCH (08:48)
[2021-07-01] MEDS: Pantoprazole 40 MG VIAL IVP SCH (08:48)
[2021-07-01] MEDS: Aspirin 81 MG TAB.CHEW PO SCH (08:48)
[2021-07-01] MEDS: Metoprolol XL (24 HR) Succ 25 MG TAB.ER.24H PO SCH (08:49)
[2021-07-02] MEDS: Artificial Tears SOLN 15 ML BOTTLE BOTH EYES SCH ×6 (00:14→11:15)
[2021-07-02] MEDS: *HR* Heparin 5,000 UNIT/ML VIAL SQ SCH ×3 (05:06→21:58)
[2021-07-02 05:43] LABS: Hematocrit 28.2 % (37.5-50.1); Hemoglobin 8.6 g/dL (12.9-16.9); Immature Granulocytes % 0.3 % (0-4); Lymphocytes % 8.5 %; Mean Corpuscular HGB Conc 30.5 g/dL (31.6-35.5); Mean Corpuscular Hemoglobin 28.3 pg (28.0-33.3); Mean Corpuscular Volume 92.8 fL (83.0-100.0); Mean Platelet Volume 10.6 fL (9.4-12.4); Monocytes % 8.6 %; Platelet Count 145 K/mcL (140-400); Red Blood Count 3.04 M/mcL (4.19-5.50); Red Cell Distribution Width 13.7 % (11.5-14.5); Segmented Neutrophils % 77.9 %; White Blood Count 7.8 K/mcL (4.3-11.1)
[2021-07-02 05:44] LABS: Basophils % 0.3 %; Eosinophils # 0.3 K/mcL (0.0-0.6); Eosinophils % 4.4 %; Lymphocytes # 0.7 K/mcL (0.6-4.6); Monocytes # 0.7 K/mcL (0.0-1.3); Neutrophils # 6.1 K/mcL (1.6-8.9)
[2021-07-02 05:48] LABS: INR 1.3; Prothrombin Time 14.4 Seconds (9.4-12.1)
[2021-07-02 05:51] LABS: Activated Partial Thrombo Time 30.2 Seconds (26.0-36.0)
[2021-07-02 05:52] LABS: VBG Ionized Calcium 1.17 mmol/L (1.15-1.35)
[2021-07-02 06:08] LABS: Albumin 3.2 g/dL (3.5-5.7); Bilirubin,Direct 0.5 mg/dL (0.0-0.2); Bilirubin,Indirect 0.7 mg/dL (0.0-1.0); Bilirubin,Total 1.2 mg/dL (0.3-1.0); Calcium 9.2 mg/dL (8.6-10.3); Globulin 3.2 g/dL (2.4-3.5); Magnesium 2.1 mg/dL (1.6-2.6); Phosphorous 2.1 mg/dL (2.7-4.5); Potassium 3.7 mEq/L (3.5-5.1); Total Protein 6.4 g/dL (6.4-8.9)
[2021-07-02] MEDS: Norepinephrine 4 MG/254 ML IV.SOLN IVC SCH ×2 (07:16→07:19)
[2021-07-02] MEDS: Midazolam HCl 50 MG/100 ML IV.SOLN IVC SCH (07:17)
[2021-07-02] MEDS: Dexmedetomidine HCl 400 MCG/100 ML MLS IVC SCH (07:18)
[2021-07-02] MEDS: Chlorhexidine Rinse 15 ML MOUTHWASH MM SCH ×2 (07:19→21:59)
[2021-07-02] MEDS: Aspirin 81 MG TAB.CHEW PO SCH (08:07)
[2021-07-02] MEDS: Pantoprazole 40 MG VIAL IVP SCH (08:08)
[2021-07-02] MEDS: Bumetanide 1 MG TABLET PO SCH (08:08)
[2021-07-02] MEDS ORDERED: Naloxone 0.4 MG/ML INJ IVP PRN (10:03)
[2021-07-02] MEDS ORDERED: *HR* Dextrose 50 % in Water (Syg) 50 ML SYRINGE IVP PRN (10:03)
[2021-07-02] MEDS ORDERED: 0.9 % Sodium Chloride 1,000 ML PRIME SCH (10:03)
[2021-07-02] MEDS ORDERED: D5% in Water 1,000 ML IVC PRN (10:03)
[2021-07-02] MEDS ORDERED: Artificial Tears SOLN 15 ML BOTTLE BOTH EYES PRN (10:03)
[2021-07-02] MEDS ORDERED: Dextrose Gel 15 GM/37.5 ML TUBE PO PRN ×2 (10:03)
[2021-07-03 02:18] LABS: Basophils % 0.5 %; Eosinophils # 0.2 K/mcL (0.0-0.6); Eosinophils % 3.3 %; Hematocrit 29.5 % (37.5-50.1); Hemoglobin 9.3 g/dL (12.9-16.9); Immature Granulocytes % 0.3 % (0-4); Lymphocytes # 0.7 K/mcL (0.6-4.6); Lymphocytes % 10.3 %; Mean Corpuscular HGB Conc 31.5 g/dL (31.6-35.5); Mean Corpuscular Hemoglobin 29.1 pg (28.0-33.3); Mean Corpuscular Volume 92.2 fL (83.0-100.0); Mean Platelet Volume 10.7 fL (9.4-12.4); Monocytes # 0.8 K/mcL (0.0-1.3); Monocytes % 11.8 %; Neutrophils # 4.9 K/mcL (1.6-8.9); Platelet Count 148 K/mcL (140-400); Red Cell Distribution Width 13.5 % (11.5-14.5); Segmented Neutrophils % 73.8 %; White Blood Count 6.6 K/mcL (4.3-11.1)
[2021-07-03 02:24] LABS: VBG Ionized Calcium 1.09 mmol/L (1.15-1.35)
[2021-07-03 02:32] LABS: INR 1.3; Prothrombin Time 14.1 Seconds (9.4-12.1)
[2021-07-03 02:34] LABS: Activated Partial Thrombo Time 31.5 Seconds (26.0-36.0)
[2021-07-03 02:40] LABS: Albumin 3.2 g/dL (3.5-5.7); Bilirubin,Direct 0.5 mg/dL (0.0-0.2); Bilirubin,Indirect 0.8 mg/dL (0.0-1.0); Bilirubin,Total 1.3 mg/dL (0.3-1.0); Calcium 8.8 mg/dL (8.6-10.3); Globulin 3.1 g/dL (2.4-3.5); Phosphorous 2.2 mg/dL (2.7-4.5); Potassium 3.5 mEq/L (3.5-5.1); Total Protein 6.3 g/dL (6.4-8.9)
[2021-07-03] MEDS: *HR* Heparin 5,000 UNIT/ML VIAL SQ SCH ×3 (06:39→21:05)
[2021-07-03] MEDS: Chlorhexidine Rinse 15 ML MOUTHWASH MM SCH (08:57)
[2021-07-03] MEDS: allopurinoL 300 MG TABLET PO SCH (08:57)
[2021-07-03] MEDS: Aspirin 81 MG TAB.CHEW PO SCH (08:58)
[2021-07-03] MEDS ORDERED: Pantoprazole 40 MG VIAL IVP SCH (09:00)
[2021-07-03] MEDS ORDERED: Bumetanide 1 MG TABLET PO SCH (09:00)
[2021-07-03] MEDS: Metoprolol XL (24 HR) Succ 25 MG TAB.ER.24H PO SCH (14:24)
[2021-07-03] MEDS: Bumetanide 1 MG TABLET PO SCH (21:04)
[2021-07-04 01:59] LABS: Basophils % 0.3 %; Eosinophils # 0.3 K/mcL (0.0-0.6); Eosinophils % 4.2 %; Hematocrit 30.1 % (37.5-50.1); Hemoglobin 9.3 g/dL (12.9-16.9); Immature Granulocytes % 0.3 % (0-4); Lymphocytes # 0.8 K/mcL (0.6-4.6); Lymphocytes % 11.6 %; Mean Corpuscular HGB Conc 30.9 g/dL (31.6-35.5); Mean Corpuscular Hemoglobin 28.4 pg (28.0-33.3); Mean Corpuscular Volume 91.8 fL (83.0-100.0); Monocytes # 0.9 K/mcL (0.0-1.3); Monocytes % 13.6 %; Neutrophils # 4.9 K/mcL (1.6-8.9); Platelet Count 154 K/mcL (140-400); Red Blood Count 3.28 M/mcL (4.19-5.50); Red Cell Distribution Width 13.6 % (11.5-14.5); White Blood Count 6.9 K/mcL (4.3-11.1)
[2021-07-04 02:04] LABS: VBG Ionized Calcium 1.13 mmol/L (1.15-1.35)
[2021-07-04 02:09] LABS: INR 1.3; Prothrombin Time 14.4 Seconds (9.4-12.1)
[2021-07-04 02:11] LABS: Activated Partial Thrombo Time 31.7 Seconds (26.0-36.0)
[2021-07-04 02:19] LABS: Albumin 3.1 g/dL (3.5-5.7); Albumin/Globulin Ratio 0.9 (1.1-2.2); Bilirubin,Direct 0.4 mg/dL (0.0-0.2); Bilirubin,Indirect 0.7 mg/dL (0.0-1.0); Bilirubin,Total 1.1 mg/dL (0.3-1.0); Calcium 8.8 mg/dL (8.6-10.3); Globulin 3.3 g/dL (2.4-3.5); Magnesium 1.9 mg/dL (1.6-2.6); Phosphorous 2.9 mg/dL (2.7-4.5); Potassium 3.6 mEq/L (3.5-5.1); Total Protein 6.4 g/dL (6.4-8.9)
[2021-07-04] MEDS: *HR* Heparin 5,000 UNIT/ML VIAL SQ SCH ×3 (06:31→19:45)
[2021-07-04] MEDS: Metoprolol XL (24 HR) Succ 25 MG TAB.ER.24H PO SCH (08:01)
[2021-07-04] MEDS: Bumetanide 1 MG TABLET PO SCH ×2 (08:01→19:45)
[2021-07-04] MEDS: allopurinoL 300 MG TABLET PO SCH (08:01)
[2021-07-04] MEDS: Aspirin 81 MG TAB.CHEW PO SCH (08:01)
[2021-07-05 02:53] LABS: VBG Ionized Calcium 1.16 mmol/L (1.15-1.35)
[2021-07-05 03:00] LABS: INR 1.3
[2021-07-05 03:03] LABS: Activated Partial Thrombo Time 32.1 Seconds (26.0-36.0)
[2021-07-05 03:19] LABS: Albumin 3.1 g/dL (3.5-5.7); Albumin/Globulin Ratio 0.9 (1.1-2.2); Bilirubin,Direct 0.3 mg/dL (0.0-0.2); Bilirubin,Indirect 0.5 mg/dL (0.0-1.0); Bilirubin,Total 0.8 mg/dL (0.3-1.0); Calcium 8.8 mg/dL (8.6-10.3); Globulin 3.3 g/dL (2.4-3.5); Magnesium 1.8 mg/dL (1.6-2.6); Phosphorous 3.1 mg/dL (2.7-4.5); Potassium 3.6 mEq/L (3.5-5.1); Total Protein 6.4 g/dL (6.4-8.9)
[2021-07-05] MEDS: *HR* Heparin 5,000 UNIT/ML VIAL SQ SCH ×3 (05:39→20:20)
[2021-07-05] MEDS: Bumetanide 1 MG TABLET PO SCH ×2 (08:08→20:20)
[2021-07-05] MEDS: Aspirin 81 MG TAB.CHEW PO SCH (08:08)
[2021-07-05] MEDS: Metoprolol XL (24 HR) Succ 25 MG TAB.ER.24H PO SCH (08:09)
[2021-07-05] MEDS: allopurinoL 300 MG TABLET PO SCH (08:09)
[2021-07-06 04:52] LABS: Calcium 8.9 mg/dL (8.6-10.3); Potassium 3.9 mEq/L (3.5-5.1)
[2021-07-06] MEDS: *HR* Heparin 5,000 UNIT/ML VIAL SQ SCH ×3 (05:11→20:36)
[2021-07-06] MEDS: Bumetanide 1 MG TABLET PO SCH ×2 (09:13→20:36)
[2021-07-06] MEDS: allopurinoL 300 MG TABLET PO SCH (09:13)
[2021-07-06] MEDS: Metoprolol XL (24 HR) Succ 25 MG TAB.ER.24H PO SCH (09:13)
[2021-07-06] MEDS: Aspirin 81 MG TAB.CHEW PO SCH (09:13)
[2021-07-06] MEDS: Insulin LISPRO 300 UNITS/3 ML VIAL SUBQ SCH ×3 (09:14→18:10)
[2021-07-07 02:41] LABS: Calcium 8.9 mg/dL (8.6-10.3)
[2021-07-07] MEDS: *HR* Heparin 5,000 UNIT/ML VIAL SQ SCH ×3 (05:56→21:49)
[2021-07-07] MEDS: Metoprolol XL (24 HR) Succ 25 MG TAB.ER.24H PO SCH (09:22)
[2021-07-07] MEDS: Bumetanide 1 MG TABLET PO SCH ×2 (09:22→21:48)
[2021-07-07] MEDS: allopurinoL 300 MG TABLET PO SCH (09:22)
[2021-07-07] MEDS: Aspirin 81 MG TAB.CHEW PO SCH (09:22)
[2021-07-07] MEDS: Insulin LISPRO 300 UNITS/3 ML VIAL SUBQ SCH ×3 (09:43→16:58)
[2021-07-08 01:39] LABS: Calcium 9.1 mg/dL (8.6-10.3); Potassium 4.1 mEq/L (3.5-5.1)
[2021-07-08] MEDS: *HR* Heparin 5,000 UNIT/ML VIAL SQ SCH ×3 (07:06→20:37)
[2021-07-08] MEDS: Insulin LISPRO 300 UNITS/3 ML VIAL SUBQ SCH ×3 (07:11→16:42)
[2021-07-08] MEDS: Aspirin 81 MG TAB.CHEW PO SCH (08:08)
[2021-07-08] MEDS: allopurinoL 300 MG TABLET PO SCH (08:08)
[2021-07-08] MEDS: Bumetanide 1 MG TABLET PO SCH ×2 (08:08→20:37)
[2021-07-08] MEDS: Metoprolol XL (24 HR) Succ 25 MG TAB.ER.24H PO SCH (08:08)
[2021-07-09 01:41] LABS: Calcium 9.2 mg/dL (8.6-10.3); Potassium 4.4 mEq/L (3.5-5.1)
[2021-07-09] MEDS: *HR* Heparin 5,000 UNIT/ML VIAL SQ SCH ×3 (06:19→20:39)
[2021-07-09] MEDS: Insulin LISPRO 300 UNITS/3 ML VIAL SUBQ SCH ×3 (07:08→15:37)
[2021-07-09] MEDS: Bumetanide 1 MG TABLET PO SCH ×2 (07:54→20:39)
[2021-07-09] MEDS: allopurinoL 300 MG TABLET PO SCH (07:54)
[2021-07-09] MEDS: Metoprolol XL (24 HR) Succ 25 MG TAB.ER.24H PO SCH (07:54)
[2021-07-09] MEDS: Aspirin 81 MG TAB.CHEW PO SCH (07:54)
[2021-07-10] MEDS: *HR* Heparin 5,000 UNIT/ML VIAL SQ SCH (05:25)
[2021-07-10 07:48] VITALS: BP 125/70; PULSE 94; TEMP 98.4; O2SAT 99
[2021-07-10 08:11] LABS: Calcium 9.3 mg/dL (8.6-10.3); Potassium 4.5 mEq/L (3.5-5.1)
[2021-07-10] MEDS: Aspirin 81 MG TAB.CHEW PO SCH (08:20)
[2021-07-10] MEDS: Metoprolol XL (24 HR) Succ 25 MG TAB.ER.24H PO SCH (08:20)
[2021-07-10] MEDS: allopurinoL 300 MG TABLET PO SCH (08:20)
[2021-07-10] MEDS: Bumetanide 1 MG TABLET PO SCH (08:20)
[2021-07-10] MEDS: Insulin LISPRO 300 UNITS/3 ML VIAL SUBQ SCH ×2 (08:21→12:36)
[2021-07-10 09:38] LABS: Adenovirus Not Detected (Not Detect); Bordetella Pertussis Not Detected (Not Detect); Chlamydophila pneumoniae Not Detected (Not Detect); Coronavirus 229E Not Detected (Not Detect); Coronavirus HKU1 Not Detected (Not Detect); Coronavirus NL63 Not Detected (Not Detect); Coronavirus OC43 Not Detected (Not Detect); Human Metapneumovirus Not Detected (Not Detect); Human Rhinovirus/Enterovirus Not Detected (Not Detect); Influenza A Subtype 2009 H1 Not Detected (Not Detect); Influenza B Not Detected (Not Detect); Mycoplasma pneumoniae Not Detected (Not Detect); Parainfluenza Virus 1 Not Detected (Not Detect); Parainfluenza Virus 2 Not Detected (Not Detect); Parainfluenza Virus 3 Not Detected (Not Detect); Parainfluenza Virus 4 Not Detected (Not Detect); Respiratory Syncytial Virus Not Detected (Not Detect); SARS-CoV-2 Not Detected (Not Detect)
== END 2021-07-10 12:56 | DRG 280 ==
LOC: EMEROOARM 11:35 → 2ANU 11:35 → SUATTDRO 15:51 → 2ANU 17:01 → SUATTDRO 06-27 14:27 → ICNU 06-28 12:29 → 2ANU 07-02 15:14
PROVIDERS: ADMIT Internal Medicine; ATTEND Student in an Organized Health Care Education/Training Program
PROC: ENDOEBX (2021-06-28 13:50)

== ENCOUNTER 2021-08-07 12:39 | Inpatient (IN) ==
[2021-08-07 13:54] LABS: Basophils % 0.5 %; Eosinophils # 0.1 K/mcL (0.0-0.6); Eosinophils % 2.2 %; Hematocrit 30.5 % (37.5-50.1); Hemoglobin 9.2 g/dL (12.9-16.9); Immature Granulocytes % 0.2 % (0-4); Lymphocytes # 0.5 K/mcL (0.6-4.6); Lymphocytes % 8.5 %; Mean Corpuscular HGB Conc 30.2 g/dL (31.6-35.5); Mean Corpuscular Hemoglobin 28.4 pg (28.0-33.3); Mean Corpuscular Volume 94.1 fL (83.0-100.0); Mean Platelet Volume 11.2 fL (9.4-12.4); Monocytes # 0.5 K/mcL (0.0-1.3); Monocytes % 7.3 %; Neutrophils # 5.2 K/mcL (1.6-8.9); Platelet Count 154 K/mcL (140-400); Red Blood Count 3.24 M/mcL (4.19-5.50); Red Cell Distribution Width 14.6 % (11.5-14.5); Segmented Neutrophils % 81.3 %; White Blood Count 6.3 K/mcL (4.3-11.1)
[2021-08-07 14:07] LABS: INR 1.3; Prothrombin Time 14.1 Seconds (9.4-12.1)
[2021-08-07 14:10] LABS: Activated Partial Thrombo Time 31.8 Seconds (26.0-36.0)
[2021-08-07 14:11] LABS: Alanine Aminotransferase 12 Units/L (7-52); Albumin 3.3 g/dL (3.5-5.7); Albumin/Globulin Ratio 0.8 (1.1-2.2); Alkaline Phosphatase 183 Units/L (34-104); Aspartate Amino Transferase 15 Units/L (13-39); BUN/Creatinine Ratio 18 (6-26); Bilirubin,Direct 0.2 mg/dL (0.0-0.2); Bilirubin,Indirect 0.3 mg/dL (0.0-1.0); Bilirubin,Total 0.5 mg/dL (0.3-1.0); Blood Urea Nitrogen 49 mg/dL (8-23); Calcium 8.8 mg/dL (8.6-10.3); Carbon Dioxide 21 mEq/L (23-29); Chloride 106 mEq/L (98-107); Globulin 3.9 g/dL (2.4-3.5); Glucose 115 mg/dL (70-105); Osmolality,Calculated 296 (280-300); Potassium 4.4 mEq/L (3.5-5.1); Sodium 136 mEq/L (136-145); Total Protein 7.2 g/dL (6.4-8.9); Troponin I < 0.03 ng/mL (< 0.04); eGFR For African Americans 29 (> 60); eGFR For Non-African Americans 24 (> 60)
[2021-08-07] MEDS ORDERED: Bumetanide 1 MG/4 ML VIAL IVP ONE (14:51)
[2021-08-07] MEDS ORDERED: Acetaminophen 325 MG TABLET PO PRN (19:24)
[2021-08-07] MEDS ORDERED: Naloxone 0.4 MG/ML INJ IVP PRN (19:24)
[2021-08-07] MEDS ORDERED: Melatonin 3 MG TABLET PO PRN (19:24)
[2021-08-07] MEDS ORDERED: Ondansetron 4 MG/2 ML VIAL IVP PRN (19:24)
[2021-08-07] MEDS ORDERED: *HR* HYDROcodone/Acet 5/325 mg TABLET PO PRN (19:24)
[2021-08-07] MEDS ORDERED: *HR* Promethazine 25 MG/ML VIAL IM PRN (19:24)
[2021-08-07] MEDS: Insulin DETEMIR 100 UNIT/ML X5UNITS SUBQ SCH (21:42)
[2021-08-08 03:27] LABS: Albumin 3.1 g/dL (3.5-5.7); Albumin/Globulin Ratio 0.9 (1.1-2.2); Bilirubin,Total 0.5 mg/dL (0.3-1.0); Calcium 8.7 mg/dL (8.6-10.3); Globulin 3.6 g/dL (2.4-3.5); Magnesium 1.7 mg/dL (1.6-2.6); Potassium 4.9 mEq/L (3.5-5.1); Total Protein 6.7 g/dL (6.4-8.9)
[2021-08-08 03:57] LABS: INR 1.3; Prothrombin Time 14.1 Seconds (9.4-12.1)
[2021-08-08] MEDS: Bumetanide 1 MG/4 ML VIAL IVP SCH ×2 (08:24→16:50)
[2021-08-08] MEDS: Metoprolol XL (24 HR) Succ 25 MG TAB.ER.24H PO SCH (08:24)
[2021-08-08] MEDS: Aspirin Enteric Coated 81 MG Tablet PO SCH (08:24)
[2021-08-08] MEDS: allopurinoL 300 MG TABLET PO SCH (08:24)
[2021-08-08] MEDS: Insulin DETEMIR 100 UNIT/ML X5UNITS SUBQ SCH ×2 (12:19→22:04)
[2021-08-08] MEDS: *HR* Heparin 5,000 UNIT/ML VIAL SQ SCH ×2 (15:15→21:07)
[2021-08-08] MEDS: Albumin 25% 25gram/100mL 25 GM/100 ML IV.SOLN IVPB SCH (15:15)
[2021-08-09] MEDS: Albumin 25% 25gram/100mL 25 GM/100 ML IV.SOLN IVPB SCH ×3 (00:46→16:59)
[2021-08-09 02:31] LABS: Hematocrit 28.9 % (37.5-50.1); Hemoglobin 8.6 g/dL (12.9-16.9); Mean Corpuscular HGB Conc 29.8 g/dL (31.6-35.5); Mean Corpuscular Hemoglobin 28.1 pg (28.0-33.3); Mean Corpuscular Volume 94.4 fL (83.0-100.0); Mean Platelet Volume 11.1 fL (9.4-12.4); Platelet Count 149 K/mcL (140-400); Red Blood Count 3.06 M/mcL (4.19-5.50); Red Cell Distribution Width 14.6 % (11.5-14.5); White Blood Count 5.5 K/mcL (4.3-11.1)
[2021-08-09 02:45] LABS: Calcium 8.8 mg/dL (8.6-10.3)
[2021-08-09] MEDS: *HR* Heparin 5,000 UNIT/ML VIAL SQ SCH ×3 (05:49→20:46)
[2021-08-09] MEDS: Bumetanide 1 MG/4 ML VIAL IVP SCH ×2 (10:14→16:59)
[2021-08-09] MEDS: Metoprolol XL (24 HR) Succ 25 MG TAB.ER.24H PO SCH (10:16)
[2021-08-09] MEDS: allopurinoL 300 MG TABLET PO SCH (10:16)
[2021-08-09] MEDS: Insulin DETEMIR 100 UNIT/ML X5UNITS SUBQ SCH (10:16)
[2021-08-09] MEDS: Aspirin Enteric Coated 81 MG Tablet PO SCH (10:17)
[2021-08-09] MEDS: *HR* Dextrose 50 % in Water (Syg) 50 ML SYRINGE ONE ×2 (17:07→19:21)
[2021-08-09] MEDS ORDERED: D10% in Water 500 ML IVC SCH (17:30)
[2021-08-10] MEDS ORDERED: *HR* Dextrose 50 % in Water (Syg) 50 ML SYRINGE ONE (00:39)
[2021-08-10] MEDS ORDERED: D5% in Water 1,000 ML IVC PRN (00:41)
[2021-08-10] MEDS ORDERED: Dextrose Gel 15 GM/37.5 ML TUBE PO PRN ×2 (00:41)
[2021-08-10] MEDS ORDERED: *HR* Dextrose 50 % in Water (Syg) 50 ML SYRINGE IVP PRN (00:41)
[2021-08-10] MEDS: *HR* Dextrose 50 % in Water (Syg) 50 ML SYRINGE ONE (00:41)
[2021-08-10] MEDS: Albumin 25% 25gram/100mL 25 GM/100 ML IV.SOLN IVPB SCH (00:44)
[2021-08-10] MEDS: D10% in Water 500 ML IVC SCH ×3 (02:00→22:25)
[2021-08-10 05:05] LABS: Hematocrit 30.9 % (37.5-50.1); Hemoglobin 9.1 g/dL (12.9-16.9); Mean Corpuscular HGB Conc 29.4 g/dL (31.6-35.5); Mean Corpuscular Hemoglobin 27.8 pg (28.0-33.3); Mean Corpuscular Volume 94.5 fL (83.0-100.0); Mean Platelet Volume 12.1 fL (9.4-12.4); Platelet Count 158 K/mcL (140-400); Red Blood Count 3.27 M/mcL (4.19-5.50); Red Cell Distribution Width 14.5 % (11.5-14.5)
[2021-08-10 05:20] LABS: Iron 22 mcg/dL (65-175)
[2021-08-10 05:22] LABS: Calcium 9.2 mg/dL (8.6-10.3); Potassium 4.9 mEq/L (3.5-5.1)
[2021-08-10] MEDS: *HR* Heparin 5,000 UNIT/ML VIAL SQ SCH ×3 (07:10→21:37)
[2021-08-10] MEDS: Metoprolol XL (24 HR) Succ 25 MG TAB.ER.24H PO SCH (10:05)
[2021-08-10] MEDS: allopurinoL 300 MG TABLET PO SCH (10:06)
[2021-08-10] MEDS: Bumetanide 1 MG/4 ML VIAL IVP SCH ×2 (10:06→17:18)
[2021-08-10] MEDS: Aspirin Enteric Coated 81 MG Tablet PO SCH (10:06)
[2021-08-10 14:26] LABS: % Iron Saturation 11 % (20-55); Transferrin 140 mg/dL (203-362)
[2021-08-11 05:50] LABS: Hematocrit 28.2 % (37.5-50.1); Hemoglobin 8.8 g/dL (12.9-16.9); Mean Corpuscular HGB Conc 31.2 g/dL (31.6-35.5); Mean Corpuscular Volume 93.1 fL (83.0-100.0); Mean Platelet Volume 11.9 fL (9.4-12.4); Platelet Count 165 K/mcL (140-400); Red Blood Count 3.03 M/mcL (4.19-5.50); Red Cell Distribution Width 14.6 % (11.5-14.5); White Blood Count 5.6 K/mcL (4.3-11.1)
[2021-08-11 06:10] LABS: Albumin 3.7 g/dL (3.5-5.7); Albumin/Globulin Ratio 1.3 (1.1-2.2); Bilirubin,Total 0.6 mg/dL (0.3-1.0); Calcium 9.1 mg/dL (8.6-10.3); Globulin 2.9 g/dL (2.4-3.5); Potassium 4.8 mEq/L (3.5-5.1); Total Protein 6.6 g/dL (6.4-8.9)
[2021-08-11] MEDS: *HR* Heparin 5,000 UNIT/ML VIAL SQ SCH ×3 (07:16→22:04)
[2021-08-11] MEDS: Bumetanide 1 MG/4 ML VIAL IVP SCH ×2 (07:48→16:40)
[2021-08-11] MEDS: allopurinoL 300 MG TABLET PO SCH (07:49)
[2021-08-11] MEDS: Aspirin Enteric Coated 81 MG Tablet PO SCH (07:49)
[2021-08-11] MEDS: Metoprolol XL (24 HR) Succ 25 MG TAB.ER.24H PO SCH (07:49)
[2021-08-12] MEDS: D10% in Water 500 ML IVC SCH (00:57)
[2021-08-12 05:41] LABS: Calcium 9.1 mg/dL (8.6-10.3); Potassium 4.8 mEq/L (3.5-5.1)
[2021-08-12] MEDS: *HR* Heparin 5,000 UNIT/ML VIAL SQ SCH ×2 (06:25→14:16)
[2021-08-12] MEDS: Metoprolol XL (24 HR) Succ 25 MG TAB.ER.24H PO SCH (08:32)
[2021-08-12] MEDS: Aspirin Enteric Coated 81 MG Tablet PO SCH (08:32)
[2021-08-12] MEDS: Bumetanide 1 MG/4 ML VIAL IVP SCH (08:32)
[2021-08-12] MEDS: allopurinoL 300 MG TABLET PO SCH (08:32)
[2021-08-12 11:31] LABS: Estimated Average Glucose 128 mg/dl; Hemoglobin A1C 6.1 %
[2021-08-12 11:38] VITALS: BP 112/62; PULSE 94; TEMP 97.9; O2SAT 96
[2021-08-12] MEDS ORDERED: FLU Vac QV 21-22 (6Month+)/PF 0.5 ML SYRINGE IM ONE (15:14)
[2021-08-13] MEDS ORDERED: Ergocalciferol (VIT D2) 50,000 UNIT (1.25MG) CAP PO SCH (09:00)
== END 2021-08-12 16:04 | disposition home or self-care (01) | DRG 291 ==
LOC: 2ANU 12:39 → EMEROOARM 12:39 → SUATTDRO 19:31 → 3NENU 19:32
PROVIDERS: ADMIT Internal Medicine; ATTEND Hospitalist

== ENCOUNTER 2021-09-01 12:02 | Inpatient (IN) ==
[2021-09-01 13:59] LABS: Basophils % 0.5 %; Eosinophils # 0.2 K/mcL (0.0-0.6); Hematocrit 30.1 % (37.5-50.1); Hemoglobin 8.8 g/dL (12.9-16.9); Immature Granulocytes % 0.3 % (0-4); Lymphocytes # 0.9 K/mcL (0.6-4.6); Lymphocytes % 11.9 %; Mean Corpuscular HGB Conc 29.2 g/dL (31.6-35.5); Mean Corpuscular Hemoglobin 27.4 pg (28.0-33.3); Mean Corpuscular Volume 93.8 fL (83.0-100.0); Mean Platelet Volume 11.8 fL (9.4-12.4); Monocytes # 0.8 K/mcL (0.0-1.3); Monocytes % 10.4 %; Neutrophils # 5.5 K/mcL (1.6-8.9); Platelet Count 183 K/mcL (140-400); Red Blood Count 3.21 M/mcL (4.19-5.50); Segmented Neutrophils % 74.9 %; White Blood Count 7.3 K/mcL (4.3-11.1)
[2021-09-01 14:04] LABS: INR 1.3; Prothrombin Time 14.6 Seconds (9.4-12.1)
[2021-09-01 14:06] LABS: Activated Partial Thrombo Time 32.2 Seconds (26.0-36.0)
[2021-09-01 14:52] LABS: Calcium 8.9 mg/dL (8.6-10.3); Potassium 4.6 mEq/L (3.5-5.1); Troponin I 0.04 ng/mL (< 0.04)
[2021-09-01] MEDS ORDERED: *HR* Heparin 5,000 UNIT/ML VIAL IVP ONE (16:41)
[2021-09-01] MEDS ORDERED: *HR* Heparin 5,000 UNIT/ML VIAL IVP PRN ×2 (16:41)
[2021-09-01 17:28] LABS: Hematocrit 31.3 % (37.5-50.1); Hemoglobin 9.3 g/dL (12.9-16.9); Mean Corpuscular HGB Conc 29.7 g/dL (31.6-35.5); Mean Corpuscular Hemoglobin 28.3 pg (28.0-33.3); Mean Corpuscular Volume 95.1 fL (83.0-100.0); Mean Platelet Volume 11.6 fL (9.4-12.4); Platelet Count 185 K/mcL (140-400); Red Blood Count 3.29 M/mcL (4.19-5.50); White Blood Count 7.5 K/mcL (4.3-11.1)
[2021-09-01] MEDS: Heparin 25,000UNIT/250ML 1/2NS 25,000 UNIT/250 ML IV.SOLN IVC SCH (17:31)
[2021-09-01 17:43] LABS: INR 1.3; Prothrombin Time 14.4 Seconds (9.4-12.1)
[2021-09-01 17:45] LABS: Heparin anti-factor XA UFH < 0.04 IU/mL (0.30-0.70)
[2021-09-01] MEDS ORDERED: *HR* Dextrose 50 % in Water (Syg) 50 ML SYRINGE IVP PRN (17:45)
[2021-09-01] MEDS ORDERED: Ondansetron 4 MG/2 ML VIAL IVP PRN (17:45)
[2021-09-01] MEDS ORDERED: Dextrose Gel 15 GM/37.5 ML TUBE PO PRN ×2 (17:45)
[2021-09-01] MEDS ORDERED: D5% in Water 1,000 ML IVC PRN (17:45)
[2021-09-01] MEDS ORDERED: Naloxone 0.4 MG/ML INJ IVP PRN (17:45)
[2021-09-01] MEDS ORDERED: Acetaminophen 325 MG TABLET PO PRN (17:45)
[2021-09-01] MEDS: Bumetanide 1 MG TABLET PO SCH (20:31)
[2021-09-01] MEDS: Insulin LISPRO 300 UNITS/3 ML VIAL SUBQ SCH (20:32)
[2021-09-02 02:25] LABS: Hematocrit 29.6 % (37.5-50.1); Hemoglobin 8.7 g/dL (12.9-16.9); Mean Corpuscular HGB Conc 29.4 g/dL (31.6-35.5); Mean Corpuscular Hemoglobin 27.6 pg (28.0-33.3); Mean Platelet Volume 11.4 fL (9.4-12.4); Platelet Count 185 K/mcL (140-400); Red Blood Count 3.15 M/mcL (4.19-5.50); Red Cell Distribution Width 15.1 % (11.5-14.5); White Blood Count 5.8 K/mcL (4.3-11.1)
[2021-09-02 02:46] LABS: INR 1.4; Prothrombin Time 15.6 Seconds (9.4-12.1)
[2021-09-02] MEDS: Insulin LISPRO 300 UNITS/3 ML VIAL SUBQ SCH ×4 (07:49→21:00)
[2021-09-02] MEDS: Aspirin Enteric Coated 81 MG Tablet PO SCH (08:19)
[2021-09-02] MEDS: allopurinoL 300 MG TABLET PO SCH (08:19)
[2021-09-02] MEDS: Bumetanide 1 MG TABLET PO SCH (08:19)
[2021-09-02] MEDS: Metoprolol XL (24 HR) Succ 25 MG TAB.ER.24H PO SCH (08:19)
[2021-09-02] MEDS: Heparin 25,000UNIT/250ML 1/2NS 25,000 UNIT/250 ML IV.SOLN IVC SCH (11:26)
[2021-09-02] MEDS: Heparin 25,000 UNIT/250 ML 25,000 UNIT/250 ML IV.SOLN IVC SCH (13:34)
[2021-09-02] MEDS: Bumetanide 1 MG/4 ML VIAL IVP SCH (13:35)
[2021-09-03 01:49] LABS: Basophils % 0.5 %; Eosinophils # 0.2 K/mcL (0.0-0.6); Eosinophils % 3.5 %; Hemoglobin 8.4 g/dL (12.9-16.9); Immature Granulocytes % 0.2 % (0-4); Lymphocytes # 1.1 K/mcL (0.6-4.6); Lymphocytes % 19.8 %; Mean Corpuscular Hemoglobin 28.5 pg (28.0-33.3); Mean Corpuscular Volume 94.9 fL (83.0-100.0); Mean Platelet Volume 11.8 fL (9.4-12.4); Monocytes # 0.5 K/mcL (0.0-1.3); Monocytes % 9.3 %; Neutrophils # 3.8 K/mcL (1.6-8.9); Platelet Count 170 K/mcL (140-400); Red Blood Count 2.95 M/mcL (4.19-5.50); Segmented Neutrophils % 66.7 %; White Blood Count 5.7 K/mcL (4.3-11.1)
[2021-09-03 01:56] LABS: Calcium 8.8 mg/dL (8.6-10.3); Potassium 4.6 mEq/L (3.5-5.1)
[2021-09-03] MEDS: Heparin 25,000 UNIT/250 ML 25,000 UNIT/250 ML IV.SOLN IVC SCH (09:13)
[2021-09-03] MEDS ORDERED: Albumin 25% 25gram/100mL 25 GM/100 ML IV.SOLN IVPB ONE (09:38)
[2021-09-03] MEDS: Aspirin Enteric Coated 81 MG Tablet PO SCH (10:00)
[2021-09-03] MEDS: Metoprolol XL (24 HR) Succ 25 MG TAB.ER.24H PO SCH (10:00)
[2021-09-03] MEDS: allopurinoL 300 MG TABLET PO SCH (10:00)
[2021-09-03] MEDS: Bumetanide 1 MG/4 ML VIAL IVP SCH (10:35)
[2021-09-03] MEDS: Insulin LISPRO 300 UNITS/3 ML VIAL SUBQ SCH ×4 (10:47→19:56)
[2021-09-03 12:52] LABS: Heparin anti-factor XA UFH 0.42 IU/mL (0.30-0.70)
[2021-09-03] MEDS ORDERED: Perflutren Lipid Microsphere 1.3 ML in 0.9 % Sodium Chloride 8.7 ML IVP PRN (13:52)
[2021-09-03 15:15] LABS: INR 1.3; Prothrombin Time 14.6 Seconds (9.4-12.1)
[2021-09-03] MEDS ORDERED: *HR* Warfarin 5 MG TABLET PO ONE (18:00)
[2021-09-03] MEDS ORDERED: Warfarin perPT PO PRN (18:00)
[2021-09-04 05:13] LABS: Basophils % 0.6 %; Eosinophils # 0.2 K/mcL (0.0-0.6); Eosinophils % 3.2 %; Hematocrit 27.9 % (37.5-50.1); Hemoglobin 8.3 g/dL (12.9-16.9); Immature Granulocytes % 0.2 % (0-4); Lymphocytes # 0.9 K/mcL (0.6-4.6); Lymphocytes % 16.3 %; Mean Corpuscular HGB Conc 29.7 g/dL (31.6-35.5); Mean Corpuscular Hemoglobin 28.5 pg (28.0-33.3); Mean Corpuscular Volume 95.9 fL (83.0-100.0); Mean Platelet Volume 12.2 fL (9.4-12.4); Monocytes # 0.5 K/mcL (0.0-1.3); Monocytes % 8.7 %; Neutrophils # 3.7 K/mcL (1.6-8.9); Platelet Count 171 K/mcL (140-400); Red Blood Count 2.91 M/mcL (4.19-5.50); Red Cell Distribution Width 15.1 % (11.5-14.5); White Blood Count 5.3 K/mcL (4.3-11.1)
[2021-09-04 05:26] LABS: Potassium 4.3 mEq/L (3.5-5.1)
[2021-09-04 05:28] LABS: INR 1.3; Prothrombin Time 14.4 Seconds (9.4-12.1)
[2021-09-04] MEDS: Heparin 25,000 UNIT/250 ML 25,000 UNIT/250 ML IV.SOLN IVC SCH ×2 (05:36→23:21)
[2021-09-04] MEDS: Insulin LISPRO 300 UNITS/3 ML VIAL SUBQ SCH ×4 (07:52→20:30)
[2021-09-04] MEDS: Metoprolol XL (24 HR) Succ 25 MG TAB.ER.24H PO SCH (07:58)
[2021-09-04] MEDS: allopurinoL 300 MG TABLET PO SCH (07:58)
[2021-09-04] MEDS: Bumetanide 1 MG TABLET PO SCH (07:58)
[2021-09-04] MEDS: Aspirin Enteric Coated 81 MG Tablet PO SCH (07:58)
[2021-09-04] MEDS ORDERED: *HR* Warfarin 2.5 MG TABLET PO ONE (18:00)
[2021-09-05 05:58] LABS: Basophils % 0.4 %; Eosinophils # 0.2 K/mcL (0.0-0.6); Eosinophils % 3.7 %; Hematocrit 28.1 % (37.5-50.1); Hemoglobin 8.4 g/dL (12.9-16.9); Immature Granulocytes % 0.2 % (0-4); Lymphocytes # 0.8 K/mcL (0.6-4.6); Lymphocytes % 15.2 %; Mean Corpuscular HGB Conc 29.9 g/dL (31.6-35.5); Mean Corpuscular Hemoglobin 27.7 pg (28.0-33.3); Mean Corpuscular Volume 92.7 fL (83.0-100.0); Mean Platelet Volume 11.1 fL (9.4-12.4); Monocytes # 0.5 K/mcL (0.0-1.3); Monocytes % 9.4 %; Neutrophils # 3.6 K/mcL (1.6-8.9); Platelet Count 167 K/mcL (140-400); Red Blood Count 3.03 M/mcL (4.19-5.50); Red Cell Distribution Width 15.1 % (11.5-14.5); Segmented Neutrophils % 71.1 %; White Blood Count 5.1 K/mcL (4.3-11.1)
[2021-09-05 06:00] LABS: INR 1.3; Prothrombin Time 14.5 Seconds (9.4-12.1)
[2021-09-05 06:20] LABS: Calcium 9.2 mg/dL (8.6-10.3); Potassium 4.3 mEq/L (3.5-5.1)
[2021-09-05] MEDS: Insulin LISPRO 300 UNITS/3 ML VIAL SUBQ SCH ×4 (07:56→20:35)
[2021-09-05] MEDS: allopurinoL 300 MG TABLET PO SCH (07:57)
[2021-09-05] MEDS: Bumetanide 1 MG TABLET PO SCH ×2 (07:57→17:12)
[2021-09-05] MEDS: Aspirin Enteric Coated 81 MG Tablet PO SCH (07:57)
[2021-09-05] MEDS: Metoprolol XL (24 HR) Succ 25 MG TAB.ER.24H PO SCH (07:57)
[2021-09-05] MEDS: Isosorbide MONOnitrate (24 HR) 30 MG TAB.ER.24H PO SCH (15:06)
[2021-09-05] MEDS ORDERED: hydrALAZINE 10 MG TABLET PO SCH (18:00)
[2021-09-05] MEDS ORDERED: *HR* Warfarin 2.5 MG TABLET PO ONE (18:00)
[2021-09-05] MEDS: hydrALAZINE 10 MG TABLET PO SCH (18:40)
[2021-09-05] MEDS: Heparin 25,000 UNIT/250 ML 25,000 UNIT/250 ML IV.SOLN IVC SCH ×2 (20:35→23:16)
[2021-09-06] MEDS: hydrALAZINE 10 MG TABLET PO SCH ×2 (00:34→05:58)
[2021-09-06] MEDS: Bumetanide 1 MG TABLET PO SCH ×2 (05:58→18:14)
[2021-09-06 07:15] LABS: Basophils % 0.3 %; Eosinophils # 0.2 K/mcL (0.0-0.6); Hematocrit 26.5 % (37.5-50.1); Hemoglobin 8.1 g/dL (12.9-16.9); Immature Granulocytes % 0.3 % (0-4); Lymphocytes # 0.9 K/mcL (0.6-4.6); Lymphocytes % 14.3 %; Mean Corpuscular HGB Conc 30.6 g/dL (31.6-35.5); Mean Corpuscular Hemoglobin 28.6 pg (28.0-33.3); Mean Corpuscular Volume 93.6 fL (83.0-100.0); Mean Platelet Volume 11.6 fL (9.4-12.4); Monocytes # 0.6 K/mcL (0.0-1.3); Monocytes % 9.4 %; Neutrophils # 4.3 K/mcL (1.6-8.9); Platelet Count 166 K/mcL (140-400); Red Blood Count 2.83 M/mcL (4.19-5.50); Segmented Neutrophils % 72.7 %; White Blood Count 5.9 K/mcL (4.3-11.1)
[2021-09-06 07:38] LABS: INR 1.4; Prothrombin Time 15.3 Seconds (9.4-12.1)
[2021-09-06 08:08] LABS: Potassium 4.3 mEq/L (3.5-5.1)
[2021-09-06] MEDS: Insulin LISPRO 300 UNITS/3 ML VIAL SUBQ SCH ×2 (08:26→13:12)
[2021-09-06] MEDS: Aspirin Enteric Coated 81 MG Tablet PO SCH (08:28)
[2021-09-06] MEDS: Isosorbide MONOnitrate (24 HR) 30 MG TAB.ER.24H PO SCH (08:28)
[2021-09-06] MEDS: allopurinoL 300 MG TABLET PO SCH (08:28)
[2021-09-06] MEDS ORDERED: Metoprolol XL (24 HR) Succ 25 MG TAB.ER.24H PO SCH (09:00)
[2021-09-06 09:55] LABS: Total Protein,Pleural Fluid 2.9 g/dL
[2021-09-06 09:59] LABS: RBC,Pleural Fluid < 2000 RBC/mcL
[2021-09-06 10:40] LABS: Basophils,Pleural Fluid 0 %; Eosinophils,Pleural Fluid 0 %
[2021-09-06 10:46] LABS: Appearance of Pleural Fl Clear (Clear)
[2021-09-06] MEDS ORDERED: hydrALAZINE 25 MG TABLET PO SCH (15:00)
[2021-09-06] MEDS: Heparin 25,000 UNIT/250 ML 25,000 UNIT/250 ML IV.SOLN IVC SCH (15:19)
[2021-09-06 15:59] LABS: Total Protein 5.9 g/dL (6.4-8.9); Troponin I 0.03 ng/mL (< 0.04)
[2021-09-06] MEDS ORDERED: 0.9 % Sodium Chloride 250 ML IVC ONE (17:46)
[2021-09-06] MEDS ORDERED: Albumin 25% 25gram/100mL 25 GM/100 ML IV.SOLN IVPB ONE (17:46)
[2021-09-06] MEDS ORDERED: *HR* Warfarin 5 MG TABLET PO ONE (18:00)
[2021-09-06 18:45] VITALS: TEMP 97.8
[2021-09-06] MEDS ORDERED: 0.9 % Sodium Chloride 1,000 ML ONE (18:46)
[2021-09-06] MEDS ORDERED: 0.9 % Sodium Chloride 1,000 ML IVC ONE (18:48)
[2021-09-06 19:14] VITALS: BP 51/21; PULSE 33
[2021-09-06] MEDS ORDERED: Norepinephrine 4 MG/254 ML in 0.9% Sodium Chloride IVC ONE (19:54)
[2021-09-06] MEDS ORDERED: *HR* EPINEPHrine 1 MG/10 ML SYRINGE IVP ONE (19:54)
[2021-09-06] MEDS ORDERED: *HR* Amiodarone 450 MG/9 ML VIAL IVC ONE (19:54)
[2021-09-06 20:46] VITALS: O2SAT 78
[2021-09-09 10:32] LABS: Cholesterol,Body Fluid 44 mg/dL; Fluid Source for Cholesterol PLEURAL FLUID
== END 2021-09-06 19:55 | disposition expired | DRG 291 ==
LOC: EMEROOARM 12:02 → 2NENU 12:02 → SUATTDRO 18:28 → 2NENU 18:48 → SUATTDRO 09-03 17:08
PROVIDERS: ADMIT Pharmacist; ATTEND Internal Medicine